=== PATIENT | female | born 2000 | race American Indian/Alaskan Native ===

== ENCOUNTER 2021-02-22 04:13 | Inpatient (IN) | payer MEDICAID, OTHER ==
[2021-02-22] MEDS ORDERED: MORPHINE 4 MG/1 ML INJ IV ONE ×3 (04:49→22:00)
[2021-02-22] MEDS ORDERED: SODIUM CHLORIDE 0.9% 1000 ML 1,000 ML IV ONE ×2 (04:49→07:31)
[2021-02-22] MEDS ORDERED: METOCLOPRAMIDE 10 MG/2 ML INJ IV ONE (04:50)
--- NOTE | 2021-02-22 04:54 | Event Note ---
Date: 02/22/21 Medical screening examination note: 20-year-old female, who reports that she is a type II diabetic, resenting to the ER today with complaints of abdominal cramping, hyperglycemia, nausea. Patient appears uncomfortable. Place patient on resident doctor. obtain appropriate laboratory studies. Fluids, pain medication, nausea medication, detailed history and physical to be performed by oncoming provider. Vital Signs 02/22/21 04:16 Temperature 98.9 F Pulse Rate 148 H Respiratory 19 Rate Blood Pressure 140/98 [Left] O2 Sat by Pulse 100 Oximetry
[2021-02-22 06:05] LABS: Alanine Aminotransferase 16 units/L (7-56); Albumin 5.1 g/dL (3.9-5); BUN/Creatinine Ratio 23; Blood Urea Nitrogen 28 mg/dL (7-17); Calcium 11.3 mg/dL (8.4-10.2); Hemolysis Index 24
[2021-02-22 06:33] LABS: Basophils % (Auto) 0.1 % (0.0-1.8); Hematocrit 51.7 % (30.3-42.9); Hemoglobin 15.6 gm/dl (10.1-14.3); Lymphocytes # (Auto) 0.7 K/mm3 (1.2-5.4); Lymphocytes % (Auto) 7.4 % (13.4-35.0); Mean Corpuscular HGB Conc 30 % (30-34); Mean Corpuscular Volume 86 fl (79-97); Monocytes # (Auto) 0.6 K/mm3 (0.0-0.8); Monocytes % (Auto) 6.3 % (0.0-7.3); Platelet Count 295 K/mm3 (140-440); Red Cell Distribution Width 17.8 % (13.2-15.2)
--- NOTE | 2021-02-22 06:34 | Emergency Department Report ---
ED General Adult HPI - General Chief complaint: Hyperglycemia Stated complaint: HIGH BLOOD SUGAR Time Seen by Provider: 02/22/21 05:57 Source: EMS Mode of arrival: Stretcher Limitations: No Limitations - History of Present Illness Initial comments: Patient presented secondary to elevated blood sugar. Patient states that she is having abdominal pain associate with her hyperglycemia. She has type 2 diabetes by her history. She also reports a history of gastroparesis and states that is what is bothering her. She reports having cramping upper abdominal pain. It is aching in nature. It is cramping in nature. It does not radiate or migrate. Patient has no history of travel or trauma. She has had nausea with vomiting but no hematemesis or coffee-ground emesis. She denies bilious vomitus. Patient reports urinary frequency but no dysuria or urgency. She states that this is consistent with her diabetes and elevated blood sugar. Patient states she has not had any sick contacts. She has not eaten anything that tasted bad or unusual. - Related Data Allergies Allergy/AdvReac Type Severity Reaction Status Date / Time No Known Allergies Allergy Verified 02/22/21 04:16 ED Review of Systems ROS: Stated complaint: HIGH BLOOD SUGAR Other details as noted in HPI Comment: All other systems reviewed and negative Constitutional: denies: fever Eyes: denies: vision change ENT: denies: throat pain Respiratory: denies: cough Cardiovascular: denies: chest pain Endocrine: denies: unexplained weight loss Gastrointestinal: as per HPI Genitourinary: as per HPI Musculoskeletal: denies: back pain Skin: denies: rash Neurological: denies: headache Hematological/Lymphatic: denies: easy bruising ED Past Medical Hx - Past Medical History Hx Diabetes: Yes Additional medical history: Gastroparesis - Family History Family history: diabetes ED Physical Exam - General Limitations: No Limitations, Other (Pulse ox noted and normal) General appearance: in distress (Mild), other (Somnolent) - Head Head exam: Present: atraumatic, normocephalic - Eye Eye exam: Present: normal appearance, EOMI - ENT ENT exam: Present: mucous membranes dry, normal external ear exam - Neck Neck exam: Present: normal inspection. Absent: meningismus - Respiratory Respiratory exam: Present: normal lung sounds bilaterally. Absent: respiratory distress - Cardiovascular Cardiovascular Exam: Present: normal rhythm, tachycardia - GI/Abdominal GI/Abdominal exam: Present: soft, tenderness (Epigastric). Absent: distended, guarding, rebound - Extremities Exam Extremities exam: Present: other (Delayed capillary refill of 4 seconds). Absent: calf tenderness - Back Exam Back exam: Absent: CVA tenderness (R), CVA tenderness (L) - Neurological Exam Neurological exam: Present: oriented X3, CN II-XII intact. Absent: motor sensory deficit - Psychiatric Psychiatric exam: Present: normal affect, normal mood - Skin Skin exam: Present: warm, dry ED Course Vital Signs 02/22/21 04:16 Temperature 98.9 F Pulse Rate 148 H Respiratory 19 Rate Blood Pressure 140/98 [Left] O2 Sat by Pulse 100 Oximetry - Reevaluation(s) Reevaluation #1: 02/22/21 06:33 IV and labs were ordered. Old records reviewed. Reevaluation #2: 02/22/21 07:12 Labs have been noted. DKA protocol was started. Hospitalist was notified who agrees to admit. ED Medical Decision Making - Lab Data Result diagrams: 02/22/21 05:15 02/22/21 05:15 Rhythm strip: Sinus tachycardia without ectopy. Monitor observe 10 seconds. - Medical Decision Making Patient presents with abdominal pain. She was found to be tachycardic and dehydrated. She has evidence of DKA based on her presentation. DKA protocol was instituted. Patient was admitted to the intensive care unit on an insulin drip. She does have hyperkalemia which will correct with treatment. She has hyper per Tony C. Phyllis which will also correct with hydration. She has been hydrated here. She does not appear to have any obvious infectious source. She is not . Critical Care Time: Yes (40 minutes exclusive of all procedures) Critical care attestation.: If time is entered above; I have spent that time in minutes in the direct care of this critically ill patient, excluding procedure time. ED Disposition Clinical Impression: Dehydration DKA (diabetic ketoacidosis) Qualifiers: Diabetes mellitus type: type 2 Diabetes mellitus complication detail: without coma Qualified Code(s): E11.10 - Type 2 diabetes mellitus with ketoacidosis without coma Disposition: 09 ADMITTED INPATIENT Is pt being admited?: Yes Condition: Stable Instructions: Diabetic Ketoacidosis (ED) Referrals: PRIMARY CARE, [Primary Care Provider] - 3-5 Days
[2021-02-22] MEDS ORDERED: DEXTROSE 50% IN WATER (25GM) 50 ML SYRINGE IV PRN (07:09)
[2021-02-22 08:06] LABS: BUN/Creatinine Ratio 25; Blood Urea Nitrogen 25 mg/dL (7-17); Calcium 8.7 mg/dL (8.4-10.2); Hemolysis Index 39
[2021-02-22] MEDS: INSULIN REGULAR, HUMAN 100 UNITS in SODIUM CHLORIDE 0.9% 99 ML IV SCH (08:18)
--- NOTE | 2021-02-22 09:21 | History and Physical Report ---
History of Present Illness Date of examination: 02/22/21 History of present illness: HPI: 20-year-old female with self-reported history of type 2 diabetes and gastroparesis presenting to our facility with abdominal pain, hyperglycemia, nausea. She describes the abdominal pain as generalized and "achy" in nature patient states that onset of symptoms was 1 to 2 days ago. Nausea is associated with bilious vomiting but patient denies hematemesis. Symptoms associated with increased polyuria. She denies any recent upper respiratory infections, urinary tract infection, exposure to any sick contacts. Remainder of ROS negative except for stated above When questioned about her diabetic regimen, patient unable to provide specific details. She states that she does not follow-up with a physician as an outpatient for her medication regimen. She states that if she primarily gets her insulin from hospital admissions. ED Course: PMHx: Type 2 diabetes, gastroparesis, medication noncompliance PSHx: Denies FHx: Reviewed noncontributory SHx: Tobacco use-denies ETOH Use-denies Recreational Drug Use-denies Lives with her mother and sister. Medications and Allergies Allergies Allergy/AdvReac Type Severity Reaction Status Date / Time No Known Allergies Allergy Verified 02/22/21 04:16 Active Meds: Active Medications Acetaminophen (Acetaminophen 325 Mg Tab) 650 mg PO Q4H PRN PRN Reason: Pain MILD(1-3)/Fever >100.5/HATCH Dextrose (Dextrose 50% In Water (25gm) 50 Ml Syringe) 0 ml IV Q30MIN PRN; Protocol PRN Reason: Hypoglycemia Insulin Human Regular 100 (units/ Sodium Chloride) 100 mls @ 1 mls/hr IV TITR DAVID; Protocol Last Admin: 02/22/21 08:18 Dose: 7 units/hr, 7 mls/hr Documented by: Ondansetron HCl (Ondansetron 4 Mg/2 Ml Inj) 4 mg IV Q8H PRN PRN Reason: Nausea And Vomiting Oxycodone/Acetaminophen (Oxycodone /Acetaminophen 5-325mg Tab) 1 tab PO Q6H PRN PRN Reason: Pain, Moderate (4-6) Sodium Chloride (Sodium Chloride 0.9% 10 Ml Flush Syringe) 10 ml IV BID DAVID Sodium Chloride (Sodium Chloride 0.9% 10 Ml Flush Syringe) 10 ml IV PRN PRN PRN Reason: LINE FLUSH Review of Systems All systems: negative Gastrointestinal: abdominal pain, nausea, vomiting Genitourinary Female: urinary frequency Exam - Physical Exam Narrative exam: Physical Exam: VITAL SIGNS: Reviewed. GENERAL: The patient appears normally developed, Vital signs as documented. M ild distress HEAD: No signs of head trauma. EYES: Pupils are equal. Extraocular motions intact. EARS: Hearing grossly intact. MOUTH: Oropharynx is normal. NECK: No adenopathy, no JVD. CHEST: Chest with clear breath sounds bilaterally. No wheezes, rales, or rhonchi. CARDIAC: Regular rate and rhythm. S1 and S2, without murmurs, gallops, or rubs. VASCULAR: No Edema. Peripheral pulses normal and equal in all extremities. ABDOMEN: Tender to palpation. Bowel Sounds normal. MUSCULOSKELETAL: Good range of motion of all major joints. Extremities without clubbing, cyanosis or edema. NEUROLOGIC EXAM: Alert and oriented x 4. no focal sensory or strength deficits. PSYCHIATRIC: Mood normal. SKIN: detail exam as documented in skin assessment - Constitutional Vitals: Temp Pulse Resp BP Pulse Ox 98.9 F 140 H 18 132/76 100 02/22/21 04:16 02/22/21 06:16 02/22/21 06:16 02/22/21 06:16 02/22/21 06:16 Results - Labs CBC & Chem 7: 02/22/21 05:15 02/22/21 11:10 Labs: Laboratory Last Values WBC 9.7 K/mm3 (4.5-11.0) 02/22/21 05:15 RBC 6.00 M/mm3 (3.65-5.03) H 02/22/21 05:15 Hgb 15.6 gm/dl (10.1-14.3) H 02/22/21 05:15 Hct 51.7 % (30.3-42.9) H 02/22/21 05:15 MCV 86 fl (79-97) 02/22/21 05:15 MCH 26 pg (28-32) L 02/22/21 05:15 MCHC 30 % (30-34) 02/22/21 05:15 RDW 17.8 % (13.2-15.2) H 02/22/21 05:15 Plt Count 295 K/mm3 (140-440) 02/22/21 05:15 Lymph % (Auto) 7.4 % (13.4-35.0) L 02/22/21 05:15 [place] % (Auto) 6.3 % (0.0-7.3) 02/22/21 05:15 Eos % (Auto) 0.0 % (0.0-4.3) 02/22/21 05:15 Baso % (Auto) 0.1 % (0.0-1.8) 02/22/21 05:15 Lymph # (Auto) 0.7 K/mm3 (1.2-5.4) L 02/22/21 05:15 [place] # (Auto) 0.6 K/mm3 (0.0-0.8) 02/22/21 05:15 Eos # (Auto) 0.0 K/mm3 (0.0-0.4) 02/22/21 05:15 Baso # (Auto) 0.0 K/mm3 (0.0-0.1) 02/22/21 05:15 Seg Neutrophils % 86.2 % (40.0-70.0) H 02/22/21 05:15 Seg Neutrophils # 8.4 K/mm3 (1.8-7.7) H 02/22/21 05:15 VBG pH 7.176 (7.320-7.420) L* 02/22/21 05:15 Sodium 143 mmol/L (137-145) 02/22/21 07:37 Potassium 5.3 mmol/L (3.6-5.0) H 02/22/21 07:37 Chloride 109.8 mmol/L (98-107) H 02/22/21 07:37 Carbon Dioxide 5 mmol/L (22-30) L* 02/22/21 07:37 Anion Gap 34 mmol/L 02/22/21 07:37 BUN 25 mg/dL (7-17) H 02/22/21 07:37 Creatinine 1.0 mg/dL (0.6-1.2) 02/22/21 07:37 Estimated GFR > 60 ml/min 02/22/21 07:37 BUN/Creatinine Ratio 25 % 02/22/21 07:37 Glucose 458 mg/dL (65-100) H 02/22/21 07:37 POC Glucose 399 mg/dL (70-105) H 02/22/21 08:04 Calcium 8.7 mg/dL (8.4-10.2) D 02/22/21 07:37 Phosphorus 3.20 mg/dL (2.5-4.5) 02/22/21 07:37 Magnesium 1.90 mg/dL (1.7-2.3) 02/22/21 07:37 Total Bilirubin 0.20 mg/dL (0.1-1.2) 02/22/21 05:15 AST 14 units/L (5-40) 02/22/21 05:15 ALT 16 units/L (7-56) 02/22/21 05:15 Alkaline Phosphatase 80 units/L (35-129) 02/22/21 05:15 Total Protein 9.5 g/dL (6.3-8.2) H 02/22/21 05:15 Albumin 5.1 g/dL (3.9-5) H 02/22/21 05:15 Albumin/Globulin Ratio 1.2 % 02/22/21 05:15 HCG, Quant < 2 mIU/mL (0-4) 02/22/21 05:15 Assessment and Plan Assessment and plan: #Diabetic ketoacidosis - abd pain, N/V, GAP: 37.5 on admission, ph 7.2, bicarb: 5. - likely precipitated by noncompliance with insulin regimen - insulin gtt - Currently on D5/1/2 NS on my encounter - dka protocol, BMP q4hr, monitor for gap closure - NPO while GAP remains open - CCM consultation, discussed case with Dr. Claudio #Metabolic acidosis - VBG ph: 7.2, low bicarb : 5 - correction of DKA as above #Hypercalcemia - 11.3, now 8.3 - aggressive fluid rehydration #Hyperkalemia - management as per dka protocol - last BMP, K 4.3 #Type II diabetes with hyperglycemia - type 2 per history - A1c: 14.2, poor control of diabetes - lacks outpatient follow up. #History of gastroparesis N.p.o. for now May benefit from sucralfate/Reglan/erythromycin p.o. once patient able to tolerate p.o. IV Zofran as needed #Advance care planning Code Status: Full Code. Diet: NPO VTE PPx: not indicated GI PPx: not indicated Dispo: ICU, monitor for gap closure Disease education conducted, care plan discussed, diagnoses discussed, prognosis discussed, patient is full code, patient acknowledges understanding and agree with care plan, +30 minutes. The high probability of a clinically significant, sudden or life threatening deterioration of the [endo, renal] system(s) required my full and direct attention, intervention and personal management. The aggregate critical care time was [60] minutes. This time is in addition to time spent performing reporte d procedures but includes the following: [x] Data Review and interpretation [x] Patient assessment and monitoring of vital signs [x] Documentation [x] Medication orders and management
[2021-02-22 09:56] LABS: BUN/Creatinine Ratio 25; Blood Urea Nitrogen 25 mg/dL (7-17); Hemolysis Index 49
[2021-02-22] MEDS ORDERED: oxyCODONE /ACETAMINOPHEN 5-325MG TAB PO PRN (10:00)
[2021-02-22] MEDS ORDERED: ACETAMINOPHEN 325 MG TAB PO PRN (10:00)
[2021-02-22 12:03] LABS: BUN/Creatinine Ratio 24; Blood Urea Nitrogen 22 mg/dL (7-17); Calcium 9.1 mg/dL (8.4-10.2); Hemolysis Index 11
[2021-02-22] MEDS ORDERED: D5W/0.45% NACL 1,000 ML IV SCH (13:00)
[2021-02-22] MEDS: D5W/0.45% NACL/KCL 20 MEQ 20 MEQ/1,000 ML BAG IV SCH (14:49)
--- NOTE | 2021-02-22 16:09 | Consultation ---
History of Present Illness Consult date: 02/22/21 Requesting physician: VENKATESH HELTON Reason for consult: other (DKA) History of present illness: Patient presented secondary to elevated blood sugar. Patient states that she is having abdominal pain associate with her hyperglycemia. She has type 2 diabetes by her history. She also reports a history of gastroparesis and states that is what is bothering her. She reports having cramping upper abdominal pain. It is aching in nature. It is cramping in nature. It does not radiate or migrate. Patient has no history of travel or trauma. She has had nausea with vomiting but no hematemesis or coffee-ground emesis. She denies bilious vomitus. Patient reports urinary frequency but no dysuria or urgency. She states that this is consistent with her diabetes and elevated blood sugar. Patient states she has not had any sick contacts. She has not eaten anything that tasted bad or unusual. She has been a diabetic and on insulin since 8th grade. Patient seen and examined. Vitals, labs, medications, chart reviewed. She is lying in position on insulin at 6 units/hour Past History Past Medical History: diabetes Past Surgical History: No surgical history Social history: lives with family, full code. denies: smoking, alcohol abuse, IV drug use Family history: no significant family history Medications and Allergies Allergies Allergy/AdvReac Type Severity Reaction Status Date / Time No Known Allergies Allergy Verified 02/22/21 04:16 Active Meds: Active Medications Acetaminophen (Acetaminophen 325 Mg Tab) 650 mg PO Q4H PRN PRN Reason: Pain MILD(1-3)/Fever >100.5/HATCH Dextrose (Dextrose 50% In Water (25gm) 50 Ml Syringe) 0 ml IV Q30MIN PRN; Protocol PRN Reason: Hypoglycemia Insulin Human Regular 100 (units/ Sodium Chloride) 100 mls @ 1 mls/hr IV TITR DAVID; Protocol Last Titration: 02/22/21 15:36 Dose: 5 units/hr, 5 mls/hr Documented by: Potassium Chloride/Dextrose/Sod Cl (D5w/0.45% Nacl/Kcl 20 Meq) 20 meq in 1,000 mls @ 150 mls/hr IV DIRECT DAVID Last Admin: 02/22/21 14:49 Dose: 150 mls/hr Documented by: Ondansetron HCl (Ondansetron 4 Mg/2 Ml Inj) 4 mg IV Q8H PRN PRN Reason: Nausea And Vomiting Oxycodone/Acetaminophen (Oxycodone /Acetaminophen 5-325mg Tab) 1 tab PO Q6H PRN PRN Reason: Pain, Moderate (4-6) Sodium Chloride (Sodium Chloride 0.9% 10 Ml Flush Syringe) 10 ml IV BID DAVID Last Admin: 02/22/21 09:45 Dose: Not Given Documented by: Sodium Chloride (Sodium Chloride 0.9% 10 Ml Flush Syringe) 10 ml IV PRN PRN PRN Reason: LINE FLUSH Review of Systems Constitutional: chills, no weight loss, no weight gain, no fever, no sweats, no night sweats Cardiovascular: lightheadedness, no chest pain, no orthopnea, no palpitations, no edema, no syncope Respiratory: no cough, no cough with sputum, no excessive sputum, no hemoptysis, no shortness of breath Gastrointestinal: abdominal pain, nausea, vomiting, no diarrhea, no constipation Musculoskeletal: no neck stiffness, no neck pain, no low back pain, no leg numbness/tingling, no redness of joints Neurological: weakness, no head injury, no transient paralysis, no paralysis, no parathesias, no seizures, no syncope Physical Examination Vital signs: Vital Signs Temp Pulse Resp BP Pulse Ox 98.9 F 148 H 19 140/98 100 02/22/21 04:16 02/22/21 04:16 02/22/21 04:16 02/22/21 04:16 02/22/21 04:16 General appearance: appears uncomfortable, other (lying quietly in bed) Eyes: non-icteric ENT: oropharynx dry Neck: supple, no lymphadenopathy, no JVD Effort: mildly labored Ascultation: Bilateral: clear, diminished breath sounds Cardiovascular: other (Tachycardia, S1,S2, no murmurs) Integumentary: normal Extremities: no cyanosis, no edema, pulses normal Musculoskeletal: no deformities normal mental status, non-focal exam, pupils equal and round, motor strength normal and anxious Results - Laboratory Findings CBC and BMP: 02/22/21 05:15 02/22/21 11:10 Abnormal lab findings: Abnormal Labs 02/22/21 02/22/21 02/22/21 05:15 05:15 05:15 RBC 6.00 H Hgb 15.6 H Hct 51.7 H MCH 26 L RDW 17.8 H Lymph % (Auto) 7.4 L Lymph # (Auto) 0.7 L Seg Neutrophils % 86.2 H Seg Neutrophils # 8.4 H VBG pH 7.176 L* Sodium Potassium 5.5 H Chloride 96.5 L Carbon Dioxide 5 L* BUN 28 H Glucose 566 H* POC Glucose Hemoglobin A1c Calcium 11.3 H Total Protein 9.5 H Albumin 5.1 H 02/22/21 02/22/21 02/22/21 07:37 08:04 09:03 RBC Hgb Hct MCH RDW Lymph % (Auto) Lymph # (Auto) Seg Neutrophils % Seg Neutrophils # VBG pH Sodium Potassium 5.3 H 5.3 H Chloride 109.8 H 111.5 H Carbon Dioxide 5 L* 5 L* BUN 25 H 25 H Glucose 458 H 403 H POC Glucose 399 H Hemoglobin A1c Calcium Total Protein Albumin 02/22/21 02/22/21 02/22/21 09:23 10:16 11:09 RBC Hgb Hct MCH RDW Lymph % (Auto) Lymph # (Auto) Seg Neutrophils % Seg Neutrophils # VBG pH Sodium Potassium Chloride Carbon Dioxide BUN Glucose POC Glucose 328 H 251 H 224 H Hemoglobin A1c Calcium Total Protein Albumin 02/22/21 02/22/21 02/22/21 11:10 11:59 13:37 RBC Hgb Hct MCH RDW Lymph % (Auto) Lymph # (Auto) Seg Neutrophils % Seg Neutrophils # VBG pH Sodium 147 H Potassium Chloride 114.6 H Carbon Dioxide 7 L* BUN 22 H Glucose 248 H POC Glucose 188 H 188 H Hemoglobin A1c Calcium Total Protein Albumin 02/22/21 02/22/21 02/22/21 14:41 15:36 Unknown RBC Hgb Hct MCH RDW Lymph % (Auto) Lymph # (Auto) Seg Neutrophils % Seg Neutrophils # VBG pH Sodium Potassium Chloride Carbon Dioxide BUN Glucose POC Glucose 195 H 178 H Hemoglobin A1c 14.2 H Calcium Total Protein Albumin Assessment and Plan Diabetic ketoacidosis -High anion gap metabolic acidosis - VBG ph: 7.2, low bicarb : 5 History of gastroparesis Erythrocytosis -Admit ICU -Serial BMPs, insulin infusion, Replete electrolytes as indicated and per protocol -IV fluids per protcol -Continue with DKA protocol -VTE prophylaxis with Heparin -Diabetic educations and lifestyle modifications -Discussed need for medical compliance -Promotility agents for gastroparesis, may benefit from evaluation for gastric pacemaker as outpatient -Get fasting lipid panel, HbA1C, thyroid function panel Discussed care plan with the patient, nursing staff Discussed with primary service, Dr. Helton CODE STATUS: FULL CODE CONDITION:CRITICAL PROGNOSIS: FAIR The high probability of a clinically significant, sudden or life threatening deterioration of the [endocrine ] system(s) required my full and direct attention, intervention and personal management. The aggregate critical care time was [35] minutes. This time is in addition to time spent performing reported procedures but includes the following: [x] Data Review and interpretation [x] Patient assessment and monitoring of vital signs [x] Documentation [x] Medication orders and management
[2021-02-22 22:19] LABS: BUN/Creatinine Ratio 18; Blood Urea Nitrogen 14 mg/dL (7-17); Calcium 9.7 mg/dL (8.4-10.2); Hemolysis Index 0
[2021-02-23] MEDS ORDERED: MORPHINE 4 MG/1 ML INJ IV ONE (02:21)
[2021-02-23] MEDS: INSULIN REGULAR, HUMAN 100 UNITS in SODIUM CHLORIDE 0.9% 99 ML IV SCH (04:07)
[2021-02-23 05:24] LABS: Basophils % (Auto) 0.1 % (0.0-1.8); Lymphocytes # (Auto) 1.1 K/mm3 (1.2-5.4); Lymphocytes % (Auto) 18.9 % (13.4-35.0); Mean Corpuscular HGB Conc 31 % (30-34); Mean Corpuscular Volume 83 fl (79-97); Monocytes # (Auto) 0.7 K/mm3 (0.0-0.8); Platelet Count 213 K/mm3 (140-440); Red Blood Count 5.28 M/mm3 (3.65-5.03); Red Cell Distribution Width 17.7 % (13.2-15.2)
[2021-02-23 05:32] LABS: Blood Urea Nitrogen 12 mg/dL (7-17); Calcium 9.4 mg/dL (8.4-10.2); Hemolysis Index 7
[2021-02-23 05:34] LABS: BUN/Creatinine Ratio 17
[2021-02-23 05:43] LABS: Hematocrit 43.5 % (30.3-42.9); Hemoglobin 13.5 gm/dl (10.1-14.3)
[2021-02-23] MEDS: HEPARIN 5,000 UNIT/1 ML VIAL SUB-Q SCH ×3 (09:25→22:54)
[2021-02-23 10:19] LABS: Blood Urea Nitrogen 9 mg/dL (7-17); Calcium 9.3 mg/dL (8.4-10.2); Hemolysis Index 7
[2021-02-23 10:38] LABS: BUN/Creatinine Ratio 13
--- NOTE | 2021-02-23 12:13 | Progress Note ---
Assessment and Plan Diabetic ketoacidosis HAGMA Gastroparesis Erythrocytosis - continue IV insulin via DKA protocol - prn supplemental oxygen for target O2 sat's > 90% acutely - aspiration precautions (NPO status for now) - prn bronchodilators with pulmonary hygiene per RT - avoid nephrotoxins, renally dose all medications - AB's per ID rec's - prn analgesia per pain score - G.I. & VTE prophylaxis - PT/OT/ROM exercises - continue mobility protocols for pressure ulcer prophylaxis - Monitor hemodynamics closely - continue other care per attending / other consultants - discharge planning ongoing concurrently .... Re-evaluate in am & prn CONDITION: CRITICAL PROGNOSIS: GUARDED CODE STATUS: FULL CODE The high probability of a clinically significant, sudden or life-threatening deterioration of the [endocrine, GI & neurologic] system(s) required my full and direct attention, intervention and personal management. The aggregate critical care time was [32] minutes without overlap. Time includes spent on; [x] Data Review and interpretation [x] Patient assessment and monitoring of vital signs [x] Documentation [x] Medication orders and management Subjective Date of service: 02/23/21 Principal diagnosis: Diabetic ketoacidosis; HAGMA; Gastroparesis; Erythrocytosis Interval history: Patient is seen today for: Diabetic ketoacidosis; HAGMA; Gastroparesis; Erythrocytosis Seen and examined at bedside; 24hour events reviewed; nursing and respiratory care staff consulted; no adverse overnight events reported to me; resting peacefully in bed; remains of IV insulin therapy and DKA protocol; Objective Vital Signs - 12hr 02/23/21 02/23/21 02/23/21 06:38 07:28 07:30 Pulse Rate 110 H 97 H 100 H Respiratory 11 L 18 16 Rate Blood Pressure 146/102 146/102 Blood Pressure 138/101 [Left] O2 Sat by Pulse 99 98 97 Oximetry 02/23/21 02/23/21 02/23/21 08:00 08:31 09:01 Pulse Rate 81 95 H 98 H Respiratory 16 17 16 Rate Blood Pressure 145/103 144/106 141/102 Blood Pressure [Left] O2 Sat by Pulse 100 99 100 Oximetry 02/23/21 09:31 Pulse Rate 87 Respiratory 14 Rate Blood Pressure 134/99 Blood Pressure [Left] O2 Sat by Pulse 100 Oximetry Constitutional: appears uncomfortable, other (lying quietly in bed) Eyes: non-icteric ENT: oropharynx dry Neck: supple, no lymphadenopathy, no JVD Effort: mildly labored Ascultation: Bilateral: clear, diminished breath sounds Cardiovascular: other (Tachycardia, S1,S2, no murmurs) Integumentary: normal Extremities: no cyanosis, no edema, pulses normal Neurologic: normal mental status, non-focal exam, pupils equal and round, motor strength normal and Psychiatric: anxious CBC and BMP: 02/23/21 04:15 02/23/21 09:45 Abnormal lab findings: Abnormal Labs 02/22/21 02/22/21 02/22/21 05:15 05:15 05:15 RBC 6.00 H Hgb 15.6 H Hct 51.7 H MCH 26 L RDW 17.8 H Lymph % (Auto) 7.4 L [place] % (Auto) Lymph # (Auto) 0.7 L Seg Neutrophils % 86.2 H Seg Neutrophils # 8.4 H VBG pH 7.176 L* Sodium Potassium 5.5 H Chloride 96.5 L Carbon Dioxide 5 L* BUN 28 H Glucose 566 H* POC Glucose Hemoglobin A1c Calcium 11.3 H Total Protein 9.5 H Albumin 5.1 H 02/22/21 02/22/21 02/22/21 07:37 08:04 09:03 RBC Hgb Hct MCH RDW Lymph % (Auto) [place] % (Auto) Lymph # (Auto) Seg Neutrophils % Seg Neutrophils # VBG pH Sodium Potassium 5.3 H 5.3 H Chloride 109.8 H 111.5 H Carbon Dioxide 5 L* 5 L* BUN 25 H 25 H Glucose 458 H 403 H POC Glucose 399 H Hemoglobin A1c Calcium Total Protein Albumin 02/22/21 02/22/21 02/22/21 09:23 10:16 11:09 RBC Hgb Hct MCH RDW Lymph % (Auto) [place] % (Auto) Lymph # (Auto) Seg Neutrophils % Seg Neutrophils # VBG pH Sodium Potassium Chloride Carbon Dioxide BUN Glucose POC Glucose 328 H 251 H 224 H Hemoglobin A1c Calcium Total Protein Albumin 02/22/21 02/22/21 02/22/21 11:10 11:59 13:37 RBC Hgb Hct MCH RDW Lymph % (Auto) [place] % (Auto) Lymph # (Auto) Seg Neutrophils % Seg Neutrophils # VBG pH Sodium 147 H Potassium Chloride 114.6 H Carbon Dioxide 7 L* BUN 22 H Glucose 248 H POC Glucose 188 H 188 H Hemoglobin A1c Calcium Total Protein Albumin 02/22/21 02/22/21 02/22/21 14:41 15:36 16:46 RBC Hgb Hct MCH RDW Lymph % (Auto) [place] % (Auto) Lymph # (Auto) Seg Neutrophils % Seg Neutrophils # VBG pH Sodium Potassium Chloride Carbon Dioxide BUN Glucose POC Glucose 195 H 178 H 159 H Hemoglobin A1c Calcium Total Protein Albumin 02/22/21 02/22/21 02/22/21 18:22 20:04 21:00 RBC Hgb Hct MCH RDW Lymph % (Auto) [place] % (Auto) Lymph # (Auto) Seg Neutrophils % Seg Neutrophils # VBG pH Sodium Potassium Chloride Carbon Dioxide BUN Glucose POC Glucose 163 H 123 H 128 H Hemoglobin A1c Calcium Total Protein Albumin 02/22/21 02/22/21 02/22/21 21:50 22:04 23:13 RBC Hgb Hct MCH RDW Lymph % (Auto) [place] % (Auto) Lymph # (Auto) Seg Neutrophils % Seg Neutrophils # VBG pH Sodium 147 H Potassium Chloride 115.7 H Carbon Dioxide 16 L D BUN Glucose 172 H POC Glucose 154 H 157 H Hemoglobin A1c Calcium Total Protein Albumin 02/22/21 02/23/21 02/23/21 Unknown 00:17 01:31 RBC Hgb Hct MCH RDW Lymph % (Auto) [place] % (Auto) Lymph # (Auto) Seg Neutrophils % Seg Neutrophils # VBG pH Sodium Potassium Chloride Carbon Dioxide BUN Glucose POC Glucose 154 H 118 H Hemoglobin A1c 14.2 H Calcium Total Protein Albumin 02/23/21 02/23/21 02/23/21 02:58 04:05 04:15 RBC 5.28 H Hgb Hct 43.5 H D MCH 26 L RDW 17.7 H Lymph % (Auto) [place] % (Auto) 12.0 H Lymph # (Auto) 1.1 L Seg Neutrophils % Seg Neutrophils # VBG pH Sodium Potassium Chloride Carbon Dioxide BUN Glucose POC Glucose 143 H 179 H Hemoglobin A1c Calcium Total Protein Albumin 02/23/21 02/23/21 02/23/21 04:15 05:24 06:44 RBC Hgb Hct MCH RDW Lymph % (Auto) [place] % (Auto) Lymph # (Auto) Seg Neutrophils % Seg Neutrophils # VBG pH Sodium Potassium Chloride 112.8 H Carbon Dioxide 18 L BUN Glucose 180 H POC Glucose 155 H 135 H Hemoglobin A1c Calcium Total Protein Albumin 02/23/21 02/23/21 02/23/21 08:15 09:45 10:05 RBC Hgb Hct MCH RDW Lymph % (Auto) [place] % (Auto) Lymph # (Auto) Seg Neutrophils % Seg Neutrophils # VBG pH Sodium Potassium Chloride 109.9 H Carbon Dioxide 19 L BUN Glucose 164 H POC Glucose 177 H 153 H Hemoglobin A1c Calcium Total Protein Albumin
[2021-02-23] MEDS: D5W/0.45% NACL/KCL 20 MEQ 20 MEQ/1,000 ML BAG IV SCH (14:58)
[2021-02-23 15:34] LABS: BUN/Creatinine Ratio 12; Blood Urea Nitrogen 7 mg/dL (7-17); Calcium 9.1 mg/dL (8.4-10.2); Hemolysis Index 12
--- NOTE | 2021-02-23 16:19 | Progress Note ---
Assessment and Plan Assessment and plan: #Diabetic ketoacidosis #Type 2 diabetes poorly controlled -A1c 14.2% -Reports taking 35 units of Lantus in the morning and 30 at night -Insulin GTT for now, will cover with 30 units of Lantus once AG close -Last anion gap 15, will stop insulin drip once AG less than 13 -D5 1/2 NS -will need outpatient follow up with PCP #Metabolic acidosis -improving, likely 22 to DKA -if continues to have low bicarb will consider one dose of sodium bicarbonate #History of gastroparesis -no longer having abd/nausea/vomiting -will need further evaluation outpatient #Hypercalcemia -resolved #Hyperkalemia -resolved, last K 3.8 Disposition Plan: continue medical management History Interval history: No acute events overnight. Patient reports no longer have abdominal pain, nausea or vomiting. Feels fatigued and thirsty. No other complaints. Hospitalist Physical - Physical exam Narrative exam: GENERAL: Well-developed well-nourished. Lying in bed, no acute distress. CHEST/LUNGS: CTAB on room air HEART/CARDIOVASCULAR: RRR. No murmur, rubs or gallops appreciated. ABDOMEN: +BS. NT/ND. NEURO: No focal motor deficit. Follows all commands. MUSCULOSKELETAL: No joint effusion EXTREMITIES: No cyanosis, clubbing or edema. PSYCH: Cooperative. - Constitutional Vitals: Temp Pulse Resp BP Pulse Ox 98.9 F 105 H 23 134/85 100 02/22/21 14:36 02/23/21 14:30 02/23/21 14:30 02/23/21 14:30 02/23/21 14:30 Results - Labs CBC & Chem 7: 02/23/21 04:15 02/23/21 14:30 Labs: Laboratory Last Values WBC 6.1 K/mm3 (4.5-11.0) 02/23/21 04:15 RBC 5.28 M/mm3 (3.65-5.03) H 02/23/21 04:15 Hgb 13.5 gm/dl (10.1-14.3) 02/23/21 04:15 Hct 43.5 % (30.3-42.9) H D 02/23/21 04:15 MCV 83 fl (79-97) 02/23/21 04:15 MCH 26 pg (28-32) L 02/23/21 04:15 MCHC 31 % (30-34) 02/23/21 04:15 RDW 17.7 % (13.2-15.2) H 02/23/21 04:15 Plt Count 213 K/mm3 (140-440) 02/23/21 04:15 Lymph % (Auto) 18.9 % (13.4-35.0) 02/23/21 04:15 [place] % (Auto) 12.0 % (0.0-7.3) H 02/23/21 04:15 Eos % (Auto) 0.0 % (0.0-4.3) 02/23/21 04:15 Baso % (Auto) 0.1 % (0.0-1.8) 02/23/21 04:15 Lymph # (Auto) 1.1 K/mm3 (1.2-5.4) L 02/23/21 04:15 [place] # (Auto) 0.7 K/mm3 (0.0-0.8) 02/23/21 04:15 Eos # (Auto) 0.0 K/mm3 (0.0-0.4) 02/23/21 04:15 Baso # (Auto) 0.0 K/mm3 (0.0-0.1) 02/23/21 04:15 Seg Neutrophils % 69.0 % (40.0-70.0) 02/23/21 04:15 Seg Neutrophils # 4.2 K/mm3 (1.8-7.7) 02/23/21 04:15 VBG pH 7.176 (7.320-7.420) L* 02/22/21 05:15 Sodium 138 mmol/L (137-145) 02/23/21 14:30 Potassium 3.6 mmol/L (3.6-5.0) 02/23/21 14:30 Chloride 107.7 mmol/L (98-107) H 02/23/21 14:30 Carbon Dioxide 19 mmol/L (22-30) L 02/23/21 14:30 Anion Gap 15 mmol/L 02/23/21 14:30 BUN 7 mg/dL (7-17) 02/23/21 14:30 Creatinine 0.6 mg/dL (0.6-1.2) 02/23/21 14:30 Estimated GFR > 60 ml/min 02/23/21 14:30 BUN/Creatinine Ratio 12 % 02/23/21 14:30 Glucose 167 mg/dL (65-100) H 02/23/21 14:30 POC Glucose 145 mg/dL (70-105) H 02/23/21 14:25 Hemoglobin A1c 14.2 % (4-6) H 02/22/21 Unknown Calcium 9.1 mg/dL (8.4-10.2) 02/23/21 14:30 Phosphorus 3.20 mg/dL (2.5-4.5) 02/22/21 07:37 Magnesium 1.90 mg/dL (1.7-2.3) 02/22/21 07:37 Total Bilirubin 0.20 mg/dL (0.1-1.2) 02/22/21 05:15 AST 14 units/L (5-40) 02/22/21 05:15 ALT 16 units/L (7-56) 02/22/21 05:15 Alkaline Phosphatase 80 units/L (35-129) 02/22/21 05:15 Total Protein 9.5 g/dL (6.3-8.2) H 02/22/21 05:15 Albumin 5.1 g/dL (3.9-5) H 02/22/21 05:15 Albumin/Globulin Ratio 1.2 % 02/22/21 05:15 HCG, Quant < 2 mIU/mL (0-4) 02/22/21 05:15 Active Medications - Current Medications Current Medications: Generic Name Dose Route Start Last Admin Trade Name Luciana PRN Reason Stop Dose Admin Acetaminophen 650 mg 02/22/21 10:00 Acetaminophen 325 Mg Tab PO Q4H PRN Pain MILD(1-3)/Fever >100.5/HATCH Dextrose 0 ml 02/22/21 07:09 Dextrose 50% In Water (25gm) 50 Ml Syringe IV Q30MIN PRN Hypoglycemia Protocol Heparin Sodium (Porcine) 5,000 unit 02/22/21 17:00 02/23/21 14:57 Heparin 5,000 Unit/1 Ml Vial SUB-Q Not Given Q8HR DAVID Insulin Human Regular 100 100 mls @ 1 mls/hr 02/22/21 08:00 02/23/21 10:41 units/ Sodium Chloride IV 4 units/hr TITR DAVID 4 mls/hr Titration Protocol 1 UNITS/HR Potassium Chloride/Dextrose/Sod Cl 20 meq in 1,000 mls @ 150 mls/hr 02/22/21 14:00 02/23/21 14:58 D5w/0.45% Nacl/Kcl 20 Meq IV 150 mls/hr DIRECT DAVID Administration Insulin Glargine 30 units 02/23/21 16:13 Insulin Glargine 100 Units/Ml SUB-Q 02/23/21 16:14 ONCE ONE Ondansetron HCl 4 mg 02/22/21 10:00 Ondansetron 4 Mg/2 Ml Inj IV Q8H PRN Nausea And Vomiting Oxycodone/Acetaminophen 1 tab 02/22/21 10:00 Oxycodone /Acetaminophen 5-325mg Tab PO Q6H PRN Pain, Moderate (4-6) Sodium Chloride 10 ml 02/22/21 10:00 02/23/21 10:16 Sodium Chloride 0.9% 10 Ml Flush Syringe IV 10 ml BID DAVID Administration Sodium Chloride 10 ml 02/22/21 09:16 Sodium Chloride 0.9% 10 Ml Flush Syringe IV PRN PRN LINE FLUSH Nutrition/Malnutrition Assess - Dietary Evaluation Nutrition/Malnutrition Findings: Nutrition Notes Start: 02/22/21 12:00 Freq: Status: Active Protocol: Document 02/22/21 12:00 VIKTOR (Rec: 02/22/21 12:03 [email or web address] [id number]) Nutrition Notes Need for Assessment generated from: MD Order,Education Initial or Follow up Brief Note Current Diagnosis Diabetes Other Pertinent Diagnosis DKA, Gastroparesis Current Diet No diet ordered Labs/Tests A1C 14.2 Pertinent Medications Insulin gtt Weight Status Overweight Subjective/Other Information RD consulted for diet education and NTR recommendations. Pt in ED at this time. She was admitted with c/o abdominal pain, N/V. She is aware of S/S of hyperglycemia. Burn Absent Trauma Absent Minimum of two criteria No Nutrition Intervention Follow-Up By: 02/25/21 Additional Comments F/U: diet advancement, diet education needs, transfer to medical floor
[2021-02-23] MEDS ORDERED: INSULIN GLARGINE 100 UNITS/ML SUB-Q ONE (17:30)
[2021-02-23] MEDS ORDERED: DEXTROSE 50% IN WATER (25GM) 50 ML SYRINGE IV PRN (17:43)
[2021-02-23] MEDS: ONDANSETRON 4 MG/2 ML INJ IV PRN (20:21)
[2021-02-23] MEDS: INSULIN LISPRO 100 UNIT/ML SUB-Q SCH (22:56)
[2021-02-24] MEDS ORDERED: MORPHINE 2 MG/1 ML INJ IV ONE (00:07)
[2021-02-24] MEDS: D5W/0.45% NACL/KCL 20 MEQ 20 MEQ/1,000 ML BAG IV SCH ×2 (00:23→07:04)
[2021-02-24] MEDS: ONDANSETRON 4 MG/2 ML INJ IV PRN ×2 (03:18→13:52)
[2021-02-24] MEDS: HEPARIN 5,000 UNIT/1 ML VIAL SUB-Q SCH ×2 (07:04→13:48)
[2021-02-24 08:41] LABS: Bilirubin,Urine NEG (Negative); Blood,Urine LG (Negative); Color,Urine Red (Yellow); Urobilinogen,Urine < 2.0 mg/dL (<2.0)
[2021-02-24 08:43] LABS: RBC,Urine > 182.0 /HPF (0.0-6.0)
[2021-02-24 08:58] VITALS: BP 142/96
[2021-02-24] MEDS ORDERED: INSULIN GLARGINE 100 UNITS/ML SUB-Q SCH (09:00)
[2021-02-24] MEDS: INSULIN LISPRO 100 UNIT/ML SUB-Q SCH ×2 (09:49→13:44)
--- NOTE | 2021-02-24 12:40 | Discharge Summary ---
Providers - Providers Date of Admission: 02/22/21 09:16 Attending physician: BRITTNI TOURE MD 02/22/21 07:09 Consult to Dietitian/Nutrition [CONS] Routine Physician Instructions: Reason For Exam: DKA Reason for Consult: Nutrition Recommendations Reason for Consult: Diet education 02/22/21 13:59 Consult to Physician [CONS] Routine Comment: Consulting Provider: DANIEL DUCKWORTH Physician Instructions: Reason For Exam: dka Primary care physician: YARD HOSTLER Hospitalization Condition: Stable Disposition: 30 STILL A PATIENT Core Measure Documentation - Palliative Care Palliative Care/ Comfort Measures: Not Applicable Exam - Constitutional Vitals: Temp Pulse Resp BP Pulse Ox 97.9 F 89 16 142/96 98 02/24/21 07:44 02/24/21 07:44 02/24/21 07:44 02/24/21 07:44 02/24/21 08:34 Plan Care Plan Goals: Establish care with a primary care doctor within the next month to better care for her diabetes. You will start taking 30 units of Lantus at night. Please start a blood sugar diary. Try to measure and record fasting (upon waking), before and after meals blood sugars. Keep this log and take it to your first primary care visit. It is important that you take your insulin every day as needed. Uncontrolled blood sugars over time can lead to blindness, amputations of the limbs/digits and kidney failure etc. Assessment: 20-year-old female with history of uncontrolled diabetes, who presented in diabetic ketoacidosis. Insulin drip was started and eventually her anion gap closed. She was started on 30 units of Lantus and transferred out of ICU. Her blood sugars remained in the 150s to 200 range on basal insulin with sliding scale. Discussed with patient importance of establishing primary care. Will discharge with a 30-day prescription for Lantus as well as glucose supplies. Follow up with: PRIMARY CARE, [Primary Care Provider] - 3-5 Days Prescriptions: Lancets/Blood Glucose Strips [Fora [id number] [facility]-Lnva] 1 each MC DAILY 30 Days #2 combo..pkg Insulin Lispro [Humalog 100 UNITS/ML Kwikpen] 5 units SQ TIDWM #5 ml Insulin Glargine,Hum.rec.anlog [Lantus Solostar] 20 unit SQ BID 30 Days #14 ml Metoclopramide [Reglan] 10 mg PO TID PRN 14 Days #42 tab PRN Reason: Nausea Other Discharge Orders: Glucometer (Amb) Location: None Selected Glucometer supplies[Amb] Location: None Selected
[2021-02-24 15:05] LABS: Blood Urea Nitrogen 4 mg/dL (7-17); Calcium 8.5 mg/dL (8.4-10.2); Hemolysis Index 18
[2021-02-24 15:08] LABS: BUN/Creatinine Ratio 10
--- NOTE | 2021-02-24 16:34 | Ultrasound Report ---
US extremity nonvascular RT INDICATION / CLINICAL INFORMATION: R hand swelling. COMPARISON: None available. FINDINGS: Limited grayscale and color Doppler imaging within the right hand areas of concern. There is no evidence of mass or fluid collection. Mild soft tissue edema is noted. IMPRESSION: 1. Mild soft tissue edema within the right hand areas of concern. Otherwise, no significant abnormali ty. Scribed by: Sophia Kim RDMS, RVT Scribed: 02/24/2021 1:49 PM I have reviewed the images, agree with this report, and edited this report as needed. Signer Name: Demetrius Abraham MD Signed: 02/24/2021 4:30 PM Workstation Name: [id number]
--- NOTE | 2021-02-24 17:37 | Electrocardiograph Report ---
[facility] Test Date: 2021-02-24 Test Time: 07:38:50 Pat Name: KIMBERLI BURKS Department: Room: A476 1 Gender: F Pot Reliner: PARTH : 2000 Requested By: SARAH PURCELL Order Number: [id number] Reading MD: aMddy Smith Measurements Intervals [place] Rate: 80 P: 21 OR: 121 QRS: 79 QRSD: 77 T: 61 QT: 393 QTc: 452 Interpretive Statements Sinus rhythm No previous ECG available for comparison Electronically Signed On 02-24-2021 17:36:47 EST by Maddy Smith
== END 2021-02-24 16:15 | disposition home or self-care (01) | DRG 639 ==
LOC: ED 04:13 → CC1 09:16 → 4A 02-23 20:15
PROVIDERS: ADMIT Internal Medicine; ATTEND Student in an Organized Health Care Education/Training Program
DX: E11.10 Type 2 diabetes mellitus with ketoacidosis without coma (principal); E87.5 Hyperkalemia; E83.52 Hypercalcemia; E11.65 Type 2 diabetes mellitus with hyperglycemia
CPT/HCPCS: 36415; 80048; 80053; 81001; 82805; 82962; 83036; 83735; 84100; 84702; 85025; 87086; 93005; 99291; G0378; J3480; Q0162; Q9967; J1644; J1815; J2270; J2405; J2765; J7030

== ENCOUNTER 2021-06-05 06:57 | Inpatient (IN) | payer SELFPAY ==
[2021-06-05] MEDS ORDERED: INSULIN REGULAR, HUMAN 100 UNITS/1 ML IV ONE (08:33)
[2021-06-05] MEDS ORDERED: SODIUM CHLORIDE 0.9% 1000 ML 1,000 ML IV ONE ×5 (08:33→12:48)
[2021-06-05] MEDS ORDERED: ONDANSETRON 4 MG/2 ML INJ IV ONE (08:33)
[2021-06-05] MEDS ORDERED: FAMOTIDINE 20 MG/2 ML INJ IV ONE (08:33)
[2021-06-05] MEDS ORDERED: diphenhydrAMINE 50 MG/ML VIAL IV ONE (08:52)
[2021-06-05] MEDS ORDERED: METOCLOPRAMIDE 10 MG/2 ML INJ IV ONE (08:52)
[2021-06-05] MEDS ORDERED: MORPHINE 4 MG/1 ML INJ IV ONE (08:52)
--- NOTE | 2021-06-05 08:58 | Emergency Department Report ---
ED Abdominal Pain HPI - General Chief Complaint: Abdominal Pain Stated Complaint: ABD PAIN Time Seen by Provider: 06/05/21 08:27 Source: patient, EMS Mode of arrival: Stretcher Limitations: No Limitations - History of Present Illness Initial Comments: 20-year-old female with a past medical history of insulin-dependent diabetes, previous DKA, and gastroparesis presents to the hospital complaining about nausea, vomiting, p.o. intolerance and dry mouth. Patient went to [facility] yesterday with a similar symptoms. She was seen in the ER and after evaluation was told that she did not have DKA and was discharged home with antiemetics. Patient taken Reglan without improvement in symptoms. She now presents with dry mouth, tachycardia, and generalized abdominal pain, and generalized weakness. Glucose 388 upon ED arrival. Last dose of insulin was this morning. She denies previous abdominal surgeries. She is not currently taking a PPI. Severity scale (0 -10): 10 - Related Data Home Medications Medication Instructions Recorded Confirmed Last Taken Insulin NPH Hum/Reg Insulin Hm 35 unit SQ QDAY 06/05/21 06/05/21 Unknown [HumuLIN 70/30 Kwikpen] Previous Rx's Medication Instructions Recorded Last Taken Type Insulin Lispro [Humalog 100 5 units SQ TIDWM #5 ml 02/24/21 06/04/21 06:30 Rx UNITS/ML Kwikpen] Lancets/Blood Glucose Strips [Fora 1 each MC DAILY 30 Days #2 02/24/21 06/05/21 06:30 Rx [id number] Strp-Lnct] combo..pkg Metoclopramide [Reglan] 10 mg PO TID PRN 14 Days #42 tab 02/24/21 Unknown Rx Allergies Allergy/AdvReac Type Severity Reaction Status Date / Time No Known Allergies Allergy Verified 06/05/21 09:00 ED Review of Systems ROS: Stated complaint: ABD PAIN Other details as noted in HPI Comment: All other systems reviewed and negative ED Past Medical Hx - Past Medical History Hx Diabetes: Yes Hx Dementia: Yes Additional medical history: Gastroparesis - Social History Smoking Status: Unknown if ever smoked - Medications Home Medications: Home Medications Medication Instructions Recorded Confirmed Last Taken Type Insulin Lispro [Humalog 100 5 units SQ TIDWM #5 ml 02/24/21 06/04/21 06:30 Rx UNITS/ML Kwikpen] Lancets/Blood Glucose Strips [Fora 1 each MC DAILY 30 Days #2 02/24/21 06/05/21 06:30 Rx [id number] Strp-Lnct] combo..pkg Metoclopramide [Reglan] 10 mg PO TID PRN 14 Days #42 tab 02/24/21 Unknown Rx Insulin NPH Hum/Reg Insulin Hm 35 unit SQ QDAY 06/05/21 06/05/21 Unknown History [HumuLIN 70/30 Kwikpen] ED Physical Exam - General Limitations: No Limitations - Other Other exam information: General: No acute distress Head: Atraumatic Eyes: normal appearance ENT: Dry mucous membranes Neck: Normal appearance, no midline tenderness, no thyromegaly Chest: Clear to auscultation bilaterally CV: Tachycardic regular Abdomen: Soft, normal bowel sounds, generalized, nondistended, no rebound or guarding Back: Normal inspection Extremity: Normal inspection, full range of motion Neuro: Alert O x 3, no facial asymmetry, speech clear, no gross motor sensory deficit Psych: Appropriate behavior Skin: No rash ED Course Vital Signs 06/05/21 06/05/21 06/05/21 07:05 07:08 08:12 Temperature 97.9 F 98.3 F Pulse Rate 120 H 144 H Respiratory 16 28 H Rate Blood Pressure Blood Pressure 160/82 149/92 [Left] O2 Sat by Pulse 99 98 Oximetry 06/05/21 06/05/21 06/05/21 08:41 08:46 09:00 Temperature Pulse Rate 130 H Respiratory 23 Rate Blood Pressure 156/102 156/102 164/106 Blood Pressure [Left] O2 Sat by Pulse 99 100 99 Oximetry 06/05/21 06/05/21 06/05/21 09:02 09:16 09:30 Temperature Pulse Rate 137 H 137 H Respiratory 27 H 21 Rate Blood Pressure 164/106 159/93 Blood Pressure [Left] O2 Sat by Pulse 100 100 100 Oximetry 06/05/21 06/05/21 06/05/21 09:46 10:00 10:16 Temperature Pulse Rate 131 H 124 H 129 H Respiratory 26 H 25 H 25 H Rate Blood Pressure 159/93 169/98 169/98 Blood Pressure [Left] O2 Sat by Pulse 100 100 100 Oximetry 06/05/21 06/05/21 10:30 10:56 Temperature Pulse Rate 142 H 134 H Respiratory 25 H Rate Blood Pressure 168/98 168/98 Blood Pressure [Left] O2 Sat by Pulse 100 Oximetry - Reevaluation(s) Reevaluation #1: 06/05/21 12:16 Delay in initiating insulin drip due to pending potassium level acquired withdrawal. Once potassium was received insulin drip without bolus initiated. Patient received IV hydration while awaiting results ED Medical Decision Making - Lab Data Result diagrams: 06/05/21 09:33 06/05/21 11:09 Lab Results 06/05/21 06/05/21 06/05/21 Range/Units 09:33 09:33 09:33 WBC 13.7 H (4.5-11.0) K/mm3 RBC 5.46 H (3.65-5.03) M/mm3 Hgb 14.4 H (10.1-14.3) gm/dl Hct 48.7 H (30.3-42.9) % MCV 89 (79-97) fl MCH 26 L (28-32) pg MCHC 30 (30-34) % RDW 17.3 H (13.2-15.2) % Plt Count 292 (140-440) K/mm3 Lymph % (Auto) Triage Nurse Overton % (Auto) Triage Nurse Eos % (Auto) Triage Nurse Baso % (Auto) Triage Nurse Lymph # (Auto) Triage Nurse Overton # (Auto) Triage Nurse Eos # (Auto) Triage Nurse Baso # (Auto) Triage Nurse Seg Neutrophils % Triage Nurse Seg Neutrophils # Triage Nurse VBG pH (7.320-7.420) Sodium 134 L (137-145) mmol/L Potassium TNR Chloride 100.3 (98-107) mmol/L Carbon Dioxide TNR Anion Gap TNR BUN 13 (7-17) mg/dL Creatinine 1.0 (0.6-1.2) mg/dL Estimated GFR > 60 ml/min BUN/Creatinine Ratio 13 % Glucose 433 H (65-100) mg/dL Calcium 10.9 H (8.4-10.2) mg/dL Phosphorus (2.5-4.5) mg/dL Magnesium (1.7-2.3) mg/dL Total Bilirubin 0.20 (0.1-1.2) mg/dL AST TNR ALT TNR Alkaline Phosphatase TNR Total Protein 8.5 H (6.3-8.2) g/dL Albumin 5.2 H (3.9-5) g/dL Albumin/Globulin Ratio 1.6 % Lipase 22 (13-60) units/L HCG, Qual Negative (Negative) Urine Color (Yellow) Urine Turbidity (Clear) Urine pH (5.0-7.0) Ur Specific [place] (1.003-1.030) Urine Protein (Negative) mg/dL Urine Glucose (UA) (Negative) mg/dL Urine Ketones (Negative) mg/dL Urine Blood (Negative) Urine Nitrite (Negative) Urine Bilirubin (Negative) Urine Urobilinogen (<2.0) mg/dL Ur Leukocyte Esterase (Negative) Urine WBC (Auto) (0.0-6.0) /HPF Urine RBC (Auto) (0.0-6.0) /HPF U Epithel Cells (Auto) (0-13.0) /HPF Urine Mucus /HPF Urine Yeast (Budding) /HPF Urine Opiates Screen Urine Methadone Screen Ur Barbiturates Screen Ur Phencyclidine Scrn Ur Amphetamines Screen U Benzodiazepines Scrn Urine Cocaine Screen U Marijuana (THC) Screen Drugs of Abuse Note 06/05/21 06/05/21 06/05/21 Range/Units 09:33 09:33 11:09 WBC (4.5-11.0) K/mm3 RBC (3.65-5.03) M/mm3 Hgb (10.1-14.3) gm/dl Hct (30.3-42.9) % MCV (79-97) fl MCH (28-32) pg MCHC (30-34) % RDW (13.2-15.2) % Plt Count (140-440) K/mm3 Lymph % (Auto) Overton % (Auto) Eos % (Auto) Baso % (Auto) Lymph # (Auto) Overton # (Auto) Eos # (Auto) Baso # (Auto) Seg Neutrophils % Seg Neutrophils # VBG pH 7.096 L* (7.320-7.420) Sodium 139 (137-145) mmol/L Potassium 5.3 H Chloride 107.9 H (98-107) mmol/L Carbon Dioxide 4 L* Anion Gap 32 BUN 11 (7-17) mg/dL Creatinine 0.8 (0.6-1.2) mg/dL Estimated GFR > 60 ml/min BUN/Creatinine Ratio 14 % Glucose 409 H (65-100) mg/dL Calcium 9.2 D (8.4-10.2) mg/dL Phosphorus 4.60 H (2.5-4.5) mg/dL Magnesium 2.50 H (1.7-2.3) mg/dL Total Bilirubin < 0.20 (0.1-1.2) mg/dL AST 17 ALT 14 Alkaline Phosphatase 78 Total Protein 7.4 (6.3-8.2) g/dL Albumin 4.4 (3.9-5) g/dL Albumin/Globulin Ratio 1.5 % Lipase (13-60) units/L HCG, Qual (Negative) Urine Color (Yellow) Urine Turbidity (Clear) Urine pH (5.0-7.0) Ur Specific [place] (1.003-1.030) Urine Protein (Negative) mg/dL Urine Glucose (UA) (Negative) mg/dL Urine Ketones (Negative) mg/dL Urine Blood (Negative) Urine Nitrite (Negative) Urine Bilirubin (Negative) Urine Urobilinogen (<2.0) mg/dL Ur Leukocyte Esterase (Negative) Urine WBC (Auto) (0.0-6.0) /HPF Urine RBC (Auto) (0.0-6.0) /HPF U Epithel Cells (Auto) (0-13.0) /HPF Urine Mucus /HPF Urine Yeast (Budding) /HPF Urine Opiates Screen Urine Methadone Screen Ur Barbiturates Screen Ur Phencyclidine Scrn Ur Amphetamines Screen U Benzodiazepines Scrn Urine Cocaine Screen U Marijuana (THC) Screen Drugs of Abuse Note 06/05/21 06/05/21 Range/Units 11:10 11:10 WBC (4.5-11.0) K/mm3 RBC (3.65-5.03) M/mm3 Hgb (10.1-14.3) gm/dl Hct (30.3-42.9) % MCV (79-97) fl MCH (28-32) pg MCHC (30-34) % RDW (13.2-15.2) % Plt Count (140-440) K/mm3 Lymph % (Auto) Overton % (Auto) Eos % (Auto) Baso % (Auto) Lymph # (Auto) Overton # (Auto) Eos # (Auto) Baso # (Auto) Seg Neutrophils % Seg Neutrophils # VBG pH (7.320-7.420) Sodium (137-145) mmol/L Potassium Chloride (98-107) mmol/L Carbon Dioxide Anion Gap BUN (7-17) mg/dL Creatinine (0.6-1.2) mg/dL Estimated GFR ml/min BUN/Creatinine Ratio % Glucose (65-100) mg/dL Calcium (8.4-10.2) mg/dL Phosphorus (2.5-4.5) mg/dL Magnesium (1.7-2.3) mg/dL Total Bilirubin (0.1-1.2) mg/dL AST ALT Alkaline Phosphatase Total Protein (6.3-8.2) g/dL Albumin (3.9-5) g/dL Albumin/Globulin Ratio % Lipase (13-60) units/L HCG, Qual (Negative) Urine Color Colorless (Yellow) Urine Turbidity Clear (Clear) Urine pH 5.0 (5.0-7.0) Ur Specific [place] 1.028 (1.003-1.030) Urine Protein 30 mg/dl (Negative) mg/dL Urine Glucose (UA) >=500 (Negative) mg/dL Urine Ketones 80 (Negative) mg/dL Urine Blood Sm (Negative) Urine Nitrite Neg (Negative) Urine Bilirubin Neg (Negative) Urine Urobilinogen < 2.0 (<2.0) mg/dL Ur Leukocyte Esterase Mod (Negative) Urine WBC (Auto) 11.0 H (0.0-6.0) /HPF Urine RBC (Auto) 8.0 (0.0-6.0) /HPF U Epithel Cells (Auto) 2.0 (0-13.0) /HPF Urine Mucus Few /HPF Urine Yeast (Budding) 1+ /HPF Urine Opiates Screen Negative Urine Methadone Screen Negative Ur Barbiturates Screen Negative Ur Phencyclidine Scrn Negative Ur Amphetamines Screen Negative U Benzodiazepines Scrn Negative Urine Cocaine Screen Negative U Marijuana (THC) Screen Positive Drugs of Abuse Note Disclamer - EKG Data -: EKG Interpreted by Vt EKG shows normal: sinus rhythm, ST-T waves (NO STEMI) Rate: tachycardia (138) - Radiology Data Radiology results: report reviewed CT ABDOMEN AND PELVIS WITH IV CONTRAST, 06/05/2021 INDICATION: Abdominal pain, nausea and vomiting TECHNIQUE: Following the administration of intravenous contrast, multiple axial CT images of the abdomen and pelvis were acquired. Sagittal and coronal reformats were obtained. All CT performed at this facility utilize dose reduction techniques including automated exposure control, iterative reconstruction and weight based dosing when appropriate to reduce patient radiation dose to as low as reasonably achievable. COMPARISON: None FINDINGS: Lung bases: Limited imaging of the bilateral lung bases demonstrates no focal abnormality. ABDOMEN: LIVER/BILE DUCTS: No significant abnormality. GALL BLADDER: No significant abnormality. STOMACH: No significant abnormality. PANCREAS: No significant abnormality. SPLEEN: No significant abnormality. ADRENALS: No significant abnormality. RIGHT KIDNEY / URETER: No significant abnormality. LEFT KIDNEY / URETER: No significant abnormality. AORTA: The abdominal aorta is normal in caliber. SMALL AND LARGE BOWEL: Evaluation is somewhat limited due to the lack of intra- abdominal fat. Small and large bowel appear normal in caliber. There is no evidence of bowel obstruction. APPENDIX: The appendix is not definitively identified but no pericecal inflammatory changes are noted. PELVIS: There is marked distention of the urinary bladder. The uterus appears normal. No large amount of free pelvic fluid is identified. BONES AND SOFT TISSUES: No significant abnormality. IMPRESSION: 1. No evidence of acute inflammatory process within the abdomen or pelvis. 2. Marked distention of the urinary bladder. - Medical Decision Making 20YO FEMALE SX OF DKA + UTI CT ABD/PELVIS WITH DISTENDED BLADDER ONLY TX PER DKA PROTOCOL AND FOR N/V/PAIN NO SIGNS OF SEPSIS HOSPITALIST TO ADMIT CRITICAL CARE DOC CONSULT ORDERED - Differential Diagnosis DKA, gastroparesis, sepsis, intra-abdominal infection, pancreatitis, thyroi Critical Care Time: Yes Critical care time in (mins) excluding proc time.: 35 Critical care attestation.: If time is entered above; I have spent that time in minutes in the direct care of this critically ill patient, excluding procedure time. Critical Care Time: 35 Minutes of critical care time excluding procedures were used in the care of the patient. I came immediately to the bedside upon patient's arrival. \. I discussed treatment plan with the nursing team members. I reviewed electronic record. Patient required multiple interventions and reassessments. Spoke with hospitalist and consultants in order to expedite care. ED Disposition Clinical Impression: DKA (diabetic ketoacidosis), UTI (urinary tract infection), Gastroparesis Disposition: 09 ADMITTED INPATIENT Is pt being admited?: Yes Does the pt Need Aspirin: No Condition: Stable Instructions: Abdominal Pain (ED), Diabetic Ketoacidosis (ED) Time of Disposition: 12:11 (dR Daniels)
[2021-06-05 10:02] LABS: Hematocrit 48.7 % (30.3-42.9); Hemoglobin 14.4 gm/dl (10.1-14.3); Mean Corpuscular HGB Conc 30 % (30-34); Mean Corpuscular Volume 89 fl (79-97); Platelet Count 292 K/mm3 (140-440); Red Blood Count 5.46 M/mm3 (3.65-5.03); Red Cell Distribution Width 17.3 % (13.2-15.2)
[2021-06-05] MEDS ORDERED: DEXTROSE 50% IN WATER (25GM) 50 ML SYRINGE IV PRN (10:03)
[2021-06-05 10:23] LABS: Albumin 5.2 g/dL (3.9-5); BUN/Creatinine Ratio 13; Blood Urea Nitrogen 13 mg/dL (7-17); Calcium 10.9 mg/dL (8.4-10.2); Hemolysis Index 252
[2021-06-05] MEDS ORDERED: fentaNYL 100 MCG/2 ML INJ IV ONE (10:37)
[2021-06-05 10:38] LABS: Alanine Aminotransferase TNR units/L (7-56)
[2021-06-05] MEDS ORDERED: INSULIN REGULAR, HUMAN 100 UNITS in SODIUM CHLORIDE 0.9% 99 ML IV SCH (11:00)
[2021-06-05] MEDS ORDERED: D5W/0.45% NACL/KCL 20 MEQ 20 MEQ/1,000 ML BAG IV SCH ×2 (11:00→23:45)
[2021-06-05 11:23] LABS: Bilirubin,Urine NEG (Negative); Blood,Urine SM (Negative); Color,Urine Colorless (Yellow); Mucus,Urine FEW /HPF; Urobilinogen,Urine < 2.0 mg/dL (<2.0)
--- NOTE | 2021-06-05 11:29 | Cat Scan Report ---
CT ABDOMEN AND PELVIS WITH IV CONTRAST, 06/05/2021 INDICATION: Abdominal pain, nausea and vomiting TECHNIQUE: Following the administration of intravenous contrast, multiple axial CT images of the abdo men and pelvis were acquired. Sagittal and coronal reformats were obtained. All CT performed at this facility utilize dose reduction techniques including automated exposure control, iterative reconstru ction and weight based dosing when appropriate to reduce patient radiation dose to as low as reasonab ly achievable. COMPARISON: None FINDINGS: Lung bases: Limited imaging of the bilateral lung bases demonstrates no focal abnormality. ABDOMEN: LIVER/BILE DUCTS: No significant abnormality. GALL BLADDER: No significant abnormality. STOMACH: No significant abnormality. PANCREAS: No significant abnormality. SPLEEN: No significant abnormality. ADRENALS: No significant abnormality. RIGHT KIDNEY / URETER: No significant abnormality. LEFT KIDNEY / URETER: No significant abnormality. AORTA: The abdominal aorta is normal in caliber. SMALL AND LARGE BOWEL: Evaluation is somewhat limited due to the lack of intra-abdominal fat. Small a nd large bowel appear normal in caliber. There is no evidence of bowel obstruction. APPENDIX: The appendix is not definitively identified but no pericecal inflammatory changes are noted . PELVIS: There is marked distention of the urinary bladder. The uterus appears normal. No large amount of free pelvic fluid is identified. BONES AND SOFT TISSUES: No significant abnormality. IMPRESSION: 1. No evidence of acute inflammatory process within the abdomen or pelvis. 2. Marked distention of the urinary bladder. Signer Name: Valeria Castro MD Signed: 06/05/2021 11:24 AM Workstation Name: [id number]
[2021-06-05 11:30] LABS: Amphetamine Screen,Urine Negative; Benzodiazepines Screen,Urine Negative; Cocaine Screen,Urine Negative; Methadone Screen,Urine Negative; Opiate Screen,Urine Negative
[2021-06-05 11:56] LABS: Alanine Aminotransferase 14 units/L (7-56); Albumin 4.4 g/dL (3.9-5); BUN/Creatinine Ratio 14; Blood Urea Nitrogen 11 mg/dL (7-17); Calcium 9.2 mg/dL (8.4-10.2); Hemolysis Index 42
[2021-06-05 11:58] LABS: Cannabinoid Screen,Urine Positive
[2021-06-05] MEDS ORDERED: cefTRIAXone/NS 1 GM/50 ML 1 GM/50 ML BAG IV ONE (11:59)
[2021-06-05] MEDS: POTASSIUM CHLORIDE 10 MEQ 10 MEQ/100 ML BAG IV SCH ×8 (12:01→16:49)
--- NOTE | 2021-06-05 12:43 | History and Physical Report ---
History of Present Illness Chief complaint: I have been sick the past few days History of present illness: 20 YO Female with DM complicated by Gastroparesis, Medication Noncompliance presents to ED for evaluation. Patient reports "I have been sick the past 2 days". Patient states that she has experienced nausea, multiple episodes of vomiting, inability to tolerate oral intake, generalized weakness over the past 3 days with persistent and worsening symptoms over the same timeframe. Patient also reports abdominal cramping after multiple episodes of vomiting. EMS was notified and upon arrival the patient was found to be in distress and subsequently transported to [facility] for further care and evaluation of the afo rementioned symptoms. The patient was seen and evaluated in the emergency department. All lab and imaging studies reviewed. Patient found to have Kussmaul breathing secondary to diabetic ketoacidosis, volume depletion. Patient also found to have urinary tract infection complicated by sepsis. Brett torres admitted to ICU and initiated on DKA and sepsis protocols respectively. Patient denies fever, chills, chest pain, palpitation productive cough, skin rash, recent contact, known exposure to COVID-19. Prior admission on 02/22/2021 reviewed. All medication listed at time of admission has been reconciled. Advanced care planning conducted in ED. Past History Past Medical History: diabetes, other (See HPI) Past Surgical History: No surgical history, Other (Reviewed) Social history: single. denies: smoking, alcohol abuse, prescription drug abuse Family history: diabetes, hypertension Medications and Allergies Allergies Allergy/AdvReac Type Severity Reaction Status Date / Time No Known Allergies Allergy Verified 06/05/21 09:00 Home Medications Medication Instructions Recorded Confirmed Last Taken Type Insulin Lispro [Humalog 100 5 units SQ TIDWM #5 ml 02/24/21 06/04/21 06:30 Rx UNITS/ML Kwikpen] Lancets/Blood Glucose Strips [Fora 1 each MC DAILY 30 Days #2 02/24/21 06/05/21 06:30 Rx [id number] Strp-Lnct] combo..pkg Metoclopramide [Reglan] 10 mg PO TID PRN 14 Days #42 tab 02/24/21 Unknown Rx Insulin NPH Hum/Reg Insulin Hm 35 unit SQ QDAY 06/05/21 06/05/21 Unknown History [HumuLIN 70/30 Kwikpen] Active Meds: Active Medications Dextrose (Dextrose 50% In Water (25gm) 50 Ml Syringe) 0 ml IV Q30MIN PRN; Protocol PRN Reason: Hypoglycemia Insulin Human Regular 100 (units/ Sodium Chloride) 100 mls @ 1 mls/hr IV TITR DAVID; Protocol Last Admin: 06/05/21 12:14 Dose: 7 units/hr, 7 mls/hr Potassium Chloride/Dextrose/Sod Cl (D5w/0.45% Nacl/Kcl 20 Meq) 20 meq in 1,000 mls @ 125 mls/hr IV DIRECT DAVID Potassium Chloride (Kcl 10meq/100ml) 10 meq in 100 mls @ 100 mls/hr IV Q1H DAVID Stop: 06/05/21 14:59 Last Admin: 06/05/21 12:01 Dose: Not Given Potassium Chloride (Kcl 10meq/100ml) 10 meq in 100 mls @ 100 mls/hr IV Q1H DAVID Stop: 06/05/21 16:59 Last Admin: 06/05/21 12:01 Dose: Not Given Sodium Chloride (Nacl 0.9% 1000 Ml) 1,000 mls @ 999 mls/hr IV BOLUS ONE Stop: 06/05/21 13:01 Review of Systems Constitutional: no weight loss, no weight gain, no fever, no chills Ears, nose, mouth and throat: no ear pain, no nasal discharge Breasts: no change in shape, no swelling Cardiovascular: no chest pain, no orthopnea, no palpitations, no rapid/irregular heart beat, no edema Respiratory: no cough, no excessive sputum, no shortness of breath Gastrointestinal: abdominal pain, nausea, vomiting, no constipation, no change in bowel habits, no hematemesis, no coffee ground emesis, no BRBPR, no melena, no hematochezia, no loss of appetite, no early satiety Genitourinary Female: no pelvic pain, no flank pain, no dysuria, no urinary frequency, no urgency, no stress incontinence Rectal: no pain, no incontinence, no bleeding Musculoskeletal: no neck stiffness, no low back pain, no shooting leg pain, no leg numbness/tingling Integumentary: no rash, no pruritis, no redness, no sores, no wounds Neurological: no head injury, no transient paralysis, no weakness, no parathesias, no numbness, no seizures, no tremors Psychiatric: no anxiety, no memory loss, no sleep disturbances, no hypersomnia, no change in appetite, no suicidal ideation Endocrine: polyphagia, excessive thirst, polydipsia, polyuria, nocturia, high blood sugars Hematologic/Lymphatic: no easy bruising, no easy bleeding Allergic/Immunologic: no urticaria, no allergic rhinitis, no wheezing Exam - Constitutional Vitals: Temp Pulse Resp BP Pulse Ox 98.3 F 135 H 23 131/71 98 06/05/21 08:12 06/05/21 12:30 06/05/21 12:30 06/05/21 12:30 06/05/21 12:30 General appearance: Present: severe distress - EENT Eyes: Present: PERRL ENT: hearing intact, clear oral mucosa, other (Oral mucosa dry) - Neck Neck: Present: supple, normal ROM - Respiratory Respiratory effort: labored Respiratory: bilateral: CTA - Cardiovascular Rhythm: other (Tachycardia) Heart Sounds: Present: S1 & S2. Absent: rub, click - Extremities Extremities: pulses symmetrical, No edema Peripheral Pulses: abnormal (Capillary refill greater than 3.5 seconds) - Abdominal General gastrointestinal: Present: soft, non-tender, non-distended, normal bowel sounds Female genitourinary: Present: normal - Integumentary Integumentary: Present: warm, dry, clammy, decreased turgor - Musculoskeletal Musculoskeletal: generalized weakness - Psychiatric Psychiatric: appropriate mood/affect, intact judgment & insight - Neurologic Neurologic: CNII-XII intact, moves all extremities Results - Labs CBC & Chem 7: 06/05/21 09:33 06/05/21 11:09 Labs: Abnormal lab results 06/05/21 06/05/21 06/05/21 Range/Units 09:33 09:33 09:33 WBC 13.7 H (4.5-11.0) K/mm3 RBC 5.46 H (3.65-5.03) M/mm3 Hgb 14.4 H (10.1-14.3) gm/dl Hct 48.7 H (30.3-42.9) % MCH 26 L (28-32) pg RDW 17.3 H (13.2-15.2) % VBG pH 7.096 L* (7.320-7.420) Sodium 134 L (137-145) mmol/L Potassium (3.6-5.0) mmol/L Chloride (98-107) mmol/L Carbon Dioxide (22-30) mmol/L Glucose 433 H (65-100) mg/dL Calcium 10.9 H (8.4-10.2) mg/dL Phosphorus (2.5-4.5) mg/dL Magnesium (1.7-2.3) mg/dL Total Protein 8.5 H (6.3-8.2) g/dL Albumin 5.2 H (3.9-5) g/dL Urine WBC (Auto) (0.0-6.0) /HPF 06/05/21 06/05/21 06/05/21 Range/Units 09:33 11:09 11:10 WBC (4.5-11.0) K/mm3 RBC (3.65-5.03) M/mm3 Hgb (10.1-14.3) gm/dl Hct (30.3-42.9) % MCH (28-32) pg RDW (13.2-15.2) % VBG pH (7.320-7.420) Sodium (137-145) mmol/L Potassium 5.3 H (3.6-5.0) mmol/L Chloride 107.9 H (98-107) mmol/L Carbon Dioxide 4 L* (22-30) mmol/L Glucose 409 H (65-100) mg/dL Calcium (8.4-10.2) mg/dL Phosphorus 4.60 H (2.5-4.5) mg/dL Magnesium 2.50 H (1.7-2.3) mg/dL Total Protein (6.3-8.2) g/dL Albumin (3.9-5) g/dL Urine WBC (Auto) 11.0 H (0.0-6.0) /HPF Assessment and Plan - Patient Problems (1) Sepsis Current Visit: Yes Status: Acute Plan to address problem: Sepsis protocol: IV fluid resuscitation therapy, IV antibiotic therapy, serial lactic acid level, maintain mean arterial pressure greater than or equal to 65, chest x-ray, urinalysis, serial lactic acid level The high probability of a clinically significant, sudden or life threatening deterioration of the [neuro, renal, endocrine] system(s) required my full and direct attention, intervention and personal management. The aggregate critical care time was [95] minutes. This time is in addition to time spent performing reported procedures but includes the following: [x] Data Review and interpretation [x] Patient assessment and monitoring of vital signs [x] Documentation [x] Medication orders and management (2) DKA (diabetic ketoacidosis) Current Visit: Yes Status: Acute Plan to address problem: DKA protocol: IV fluid resuscitation therapy, insulin drip, serial BMP, monitor anion gap, IV bicarbonate therapy, monitor serum potassium, potassium repletion as per protocol (3) Noncompliance Current Visit: Yes Status: Acute Plan to address problem: Patient counseled. Patient acknowledges understanding instructions. (4) Gastroparesis Current Visit: Yes Status: Acute Plan to address problem: IV fluid resuscitation therapy, frequent small meals, antiemetic therapy. (5) UTI (urinary tract infection) Current Visit: Yes Status: Acute Qualifiers: Encounter type: initial encounter Plan to address problem: CBC, IV antibiotic therapy, supportive care, urinalysis (6) Volume depletion Current Visit: Yes Status: Acute Plan to address problem: IV fluid resuscitation therapy, monitor fluid balance, monitor urine output every shift. (7) DVT prophylaxis Current Visit: Yes Status: Acute Plan to address problem: SCD to bilateral lower extremities while in bed (8) Advance care planning Current Visit: Yes Status: Acute Plan to address problem: Disease education conducted, care plan discussed, diagnoses discussed, prognosis discussed, patient is full code. Patient acknowledges understanding and agreement with care plan. Patient informed of the seriousness of her diagnoses. Patient declined central line placement. Patient reports "this aint my first rodeo". Patient has poor peripheral access and requires large-volume fluid and medication administration. Patient informed of risk of worsening symptoms. Patient acknowledges noncompliance with medication and carbohydrate counting. +30 minutes.
[2021-06-05] MEDS ORDERED: SODIUM CHLORIDE 0.9% 1000 ML IV SOLN IV ONE (12:44)
[2021-06-05] MEDS ORDERED: ACETAMINOPHEN 325 MG TAB PO PRN (12:44)
[2021-06-05] MEDS ORDERED: ALBUTEROL 2.5 MG/3 ML NEBU IH PRN (12:44)
[2021-06-05] MEDS ORDERED: HYDROmorphone 1 MG/1 ML INJ IV PRN (12:44)
[2021-06-05] MEDS ORDERED: oxyCODONE /ACETAMINOPHEN 5-325MG TAB PO PRN (12:44)
[2021-06-05] MEDS ORDERED: SODIUM CHLORIDE 0.9% 1000 ML 2,000 ML IV ONE (12:48)
[2021-06-05] MEDS ORDERED: SODIUM BICARB 8.4% 50 MEQ/50 ML SYRINGE IV ONE ×2 (12:48→17:00)
[2021-06-05] MEDS: cefTRIAXone/NS 1 GM/50 ML 1 GM/50 ML BAG IV SCH (13:06)
[2021-06-05] MEDS: INSULIN REGULAR, HUMAN 100 UNITS in SODIUM CHLORIDE 0.9% 99 ML IV SCH (13:15)
[2021-06-05 14:34] LABS: BUN/Creatinine Ratio 13; Blood Urea Nitrogen 10 mg/dL (7-17); Calcium 8.7 mg/dL (8.4-10.2); Hemolysis Index 36
[2021-06-05] MEDS: D5W/0.45% NACL 1,000 ML IV SCH ×2 (15:59→23:10)
[2021-06-05] MEDS ORDERED: LACTATED RINGERS 1,000 ML IV ONE ×2 (16:30→18:00)
[2021-06-05] MEDS: ONDANSETRON 4 MG/2 ML INJ IV PRN (19:18)
[2021-06-05 23:14] LABS: Blood Urea Nitrogen 5 mg/dL (7-17); Calcium 8.6 mg/dL (8.4-10.2); Hemolysis Index 11
[2021-06-05 23:15] LABS: BUN/Creatinine Ratio 10
[2021-06-06] MEDS: ONDANSETRON 4 MG/2 ML INJ IV PRN ×2 (00:36→20:15)
[2021-06-06] MEDS: HYDROmorphone 1 MG/1 ML INJ IV PRN ×5 (00:36→20:11)
[2021-06-06 05:35] LABS: Blood Urea Nitrogen 4 mg/dL (7-17); Calcium 8.5 mg/dL (8.4-10.2); Hemolysis Index 334
[2021-06-06 05:38] LABS: BUN/Creatinine Ratio 8
[2021-06-06] MEDS: D5W/0.45% NACL 1,000 ML IV SCH ×3 (06:09→22:37)
[2021-06-06 08:06] LABS: Basophils % (Auto) 0.1 % (0.0-1.8); Hematocrit 39.3 % (30.3-42.9); Hemoglobin 12.4 gm/dl (10.1-14.3); Lymphocytes # (Auto) 1.1 K/mm3 (1.2-5.4); Lymphocytes % (Auto) 13.4 % (13.4-35.0); Mean Corpuscular HGB Conc 32 % (30-34); Mean Corpuscular Volume 84 fl (79-97); Monocytes # (Auto) 0.6 K/mm3 (0.0-0.8); Monocytes % (Auto) 7.7 % (0.0-7.3); Platelet Count 246 K/mm3 (140-440); Red Blood Count 4.67 M/mm3 (3.65-5.03); Red Cell Distribution Width 16.9 % (13.2-15.2)
[2021-06-06] MEDS ORDERED: SODIUM CHLORIDE 0.9% 1000 ML 1,000 ML IV ONE ×3 (08:14→15:57)
[2021-06-06] MEDS: FAMOTIDINE 20 MG/2 ML INJ IV SCH (09:35)
--- NOTE | 2021-06-06 10:18 | Progress Note ---
<KEYLA ORO - Last Filed: 06/06/21 16:01> Assessment and Plan Assessment and plan: This is a 20-year-old female with known past medical history of type 1 DM, gastroparesis, and medication noncompliance admitted for DKA Hospital Course to Date: 06/06: Remains on DKA protoccol. Anion gap is still 20 this am. Aditional IVF boluses administered. Patient still unable to tolerate PO intake due to nausea, PRN reglan added for N/V. Patient also is also complaining of abdominal pain, CT ABD/Pelvis is unremarkable, PRN analgesia for pain management. Continue insulin gtt and IVF hydration until gap is closed. Monitor and replace electrolytes as needed, serial labs ordered. Thorough discussion with patient at the bedside. Plan of care was discussed and the importance of medications compliance and associated risks of uncontrolled diabetes was also emphasized. Patient acknowledges understanding and agreement with care plan. Assessment and Plan #DKA (Diabetic Ketoacidosis) #Uncontrolled Type 1 DM #Medication Noncompliance - Presented with high BG, Kussmaul breathing, UA + ketones, and metabolic acidosis - HgbA1c is 16 - DKA protocol was initiated - Patient anion gap is still 20 this am - Additonal IVF boluses administered - Continue insulin gtt and IVF hydration per DKA protocol - Monitor and replace electrolytes as needed - Monitor anion gap - Serial labs ordered #Abdominal Pain #Nausea and Vomiting #H/o Gastroparesis - Most likely due to DKA - 06/05 CT Abd/Pelvis with no evidence of acute inflammatory process within the abdomen or pelvis. - Patient stil nauseous this am, unable to tolerate PO intake - Keep patient NPO for now - Continue IV fluid resuscitation therapy - Continue PRN antiemetic, Reglan added - Continue PRN analgesia for pain management #UTI (Urinary Tract Infection) #Leukocytosis - UA with elevated WBCs - Patient remains afebrile, WBCs wnr - Blood cultures and urine culture in process - Patient on IV Abx- [id number] - continue to F/U on cultures data #Hyponatremia #Hypokalemia #Volume Depletion - Due to hypovolemia/Dehydration - Additional IVF boluses administered - Continue IV fluid resuscitation therapy - Strict intake and output - Monitor and replace electrolytes as needed - Serial BMP ordered #GI/DVT Prophylaxis - PPI- Pepcid - SCD to bilateral lower extremities while in bed #Advance Care Planning - Patient acknowledges noncompliance with medication and carbohydrate counting. - Disease education conducted, care plan discussed, diagnoses discussed, and importance of medications compliance was also discussed. Patient acknowledges understanding and agreement with care plan. Patient informed of the seriousness of her diagnoses. The high probability of a clinically significant, sudden or life threatening deterioration of the [multiple] system(s) required my full and direct attention, intervention and personal management. The aggregate critical care time was [60] minutes. This time is in addition to time spent performing reported procedures but includes the following: [x] Data Review and interpretation [x] Patient assessment and monitoring of vital signs [x] Documentation [x] Medication orders and management Disposition Plan: ICU Total Time Spent with Patient (Minutes): 60 History Interval history: Patient seen and examined at the bedside. Fully AAO, on RA, still c/o of nausea no vomiting anf badominal pain which control with current PRN analgesia. On insulin gtt and IVF hydration per DKA protocol Hospitalist Physical - Constitutional Vitals: Temp Pulse Resp BP Pulse Ox 97.8 F 84 21 142/88 99 06/06/21 08:00 06/06/21 09:01 06/06/21 09:01 06/06/21 09:01 06/06/21 09:01 General appearance: Present: no acute distress, cachectic - EENT Eyes: Present: PERRL, EOM intact ENT: hearing intact - Neck Neck: Present: normal ROM - Respiratory Respiratory effort: normal Respiratory: bilateral: CTA - Cardiovascular Rhythm: regular Heart Sounds: Present: S1 & S2 - Extremities Extremities: no ischemia, pulses intact, pulses symmetrical Peripheral Pulses: within normal limits - Abdominal General gastrointestinal: soft, non-distended, normal bowel sounds - Integumentary Integumentary: Present: clear, warm, dry - Psychiatric Psychiatric: appropriate mood/affect, cooperative - Neurologic Neurologic: CNII-XII intact, moves all extremities - Allied Health Allied health notes reviewed: nursing Results - Labs CBC & Chem 7: 06/06/21 07:40 06/06/21 04:55 Labs: Laboratory Last Values WBC 8.3 K/mm3 (4.5-11.0) 06/06/21 07:40 RBC 4.67 M/mm3 (3.65-5.03) 06/06/21 07:40 Hgb 12.4 gm/dl (10.1-14.3) 06/06/21 07:40 Hct 39.3 % (30.3-42.9) D 06/06/21 07:40 MCV 84 fl (79-97) 06/06/21 07:40 MCH 27 pg (28-32) L 06/06/21 07:40 MCHC 32 % (30-34) 06/06/21 07:40 RDW 16.9 % (13.2-15.2) H 06/06/21 07:40 Plt Count 246 K/mm3 (140-440) 06/06/21 07:40 Lymph % (Auto) 13.4 % (13.4-35.0) 06/06/21 07:40 Woodson % (Auto) 7.7 % (0.0-7.3) H 06/06/21 07:40 Eos % (Auto) 0.0 % (0.0-4.3) 06/06/21 07:40 Baso % (Auto) 0.1 % (0.0-1.8) 06/06/21 07:40 Lymph # (Auto) 1.1 K/mm3 (1.2-5.4) L 06/06/21 07:40 Woodson # (Auto) 0.6 K/mm3 (0.0-0.8) 06/06/21 07:40 Eos # (Auto) 0.0 K/mm3 (0.0-0.4) 06/06/21 07:40 Baso # (Auto) 0.0 K/mm3 (0.0-0.1) 06/06/21 07:40 Seg Neutrophils % 78.8 % (40.0-70.0) H 06/06/21 07:40 Seg Neutrophils # 6.6 K/mm3 (1.8-7.7) 06/06/21 07:40 VBG pH 7.096 (7.320-7.420) L* 06/05/21 09:33 Sodium 136 mmol/L (137-145) L 06/06/21 04:55 Potassium 5.1 mmol/L (3.6-5.0) H D 06/06/21 04:55 Chloride 106.0 mmol/L (98-107) 06/06/21 04:55 Carbon Dioxide 15 mmol/L (22-30) L 06/06/21 04:55 Anion Gap 20 mmol/L 06/06/21 04:55 BUN 4 mg/dL (7-17) L 06/06/21 04:55 Creatinine 0.5 mg/dL (0.6-1.2) L 06/06/21 04:55 Estimated GFR > 60 ml/min 06/06/21 04:55 BUN/Creatinine Ratio 8 % 06/06/21 04:55 Glucose 162 mg/dL (65-100) H 06/06/21 04:55 POC Glucose 160 mg/dL (70-105) H 06/06/21 06:54 Hemoglobin A1c 16.0 % (4-6) H 06/06/21 07:40 Lactic Acid 0.70 mmol/L (0.7-2.0) 06/05/21 22:21 Calcium 8.5 mg/dL (8.4-10.2) 06/06/21 04:55 Phosphorus 4.60 mg/dL (2.5-4.5) H 06/05/21 11:09 Magnesium 2.50 mg/dL (1.7-2.3) H 06/05/21 09:33 Total Bilirubin < 0.20 mg/dL (0.1-1.2) 06/05/21 11:09 AST 17 units/L (5-40) 06/05/21 11:09 ALT 14 units/L (7-56) 06/05/21 11:09 Alkaline Phosphatase 78 units/L (35-129) 06/05/21 11:09 Total Protein 7.4 g/dL (6.3-8.2) 06/05/21 11:09 Albumin 4.4 g/dL (3.9-5) 06/05/21 11:09 Albumin/Globulin Ratio 1.5 % 06/05/21 11:09 Lipase 22 units/L (13-60) 06/05/21 09:33 HCG, Qual Negative (Negative) 06/05/21 09:33 Urine Color Colorless (Yellow) 06/05/21 11:10 Urine Turbidity Clear (Clear) 06/05/21 11:10 Urine pH 5.0 (5.0-7.0) 06/05/21 11:10 Ur Specific Sultan 1.028 (1.003-1.030) 06/05/21 11:10 Urine Protein 30 mg/dl mg/dL (Negative) 06/05/21 11:10 Urine Glucose (UA) >=500 mg/dL (Negative) 06/05/21 11:10 Urine Ketones 80 mg/dL (Negative) 06/05/21 11:10 Urine Blood Sm (Negative) 06/05/21 11:10 Urine Nitrite Neg (Negative) 06/05/21 11:10 Urine Bilirubin Neg (Negative) 06/05/21 11:10 Urine Urobilinogen < 2.0 mg/dL (<2.0) 06/05/21 11:10 Ur Leukocyte Esterase Mod (Negative) 06/05/21 11:10 Urine WBC (Auto) 11.0 /HPF (0.0-6.0) H 06/05/21 11:10 Urine RBC (Auto) 8.0 /HPF (0.0-6.0) 06/05/21 11:10 U Epithel Cells (Auto) 2.0 /HPF (0-13.0) 06/05/21 11:10 Urine Mucus Few /HPF 06/05/21 11:10 Urine Yeast (Budding) 1+ /HPF 06/05/21 11:10 Urine Opiates Screen Negative 06/05/21 11:10 Urine Methadone Screen Negative 06/05/21 11:10 Ur Barbiturates Screen Negative 06/05/21 11:10 Ur Phencyclidine Scrn Negative 06/05/21 11:10 Ur Amphetamines Screen Negative 06/05/21 11:10 U Benzodiazepines Scrn Negative 06/05/21 11:10 Urine Cocaine Screen Negative 06/05/21 11:10 U Marijuana (THC) Screen Positive 06/05/21 11:10 Drugs of Abuse Note Disclamer 06/05/21 11:10 Blood Type O POSITIVE 06/05/21 14:08 Antibody Screen Negative 06/05/21 14:08 Microbiology: Microbiology 06/05/21 10:03 Peripheral/Venous Blood Culture - Preliminary Culture in Progress 06/05/21 10:03 Peripheral/Venous Blood Culture - Preliminary Culture in Progress Brice/IV: Voiding Method Bedside Commode Active Medications - Current Medications Current Medications: Generic Name Dose Route Start Last Admin Trade Name Freq PRN Reason Stop Dose Admin Acetaminophen 650 mg 06/05/21 12:44 Acetaminophen 325 Mg Tab PO Q6H PRN Pain MILD(1-3)/Fever >100.5/HATCH Albuterol 2.5 mg 06/05/21 12:44 Albuterol 2.5 Mg/3 Ml Nebu IH Q3HRT PRN Shortness Of Breath Dextrose 0 ml 06/05/21 10:03 Dextrose 50% In Water (25gm) 50 Ml Syringe IV Q30MIN PRN Hypoglycemia Protocol Famotidine 20 mg 06/06/21 10:00 06/06/21 09:35 Famotidine 20 Mg/2 Ml Inj IV 20 mg QDAY DAVID Administration Hydromorphone HCl 0.5 mg 06/06/21 00:27 06/06/21 07:04 Hydromorphone 1 Mg/1 Ml Inj IV 0.5 mg Q4H PRN Administration Pain , Severe (7-10) Insulin Human Regular 100 100 mls @ 1 mls/hr 06/05/21 13:00 06/06/21 10:13 units/ Sodium Chloride IV 3 units/hr TITR DAVID 3 mls/hr Titration Protocol 1 UNITS/HR Ceftriaxone Sodium 1 gm in 50 mls @ 100 mls/hr 06/05/21 13:00 06/05/21 13:06 Rocephin/Ns 1 Gm/50 Ml IV 06/07/21 13:29 Not Given Q24H DAVID Protocol Dextrose/Sodium Chloride 1,000 mls @ 125 mls/hr 06/06/21 06:00 06/06/21 06:09 D5/0.45ns IV 125 mls/hr DIRECT DAVID Administration Sodium Chloride 1,000 mls @ 999 mls/hr 06/06/21 10:30 06/06/21 10:18 Nacl 0.9% 1000 Ml IV 06/06/21 11:30 999 mls/hr BOLUS ONE Administration Ondansetron HCl 4 mg 06/05/21 19:11 06/06/21 00:36 Ondansetron 4 Mg/2 Ml Inj IV 4 mg Q8H PRN Administration Nausea And Vomiting Oxycodone/Acetaminophen 1 tab 06/05/21 12:44 Oxycodone /Acetaminophen 5-325mg Tab PO Q16H PRN Pain, Moderate (4-6) Sodium Chloride 10 ml 06/05/21 22:00 06/06/21 09:35 Sodium Chloride 0.9% 10 Ml Flush Syringe IV Not Given BID DAVID Sodium Chloride 10 ml 06/05/21 12:44 Sodium Chloride 0.9% 10 Ml Flush Syringe IV PRN PRN LINE FLUSH <[id number] HELTON - Last Filed: 06/07/21 13:28> Assessment and Plan Assessment and plan: I saw and evaluated the patient. Discussed with the nurse practitioner and agree with their findings and plan as documented in this note. Hospitalist Physical - Constitutional Vitals: Temp Pulse Resp BP Pulse Ox 98.7 F 106 H 17 139/99 77 L 06/07/21 12:00 06/07/21 12:01 06/07/21 12:01 06/07/21 12:01 06/07/21 12:01 Results - Labs CBC & Chem 7: 06/07/21 04:27 06/07/21 04:27 Labs: Laboratory Last Values WBC 6.7 K/mm3 (4.5-11.0) 06/07/21 04:27 RBC 4.59 M/mm3 (3.65-5.03) 06/07/21 04:27 Hgb 12.1 gm/dl (10.1-14.3) 06/07/21 04:27 Hct 37.6 % (30.3-42.9) 06/07/21 04:27 MCV 82 fl (79-97) 06/07/21 04:27 MCH 26 pg (28-32) L 06/07/21 04:27 MCHC 32 % (30-34) 06/07/21 04:27 RDW 17.3 % (13.2-15.2) H 06/07/21 04:27 Plt Count 238 K/mm3 (140-440) 06/07/21 04:27 Lymph % (Auto) 13.4 % (13.4-35.0) 06/06/21 07:40 Woodson % (Auto) 7.7 % (0.0-7.3) H 06/06/21 07:40 Eos % (Auto) 0.0 % (0.0-4.3) 06/06/21 07:40 Baso % (Auto) 0.1 % (0.0-1.8) 06/06/21 07:40 Lymph # (Auto) 1.1 K/mm3 (1.2-5.4) L 06/06/21 07:40 Woodson # (Auto) 0.6 K/mm3 (0.0-0.8) 06/06/21 07:40 Eos # (Auto) 0.0 K/mm3 (0.0-0.4) 06/06/21 07:40 Baso # (Auto) 0.0 K/mm3 (0.0-0.1) 06/06/21 07:40 Seg Neutrophils % 78.8 % (40.0-70.0) H 06/06/21 07:40 Seg Neutrophils # 6.6 K/mm3 (1.8-7.7) 06/06/21 07:40 VBG pH 7.096 (7.320-7.420) L* 06/05/21 09:33 Sodium 135 mmol/L (137-145) L 06/07/21 04:27 Potassium 2.8 mmol/L (3.6-5.0) L* 06/07/21 04:27 Chloride 101.6 mmol/L (98-107) 06/07/21 04:27 Carbon Dioxide 22 mmol/L (22-30) 06/07/21 04:27 Anion Gap 14 mmol/L 06/07/21 04:27 BUN 2 mg/dL (7-17) L 06/07/21 04:27 Creatinine 0.4 mg/dL (0.6-1.2) L 06/07/21 04:27 Estimated GFR > 60 ml/min 06/07/21 04:27 BUN/Creatinine Ratio 5 % 06/07/21 04:27 Glucose 144 mg/dL (65-100) H 06/07/21 04:27 POC Glucose 144 mg/dL (70-105) H 06/07/21 08:56 Hemoglobin A1c 16.0 % (4-6) H 06/06/21 07:40 Lactic Acid 0.70 mmol/L (0.7-2.0) 06/05/21 22:21 Calcium 7.9 mg/dL (8.4-10.2) L 06/07/21 04:27 Phosphorus 1.90 mg/dL (2.5-4.5) L D 06/07/21 04:27 Magnesium 1.90 mg/dL (1.7-2.3) 06/07/21 04:27 Total Bilirubin < 0.20 mg/dL (0.1-1.2) 06/05/21 11:09 AST 17 units/L (5-40) 06/05/21 11:09 ALT 14 units/L (7-56) 06/05/21 11:09 Alkaline Phosphatase 78 units/L (35-129) 06/05/21 11:09 Total Protein 7.4 g/dL (6.3-8.2) 06/05/21 11:09 Albumin 4.4 g/dL (3.9-5) 06/05/21 11:09 Albumin/Globulin Ratio 1.5 % 06/05/21 11:09 Lipase 22 units/L (13-60) 06/05/21 09:33 TSH 0.622 mlU/mL (0.270-4.200) 06/06/21 Unknown Free T4 1.19 ng/dL (0.76-1.46) 06/06/21 Unknown HCG, Qual Negative (Negative) 06/05/21 09:33 Urine Color Colorless (Yellow) 06/05/21 11:10 Urine Turbidity Clear (Clear) 06/05/21 11:10 Urine pH 5.0 (5.0-7.0) 06/05/21 11:10 Ur Specific Sultan 1.028 (1.003-1.030) 06/05/21 11:10 Urine Protein 30 mg/dl mg/dL (Negative) 06/05/21 11:10 Urine Glucose (UA) >=500 mg/dL (Negative) 06/05/21 11:10 Urine Ketones 80 mg/dL (Negative) 06/05/21 11:10 Urine Blood Sm (Negative) 06/05/21 11:10 Urine Nitrite Neg (Negative) 06/05/21 11:10 Urine Bilirubin Neg (Negative) 06/05/21 11:10 Urine Urobilinogen < 2.0 mg/dL (<2.0) 06/05/21 11:10 Ur Leukocyte Esterase Mod (Negative) 06/05/21 11:10 Urine WBC (Auto) 11.0 /HPF (0.0-6.0) H 06/05/21 11:10 Urine RBC (Auto) 8.0 /HPF (0.0-6.0) 06/05/21 11:10 U Epithel Cells (Auto) 2.0 /HPF (0-13.0) 06/05/21 11:10 Urine Mucus Few /HPF 06/05/21 11:10 Urine Yeast (Budding) 1+ /HPF 06/05/21 11:10 Urine Opiates Screen Negative 06/05/21 11:10 Urine Methadone Screen Negative 06/05/21 11:10 Ur Barbiturates Screen Negative 06/05/21 11:10 Ur Phencyclidine Scrn Negative 06/05/21 11:10 Ur Amphetamines Screen Negative 06/05/21 11:10 U Benzodiazepines Scrn Negative 06/05/21 11:10 Urine Cocaine Screen Negative 06/05/21 11:10 U Marijuana (THC) Screen Positive 06/05/21 11:10 Drugs of Abuse Note Disclamer 06/05/21 11:10 Blood Type O POSITIVE 06/05/21 14:08 Antibody Screen Negative 06/05/21 14:08 Microbiology: Microbiology 06/05/21 10:03 Peripheral/Venous Blood Culture - Preliminary NO GROWTH AFTER 24 HOURS 06/05/21 10:03 Peripheral/Venous Blood Culture - Preliminary NO GROWTH AFTER 24 HOURS 06/05/21 11:10 Urine,Clean Catch Urine Culture - Preliminary Brice/IV: Voiding Method Bedside Commode Active Medications - Current Medications Current Medications: Generic Name Dose Route Start Last Admin Trade Name Freq PRN Reason Stop Dose Admin Acetaminophen 650 mg 06/05/21 12:44 Acetaminophen 325 Mg Tab PO Q6H PRN Pain MILD(1-3)/Fever >100.5/HATCH Albuterol 2.5 mg 06/05/21 12:44 Albuterol 2.5 Mg/3 Ml Nebu IH Q3HRT PRN Shortness Of Breath Dextrose 50 ml 06/07/21 09:00 Dextrose 50% In Water (25gm) 50 Ml Syringe IV Q30MIN PRN Hypoglycemia Protocol Hydromorphone HCl 0.5 mg 06/06/21 00:27 06/07/21 08:14 Hydromorphone 1 Mg/1 Ml Inj IV 0.5 mg Q4H PRN Administration Pain , Severe (7-10) Ceftriaxone Sodium 1 gm in 50 mls @ 100 mls/hr 06/05/21 13:00 06/06/21 12:34 Rocephin/Ns 1 Gm/50 Ml IV 06/07/21 13:29 100 mls/hr Q24H DAVID Administration Protocol Potassium Phosphate 45 mmol/ 515 mls @ 85 mls/hr 06/07/21 09:00 06/07/21 08:1 9 Sodium Chloride IV 06/07/21 15:03 85 mls/hr ONCE ONE Administration Insulin Human Isoph/Insulin Regular 25 unit 06/07/21 09:30 06/07/21 09:12 Insulin Nph/Regular 70/30 Inj SUB-Q 25 unit BIDDIAB DAVID Administration Insulin Human Lispro 0 unit 06/07/21 09:00 06/07/21 12:27 Insulin Lispro 100 Unit/Ml SUB-Q Not Given ACHS [facility] Protocol Metoclopramide HCl 5 mg 06/06/21 10:18 06/07/21 03:04 Metoclopramide 10 Mg/2 Ml Inj IV 5 mg Q6H PRN Administration Nausea And Vomiting Ondansetron HCl 4 mg 06/05/21 19:11 06/06/21 20:15 Ondansetron 4 Mg/2 Ml Inj IV 4 mg Q8H PRN Administration Nausea And Vomiting Oxycodone/Acetaminophen 1 tab 06/05/21 12:44 Oxycodone /Acetaminophen 5-325mg Tab PO Q16H PRN Pain, Moderate (4-6) Sodium Chloride 10 ml 06/05/21 22:00 06/07/21 10:33 Sodium Chloride 0.9% 10 Ml Flush Syringe IV 10 ml BID DAVID Administration Sodium Chloride 10 ml 06/05/21 12:44 Sodium Chloride 0.9% 10 Ml Flush Syringe IV PRN PRN LINE FLUSH Nutrition/Malnutrition Assess - Dietary Evaluation Nutrition/Malnutrition Findings: Nutrition Notes Start: 06/06/21 11:56 Freq: Status: Active Protocol: Document 06/07/21 13:09 VIKTOR (Rec: 06/07/21 13:13 [email or web address] [id number]) Nutrition Notes Initial or Follow up Brief Note Current Diet Consistent CHO Subjective/Other Information Pt reports that she's hungry at time of visit this am. She denies need for diet education; dx with DM at age of 12. Pt familiar with food sources of CHO and recommended A1C. She says she has not been taking insulin as prescribed. She says she has been busy with work and forgets to take medication. She reports family hx of DM; her mother had a kidney transplant sec to renal failure. Pt encouraged to take better care of herself and start taking insulin regularly and adhere to CHO- controlled diet in order to better control BS. #1 Nutrition Diagnosis Inadequate oral intake As Evidenced by Signs and Symptoms pt tolerating PO intake Diagnosis Progress(for reassessment Resolved documentation) Nutrition Intervention Revisit per MD consult or patient Sign Off request:
[2021-06-06] MEDS: METOCLOPRAMIDE 10 MG/2 ML INJ IV PRN ×2 (10:26→15:56)
[2021-06-06] MEDS: cefTRIAXone/NS 1 GM/50 ML 1 GM/50 ML BAG IV SCH (12:34)
[2021-06-06] MEDS: INSULIN REGULAR, HUMAN 100 UNITS in SODIUM CHLORIDE 0.9% 99 ML IV SCH (12:39)
--- NOTE | 2021-06-06 14:59 | Consultation ---
History of Present Illness Consult date: 06/06/21 Requesting physician: CHRISTOPH BALL Reason for consult: other (DKA) History of present illness: PULMONARY/CCM CONSULT NOTE (Full dictation # [id number]) Please see dictated notes for full details Past History Past Medical History: diabetes, other (See HPI) Past Surgical History: No surgical history, Other (Reviewed) Social history: single. denies: smoking, alcohol abuse, prescription drug abuse Family history: diabetes, hypertension Medications and Allergies Allergies Allergy/AdvReac Type Severity Reaction Status Date / Time No Known Allergies Allergy Verified 06/05/21 09:00 Home Medications Medication Instructions Recorded Confirmed Last Taken Type RX: Insulin Lispro [Humalog 100 5 units SQ TIDWM #5 ml 02/24/21 06/06/21 06/04/21 06:30 Rx UNITS/ML Kwikpen] Insulin NPH Hum/Reg Insulin Hm 35 unit SQ QDAY 06/05/21 06/05/21 Unknown History [HumuLIN 70/30 Kwikpen] Insulin Detemir [Levemir Flextouch] 35 unit SQ BID 06/06/21 06/06/21 Unknown History Active Meds: Active Medications Acetaminophen (Acetaminophen 325 Mg Tab) 650 mg PO Q6H PRN PRN Reason: Pain MILD(1-3)/Fever >100.5/HATCH Albuterol (Albuterol 2.5 Mg/3 Ml Nebu) 2.5 mg IH Q3HRT PRN PRN Reason: Shortness Of Breath Dextrose (Dextrose 50% In Water (25gm) 50 Ml Syringe) 0 ml IV Q30MIN PRN; Protocol PRN Reason: Hypoglycemia Famotidine (Famotidine 20 Mg/2 Ml Inj) 20 mg IV QDAY DAVID Last Admin: 06/06/21 09:35 Dose: 20 mg Hydromorphone HCl (Hydromorphone 1 Mg/1 Ml Inj) 0.5 mg IV Q4H PRN PRN Reason: Pain , Severe (7-10) Last Admin: 06/06/21 10:35 Dose: 0.5 mg Insulin Human Regular 100 (units/ Sodium Chloride) 100 mls @ 1 mls/hr IV TITR DAVID; Protocol Last Titration: 06/06/21 13:19 Dose: 3 units/hr, 3 mls/hr Ceftriaxone Sodium (Rocephin/Ns 1 Gm/50 Ml) 1 gm in 50 mls @ 100 mls/hr IV Q24H DAVID; Protocol Stop: 06/07/21 13:29 Last Admin: 06/06/21 12:34 Dose: 100 mls/hr Dextrose/Sodium Chloride (D5/0.45ns) 1,000 mls @ 125 mls/hr IV DIRECT DAVID Last Admin: 06/06/21 13:21 Dose: 125 mls/hr Metoclopramide HCl (Metoclopramide 10 Mg/2 Ml Inj) 5 mg IV Q6H PRN PRN Reason: Nausea And Vomiting Last Admin: 06/06/21 10:26 Dose: 5 mg Ondansetron HCl (Ondansetron 4 Mg/2 Ml Inj) 4 mg IV Q8H PRN PRN Reason: Nausea And Vomiting Last Admin: 06/06/21 00:36 Dose: 4 mg Oxycodone/Acetaminophen (Oxycodone /Acetaminophen 5-325mg Tab) 1 tab PO Q16H P RN PRN Reason: Pain, Moderate (4-6) Sodium Chloride (Sodium Chloride 0.9% 10 Ml Flush Syringe) 10 ml IV BID DAVID Last Admin: 06/06/21 09:35 Dose: Not Given Sodium Chloride (Sodium Chloride 0.9% 10 Ml Flush Syringe) 10 ml IV PRN PRN PRN Reason: LINE FLUSH Physical Examination Vital signs: Vital Signs Pulse Resp BP Pulse Ox 120 H 16 160/82 99 06/05/21 07:05 06/05/21 07:05 06/05/21 07:05 06/05/21 07:05 Results - Laboratory Findings CBC and BMP: 06/06/21 07:40 06/06/21 14:50 Abnormal lab findings: Abnormal Labs 06/05/21 06/05/21 06/05/21 09:33 09:33 09:33 WBC 13.7 H RBC 5.46 H Hgb 14.4 H Hct 48.7 H MCH 26 L RDW 17.3 H Humphreys % (Auto) Lymph # (Auto) Seg Neutrophils % VBG pH 7.096 L* Sodium 134 L Potassium Chloride Carbon Dioxide BUN Creatinine Glucose 433 H POC Glucose Hemoglobin A1c Calcium 10.9 H Phosphorus Magnesium Total Protein 8.5 H Albumin 5.2 H Urine WBC (Auto) 06/05/21 06/05/21 06/05/21 09:33 11:09 11:10 WBC RBC Hgb Hct MCH RDW Humphreys % (Auto) Lymph # (Auto) Seg Neutrophils % VBG pH Sodium Potassium 5.3 H Chloride 107.9 H Carbon Dioxide 4 L* BUN Creatinine Glucose 409 H POC Glucose Hemoglobin A1c Calcium Phosphorus 4.60 H Magnesium 2.50 H Total Protein Albumin Urine WBC (Auto) 11.0 H 06/05/21 06/05/21 06/05/21 13:11 14:08 14:16 WBC RBC Hgb Hct MCH RDW Humphreys % (Auto) Lymph # (Auto) Seg Neutrophils % VBG pH Sodium Potassium 5.7 H Chloride 113.7 H Carbon Dioxide 6 L* BUN Creatinine Glucose 234 H POC Glucose 305 H 209 H Hemoglobin A1c Calcium Phosphorus Magnesium Total Protein Albumin Urine WBC (Auto) 06/05/21 06/05/21 06/05/21 15:17 15:50 17:05 WBC RBC Hgb Hct MCH RDW Humphreys % (Auto) Lymph # (Auto) Seg Neutrophils % VBG pH Sodium Potassium Chloride Carbon Dioxide BUN Creatinine Glucose POC Glucose 181 H 164 H 198 H Hemoglobin A1c Calcium Phosphorus Magnesium Total Protein Albumin Urine WBC (Auto) 06/05/21 06/05/21 06/05/21 18:13 18:47 20:00 WBC RBC Hgb Hct MCH RDW Humphreys % (Auto) Lymph # (Auto) Seg Neutrophils % VBG pH Sodium Potassium Chloride Carbon Dioxide BUN Creatinine Glucose POC Glucose 183 H 191 H 159 H Hemoglobin A1c Calcium Phosphorus Magnesium Total Protein Albumin Urine WBC (Auto) 06/05/21 06/05/21 06/05/21 20:58 22:08 22:21 WBC RBC Hgb Hct MCH RDW Humphreys % (Auto) Lymph # (Auto) Seg Neutrophils % VBG pH Sodium Potassium 3.4 L D Chloride 111.8 H Carbon Dioxide 13 L D BUN 5 L Creatinine 0.5 L Glucose 178 H POC Glucose 149 H 167 H Hemoglobin A1c Calcium Phosphorus Magnesium Total Protein Albumin Urine WBC (Auto) 06/05/21 06/06/21 06/06/21 23:01 00:05 01:07 WBC RBC Hgb Hct MCH RDW Humphreys % (Auto) Lymph # (Auto) Seg Neutrophils % VBG pH Sodium Potassium Chloride Carbon Dioxide BUN Creatinine Glucose POC Glucose 143 H 166 H 177 H Hemoglobin A1c Calcium Phosphorus Magnesium Total Protein Albumin Urine WBC (Auto) 06/06/21 06/06/21 06/06/21 02:05 03:01 04:11 WBC RBC Hgb Hct MCH RDW Humphreys % (Auto) Lymph # (Auto) Seg Neutrophils % VBG pH Sodium Potassium Chloride Carbon Dioxide BUN Creatinine Glucose POC Glucose 162 H 143 H 155 H Hemoglobin A1c Calcium Phosphorus Magnesium Total Protein Albumin Urine WBC (Auto) 06/06/21 06/06/21 06/06/21 04:55 05:09 06:03 WBC RBC Hgb Hct MCH RDW Humph[place] % (Auto) Lymph # (Auto) Seg Neutrophils % VBG pH Sodium 136 L Potassium 5.1 H D Chloride Carbon Dioxide 15 L BUN 4 L Creatinine 0.5 L Glucose 162 H POC Glucose 149 H 163 H Hemoglobin A1c Calcium Phosphorus Magnesium Total Protein Albumin Urine WBC (Auto) 06/06/21 06/06/21 06/06/21 06:54 07:40 07:40 WBC RBC Hgb Hct MCH 27 L RDW 16.9 H Humphreys % (Auto) 7.7 H Lymph # (Auto) 1.1 L Seg Neutrophils % 78.8 H VBG pH Sodium Potassium Chloride Carbon Dioxide BUN Creatinine Glucose POC Glucose 160 H Hemoglobin A1c 16.0 H Calcium Phosphorus Magnesium Total Protein Albumin Urine WBC (Auto) 06/06/21 06/06/21 06/06/21 07:59 08:53 10:12 WBC RBC Hgb Hct MCH RDW Humph[place] % (Auto) Lymph # (Auto) Seg Neutrophils % VBG pH Sodium Potassium Chloride Carbon Dioxide BUN Creatinine Glucose POC Glucose 170 H 157 H 164 H Hemoglobin A1c Calcium Phosphorus Magnesium Total Protein Albumin Urine WBC (Auto) 06/06/21 06/06/21 11:05 12:31 WBC RBC Hgb Hct MCH RDW Humph[place] % (Auto) Lymph # (Auto) Seg Neutrophils % VBG pH Sodium Potassium Chloride Carbon Dioxide BUN Creatinine Glucose POC Glucose 154 H 144 H Hemoglobin A1c Calcium Phosphorus Magnesium Total Protein Albumin Urine WBC (Auto)
--- NOTE | 2021-06-06 15:05 | Electrocardiograph Report ---
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
[2021-06-06 15:44] LABS: Blood Urea Nitrogen 3 mg/dL (7-17); Calcium 8.3 mg/dL (8.4-10.2); Hemolysis Index 18
[2021-06-06 15:47] LABS: BUN/Creatinine Ratio 8
[2021-06-06] MEDS: POTASSIUM CHLORIDE 10 MEQ 10 MEQ/100 ML BAG IV SCH ×4 (16:06→19:32)
[2021-06-06 16:15] LABS: Free T4 (Free Thyroxine) 1.19 ng/dL (0.76-1.46)
[2021-06-06] MEDS ORDERED: POTASSIUM PHOSPHATE 30 MMOL in SODIUM CHLORIDE 0.9% 500 ML 500 ML IV ONE (18:00)
[2021-06-06] MEDS ORDERED: MAGNESIUM SULFATE 4 GM/100 ML BAG IV ONE (21:00)
--- NOTE | 2021-06-06 22:10 | Consultation ---
DATE OF CONSULTATION: 06/06/2021 PULMONARY CRITICAL CARE NOTE CONSULTING PHYSICIAN: Dr. Ng. REASON FOR CONSULTATION: Diabetic ketoacidosis. CHIEF COMPLAINT AND HISTORY OF PRESENT ILLNESS: The patient is a 20-year-old female with past medical history significant for diabetes, complicated by gastroparesis and medication noncompliance that presumably may be due to her inability to afford medications, came into the Emergency Room complaining of being sick for about a couple of days. She complained of multiple episodes of nausea and vomiting. She has been getting weaker. She had apparently been to another hospital in the area prior to coming to our facility where she was told that she was not in DKA and was discharged home. I think this was like a couple of days or so before presentation. In the Emergency Room, she was clinically with Kussmaul respirations. She was diagnosed with diabetic ketoacidosis. She was volume depleted. She was diagnosed with a urinary tract infection and was diagnosed also with sepsis. She was admitted to the ICU on the DKA and sepsis protocol. We are asked to assist with management. When I stopped by to see her, she remains on IV insulin at 3 units per hour. She is feeling better otherwise, not vomiting, but still feels nauseous intermittently. She denies any chest pain. She denies palpitations. She denies tobacco use or abuse whatsoever. This really is as much of the history of presentation as I have. I should mention she also denies any open wounds or sores on her body or boils. PAST MEDICAL HISTORY: Diabetes. PAST SURGICAL HISTORY: Denies. MEDICATIONS: She was on at the time I stopped by to see her according to the medication physician record included the following: Tylenol 650 mg p.o. q. 6 hours p.r.n. mild pain or fevers; Rocephin 1 g IV daily; Pepcid 20 mg IV daily; Dilaudid 0.5 mg IV q. 4 hours p.r.n. severe pain; magnesium sulfate, she is receiving 4 grams IV replacement; Reglan 5 mg IV q. 6 hours p.r.n. nausea and vomiting; Zofran 4 mg IV q. 8 hours p.r.n. nausea and vomiting; Percocet 5/325 one tablet p.o. q. 16 hours p.r.n. moderate pain and also received some potassium phosphate replacement 30 millimoles. ALLERGIES: No known drug allergies. DIET: Well-built lady, denies acute weight loss or gain in the preceding few weeks to months. SOCIAL HISTORY: Lives in the community. Denies alcohol, tobacco or illicit drug use or abuse. FAMILY HISTORY: Otherwise significant for diabetes and hypertension. REVIEW OF SYSTEMS: No loss of consciousness. No new onset seizures. No new onset focal weakness. Denies gross hematochezia or melena. Denies gross hematuria or dysuria. No hematemesis, no hemoptysis. She has had multiple bouts of emesis, though. Denies heat or cold intolerance. Complete 13-system review of system was obtained. Pertinent positives and/or negatives as in body of history above, otherwise they are noncontributory. PHYSICAL EXAMINATION: VITAL SIGNS: At presentation in the Emergency Room and since really she has been afebrile, temperature was 97.9 degrees Fahrenheit, pulse of 120, respiratory rate of 28, blood pressure 160/82. O2 sats were 99%, inspired oxygen concentration at that time was not recorded. When I stopped by to see her, she was on room air. GENERAL: She is a young female. Normocephalic, atraumatic, lying in bed with mildly increased respiratory effort at rest. HEAD, EYES, EARS, NOSE AND THROAT: Anicteric. No conjunctival erythema. Oropharynx was dry. NECK: No gross jugular venous distention, no thyromegaly. Grossly, there were no palpable lymph nodes in the supraclavicular or submandibular lymph node chains. LUNGS: Auscultation of both lung mcneal unremarkable. Good bilateral air movement. No wheezing. HEART: Sounds 1 and 2 are heard at the time of my evaluation. Regular rate and rhythm without overt rubs or murmurs. ABDOMEN: Soft, full, bowel sounds are positive, but hypoactive. Mildly tender diffusely. No palpable hepatosplenomegaly. EXTREMITIES: Without overt digital clubbing or cyanosis, no pedal edema. Pedal pulses are 2+ bilaterally. NEUROLOGIC: Pupils are equal, round, about 4 mm, reactive to light. Extraocular muscle movements are intact. She moves all 4 extremities spontaneously. SKIN: Normal turgor without overt cellulitis or rash in the areas that I examined. Please see the wound care nurses' notes for full description of her skin. PSYCHIATRIC: Mood was depressed. Affect was flat. She did have intact judgment and insight. LABORATORY DATA: From my review are as follows: Admission white cell count was 13,700, hemoglobin 14.4, hematocrit 48.7, platelet count is 292. Venous blood gas showed a pH of 7.10. Serum sodium was 139, potassium 5.3, chloride 108, bicarbonate 4, BUN 11, creatinine 0.8, glucose 409. Lactic acid level within normal limits. Liver function tests within normal limits. Lipase within normal limits. Urine test was negative. Urinalysis showed moderate leukocyte esterase with 11 white cells per high power field. Urine drug screen was presumptive positive for marijuana. Two sets of blood cultures, no growth to date. Urine culture preliminary report pending. CT of the abdomen and pelvis was done. I have reviewed the lung windows, they are clear and the full report is no evidence of acute inflammatory process within the abdomen. There was marked distention of the urinary bladder. ASSESSMENT: 1. Diabetic ketoacidosis. 2. Severe metabolic acidosis. 3. Gastroparesis. 4. Leukocytosis. 5. Hemoconcentration. PLAN: Continue volume resuscitation. Continue DKA protocol. Follow electrolytes, replace as necessary. We will stop the IV insulin once her gap has closed and keep her on a sliding scale with long-acting formulation. We will continue the antiemetics as tolerated. Continued tobacco abstinence has been counseled. She is appropriately on GI prophylaxis, DVT prophylaxis with SCDs. Flu and pneumonia vaccination will be addressed per protocol. Thank you very much for the consult. We will follow along with further recommendations as picture progresses/becomes clearer. TID: [id number] RECEIPT: [id number] AJM/EKT
[2021-06-07 00:39] LABS: Blood Urea Nitrogen 2 mg/dL (7-17); Calcium 7.8 mg/dL (8.4-10.2); Hemolysis Index 17
[2021-06-07 00:42] LABS: BUN/Creatinine Ratio 5
[2021-06-07] MEDS: D5W/0.45% NACL/KCL 20 MEQ 20 MEQ/1,000 ML BAG IV SCH ×2 (02:04→10:40)
[2021-06-07] MEDS: METOCLOPRAMIDE 10 MG/2 ML INJ IV PRN (03:04)
[2021-06-07] MEDS: HYDROmorphone 1 MG/1 ML INJ IV PRN ×2 (03:07→08:14)
[2021-06-07 05:06] LABS: Hematocrit 37.6 % (30.3-42.9); Hemoglobin 12.1 gm/dl (10.1-14.3); Mean Corpuscular HGB Conc 32 % (30-34); Mean Corpuscular Volume 82 fl (79-97); Platelet Count 238 K/mm3 (140-440); Red Blood Count 4.59 M/mm3 (3.65-5.03); Red Cell Distribution Width 17.3 % (13.2-15.2)
[2021-06-07 05:10] LABS: Blood Urea Nitrogen 2 mg/dL (7-17); Calcium 7.9 mg/dL (8.4-10.2); Hemolysis Index 2
[2021-06-07 05:17] LABS: BUN/Creatinine Ratio 5
[2021-06-07] MEDS: POTASSIUM CHLORIDE 10 MEQ 10 MEQ/100 ML BAG IV SCH ×4 (06:13→09:26)
[2021-06-07] MEDS ORDERED: POTASSIUM PHOSPHATE 45 MMOL in SODIUM CHLORIDE 0.9% 500 ML 500 ML IV ONE (09:00)
[2021-06-07] MEDS ORDERED: DEXTROSE 50% IN WATER (25GM) 50 ML SYRINGE IV PRN (09:00)
[2021-06-07] MEDS: INSULIN LISPRO 100 UNIT/ML SUB-Q SCH ×2 (09:26→12:27)
[2021-06-07] MEDS ORDERED: INSULIN NPH/REGULAR 70/30 INJ SUB-Q SCH (09:30)
[2021-06-07] MEDS: FAMOTIDINE 20 MG/2 ML INJ IV SCH (10:33)
[2021-06-07] MEDS ORDERED: POTASSIUM CHLORIDE ER 20 MEQ TAB PO ONE (12:00)
[2021-06-07 12:22] VITALS: BP 139/99
[2021-06-07] MEDS ORDERED: DOCUSATE SODIUM 100 MG CAP PO SCH (14:00)
--- NOTE | 2021-06-07 14:03 | Progress Note ---
Assessment and Plan Assessment and plan: This is a 20-year-old female with type I DM, gastroparesis and medical noncompliance admitted with DKA and UTI, sepsis Neuro: h/o medical noncompliance -Avoid delirium -Reorientation as needed -Maintain sleep-wake cycle -As needed analgesia -Stress medical complience Cardiac: NAD -Blood pressure monitoring per protocol Respiratory: NAD -Currently on room air -SPO2 monitor per protocol -Supplemental oxygen as needed -Pulmonary hygiene GI: Intractable abdominal pain (resolved) , h/o gastroparesis -24 hours -143 -PPI -CC diet -BR: colace : Hypokalemia, hyponatremia, hypophosphatemia -Replete potassium aggressively -KCl IV 40 mEq, p.o. 40 mEq -1400 potassium -Replete with K-Phos 45 mmol -P.m. BMP -Trend BMP, phos, mag ID: Sepsis (POA), UTI -Meets criteria with tachycardia, leukocytosis and urinary tract infection on UA -Infectious disease consulted, appreciate recommendation -Antibiotic therapy with Rocephin x 3 days -f/u blood culture -Monitor WBC and temperature curve Endo: s/p DKA, uncontrolled type 1 diabetes mellitus -Avoid hypoglycemia -SSI -Accu-Cheks ACHS -Long-acting insulin, titrate as needed -Hemoglobin A1c 16 Heme: Leukocytosis (resolved) -Trend CBC -Transfuse hemoglobin less than 7 -Monitor for signs of bleeding -SCDs to BLE while in bed -Lovenox subq The high probability of a clinically significant, sudden or life threatening deterioration of the [endo] system(s) required my full and direct attention, intervention and personal management. The aggregate critical care time was [60] minutes. This time is in addition to time spent performing reported procedures but includes the following: [x] Data Review and interpretation [x] Patient assessment and monitoring of vital signs [x] Documentation [x] Medication orders and management Disposition Plan: transfer to floor Total Time Spent with Patient (Minutes): 60 History Interval history: This is a 20-year-old female with type I DM, gastroparesis and noncompliance presents to the hospital on 06/05 with complaints of being sick over the past 2 days, nausea, multiple episodes of vomiting, inability to tolerate p.o. intake, generalized weakness for the past 3 days with abdominal cramps on 4/2 via EMS. In the emergency department patient was noted to have Kussmaul respirations and lab work was consistent with DKA, UTI and sepsis. Patient was admitted to the hospital service to the ICU with critical care consult DKA and UTI. Hospital Course to Date: 06/06: Remains on DKA protoccol. Anion gap is still 20 this am. Aditional IVF boluses administered. Patient still unable to tolerate PO intake due to nausea, PRN reglan added for N/V. Patient also is also complaining of abdominal pain, CT ABD/Pelvis is unremarkable, PRN analgesia for pain management. Continue insulin gtt and IVF hydration until gap is closed. Monitor and replace electrolytes as needed, serial labs ordered. Thorough discussion with patient at the bedside. Plan of care was discussed and the importance of medications compliance and associated risks of uncontrolled diabetes was also emphasized. Patient acknowledges understanding and agreement with care plan. 06/07: Anion gap closed, transition to SSI and long-acting insulin. Started on a p.o. diet and was able to tolerate. Transferred to the floor. Hospitalist Physical - Constitutional Vitals: Temp Pulse Resp BP Pulse Ox 98.7 F 106 H 17 139/99 77 L 06/07/21 12:00 06/07/21 12:01 06/07/21 12:01 06/07/21 12:01 06/07/21 12:01 General appearance: Present: no acute distress, cachectic - EENT Eyes: Present: PERRL, EOM intact ENT: hearing intact, clear oral mucosa, dentition normal - Neck Neck: Present: normal ROM - Respiratory Respiratory effort: normal Respiratory: bilateral: CTA - Cardiovascular Rhythm: regular Heart Sounds: Present: S1 & S2. Absent: systolic murmur, diastolic murmur - Extremities Extremities: no ischemia, pulses intact, pulses symmetrical, No edema, normal temperature, normal color, Full ROM Peripheral Pulses: within normal limits - Abdominal General gastrointestinal: soft, non-tender, non-distended, normal bowel sounds - Integumentary Integumentary: Present: warm, dry - Psychiatric Psychiatric: cooperative - Neurologic Neurologic: CNII-XII intact, no focal deficits, moves all extremities - Allied Health Allied health notes reviewed: nursing, RT, social work Results - Labs CBC & Chem 7: 06/07/21 04:27 06/07/21 04:27 Labs: Laboratory Last Values WBC 6.7 K/mm3 (4.5-11.0) 06/07/21 04:27 RBC 4.59 M/mm3 (3.65-5.03) 06/07/21 04:27 Hgb 12.1 gm/dl (10.1-14.3) 06/07/21 04:27 Hct 37.6 % (30.3-42.9) 06/07/21 04:27 MCV 82 fl (79-97) 06/07/21 04:27 MCH 26 pg (28-32) L 06/07/21 04:27 MCHC 32 % (30-34) 06/07/21 04:27 RDW 17.3 % (13.2-15.2) H 06/07/21 04:27 Plt Count 238 K/mm3 (140-440) 06/07/21 04:27 Lymph % (Auto) 13.4 % (13.4-35.0) 06/06/21 07:40 [place] % (Auto) 7.7 % (0.0-7.3) H 06/06/21 07:40 Eos % (Auto) 0.0 % (0.0-4.3) 06/06/21 07:40 Baso % (Auto) 0.1 % (0.0-1.8) 06/06/21 07:40 Lymph # (Auto) 1.1 K/mm3 (1.2-5.4) L 06/06/21 07:40 [place] # (Auto) 0.6 K/mm3 (0.0-0.8) 06/06/21 07:40 Eos # (Auto) 0.0 K/mm3 (0.0-0.4) 06/06/21 07:40 Baso # (Auto) 0.0 K/mm3 (0.0-0.1) 06/06/21 07:40 Seg Neutrophils % 78.8 % (40.0-70.0) H 06/06/21 07:40 Seg Neutrophils # 6.6 K/mm3 (1.8-7.7) 06/06/21 07:40 VBG pH 7.096 (7.320-7.420) L* 06/05/21 09:33 Sodium 135 mmol/L (137-145) L 06/07/21 04:27 Potassium 2.8 mmol/L (3.6-5.0) L* 06/07/21 04:27 Chloride 101.6 mmol/L (98-107) 06/07/21 04:27 Carbon Dioxide 22 mmol/L (22-30) 06/07/21 04:27 Anion Gap 14 mmol/L 06/07/21 04:27 BUN 2 mg/dL (7-17) L 06/07/21 04:27 Creatinine 0.4 mg/dL (0.6-1.2) L 06/07/21 04:27 Estimated GFR > 60 ml/min 06/07/21 04:27 BUN/Creatinine Ratio 5 % 06/07/21 04:27 Glucose 144 mg/dL (65-100) H 06/07/21 04:27 POC Glucose 144 mg/dL (70-105) H 06/07/21 08:56 Hemoglobin A1c 16.0 % (4-6) H 06/06/21 07:40 Lactic Acid 0.70 mmol/L (0.7-2.0) 06/05/21 22:21 Calcium 7.9 mg/dL (8.4-10.2) L 06/07/21 04:27 Phosphorus 1.90 mg/dL (2.5-4.5) L D 06/07/21 04:27 Magnesium 1.90 mg/dL (1.7-2.3) 06/07/21 04:27 Total Bilirubin < 0.20 mg/dL (0.1-1.2) 06/05/21 11:09 AST 17 units/L (5-40) 06/05/21 11:09 ALT 14 units/L (7-56) 06/05/21 11:09 Alkaline Phosphatase 78 units/L (35-129) 06/05/21 11:09 Total Protein 7.4 g/dL (6.3-8.2) 06/05/21 11:09 Albumin 4.4 g/dL (3.9-5) 06/05/21 11:09 Albumin/Globulin Ratio 1.5 % 06/05/21 11:09 Lipase 22 units/L (13-60) 06/05/21 09:33 TSH 0.622 mlU/mL (0.270-4.200) 06/06/21 Unknown Free T4 1.19 ng/dL (0.76-1.46) 06/06/21 Unknown HCG, Qual Negative (Negative) 06/05/21 09:33 Urine Color Colorless (Yellow) 06/05/21 11:10 Urine Turbidity Clear (Clear) 06/05/21 11:10 Urine pH 5.0 (5.0-7.0) 06/05/21 11:10 Ur Specific [place] 1.028 (1.003-1.030) 06/05/21 11:10 Urine Protein 30 mg/dl mg/dL (Negative) 06/05/21 11:10 Urine Glucose (UA) >=500 mg/dL (Negative) 06/05/21 11:10 Urine Ketones 80 mg/dL (Negative) 06/05/21 11:10 Urine Blood Sm (Negative) 06/05/21 11:10 Urine Nitrite Neg (Negative) 06/05/21 11:10 Urine Bilirubin Neg (Negative) 06/05/21 11:10 Urine Urobilinogen < 2.0 mg/dL (<2.0) 06/05/21 11:10 Ur Leukocyte Esterase Mod (Negative) 06/05/21 11:10 Urine WBC (Auto) 11.0 /HPF (0.0-6.0) H 06/05/21 11:10 Urine RBC (Auto) 8.0 /HPF (0.0-6.0) 06/05/21 11:10 U Epithel Cells (Auto) 2.0 /HPF (0-13.0) 06/05/21 11:10 Urine Mucus Few /HPF 06/05/21 11:10 Urine Yeast (Budding) 1+ /HPF 06/05/21 11:10 Urine Opiates Screen Negative 06/05/21 11:10 Urine Methadone Screen Negative 06/05/21 11:10 Ur Barbiturates Screen Negative 06/05/21 11:10 Ur Phencyclidine Scrn Negative 06/05/21 11:10 Ur Amphetamines Screen Negative 06/05/21 11:10 U Benzodiazepines Scrn Negative 06/05/21 11:10 Urine Cocaine Screen Negative 06/05/21 11:10 U Marijuana (THC) Screen Positive 06/05/21 11:10 Drugs of Abuse Note Disclamer 06/05/21 11:10 Blood Type O POSITIVE 06/05/21 14:08 Antibody Screen Negative 06/05/21 14:08 Microbiology: Microbiology 06/05/21 11:10 Urine,Clean Catch Urine Culture - Final 06/05/21 10:03 Peripheral/Venous Blood Culture - Preliminary NO GROWTH AFTER 24 HOURS 06/05/21 10:03 Peripheral/Venous Blood Culture - Preliminary NO GROWTH AFTER 24 HOURS Brice/IV: Voiding Method Bedside Commode Active Medications - Current Medications Current Medications: Generic Name Dose Route Start Last Admin Trade Name Freq PRN Reason Stop Dose Admin Acetaminophen 650 mg 06/05/21 12:44 Acetaminophen 325 Mg Tab PO Q6H PRN Pain MILD(1-3)/Fever >100.5/HATCH Albuterol 2.5 mg 06/05/21 12:44 Albuterol 2.5 Mg/3 Ml Nebu IH Q3HRT PRN Shortness Of Breath Dextrose 50 ml 06/07/21 09:00 Dextrose 50% In Water (25gm) 50 Ml Syringe IV Q30MIN PRN Hypoglycemia Protocol Docusate Sodium 100 mg 06/07/21 22:00 Docusate Sodium 100 Mg Cap PO BID [facility] Hydromorphone HCl 0.5 mg 06/06/21 00:27 06/07/21 08:14 Hydromorphone 1 Mg/1 Ml Inj IV 0.5 mg Q4H PRN Administration Pain , Severe (7-10) Potassium Phosphate 45 mmol/ 515 mls @ 85 mls/hr 06/07/21 09:00 06/07/21 08:19 Sodium Chloride IV 06/07/21 15:03 85 mls/hr ONCE ONE Administration Insulin Human Isoph/Insulin Regular 25 unit 06/07/21 09:30 06/07/21 09:12 Insulin Nph/Regular 70/30 Inj SUB-Q 25 unit BIDDIAB DAVID Administration Insulin Human Lispro 0 unit 06/07/21 09:00 06/07/21 12:27 Insulin Lispro 100 Unit/Ml SUB-Q Not Given ACHS [facility] Protocol Metoclopramide HCl 5 mg 06/06/21 10:18 06/07/21 03:04 Metoclopramide 10 Mg/2 Ml Inj IV 5 mg Q6H PRN Administration Nausea And Vomiting Ondansetron HCl 4 mg 06/05/21 19:11 06/06/21 20:15 Ondansetron 4 Mg/2 Ml Inj IV 4 mg Q8H PRN Administration Nausea And Vomiting Oxycodone/Acetaminophen 1 tab 06/05/21 12:44 Oxycodone /Acetaminophen 5-325mg Tab PO Q16H PRN Pain, Moderate (4-6) Sodium Chloride 10 ml 06/05/21 22:00 06/07/21 10:33 Sodium Chloride 0.9% 10 Ml Flush Syringe IV 10 ml BID DAVID Administration Sodium Chloride 10 ml 06/05/21 12:44 Sodium Chloride 0.9% 10 Ml Flush Syringe IV PRN PRN LINE FLUSH Nutrition/Malnutrition Assess - Dietary Evaluation Nutrition/Malnutrition Findings: Nutrition Notes Start: 06/06/21 11:56 Freq: Status: Active Protocol: Document 06/07/21 13:09 VIKTOR (Rec: 06/07/21 13:13 [email or web address] [id number]) Nutrition Notes Initial or Follow up Brief Note Current Diet Consistent CHO Subjective/Other Information Pt reports that she's hungry at time of visit this am. She denies need for diet education; dx with DM at age of 12. Pt familiar with food sources of CHO and recommended A1C. She says she has not been taking insulin as prescribed. She says she has been busy with work and forgets to take medication. She reports family hx of DM; her mother had a kidney transplant sec to renal failure. Pt encouraged to take better care of herself and start taking insulin regularly and adhere to CHO- controlled diet in order to better control BS. #1 Nutrition Diagnosis Inadequate oral intake As Evidenced by Signs and Symptoms pt tolerating PO intake Diagnosis Progress(for reassessment Resolved documentation) Nutrition Intervention Revisit per MD consult or patient Sign Off request:
--- NOTE | 2021-06-07 14:14 | Progress Note ---
Assessment and Plan - Patient Problems (1) DKA (diabetic ketoacidosis) Current Visit: Yes Status: Acute (2) Gastroparesis Current Visit: Yes Status: Acute (3) Sepsis Current Visit: Yes Status: Acute (4) UTI (urinary tract infection) Current Visit: Yes Status: Acute Qualifiers: Encounter type: initial encounter (5) Volume depletion Current Visit: Yes Status: Acute Subjective Date of service: 06/07/21 Interval history: 20 YO Female with DM complicated by Gastroparesis, Medication Noncompliance presents to ED for evaluation. Patient reports "I have been sick the past 2 days". Patient states that she has experienced nausea, multiple episodes of vomiting, inability to tolerate oral intake, generalized weakness over the past 3 days with persistent and worsening symptoms over the same timeframe. Patient also reports abdominal cramping after multiple episodes of vomiting. EMS was notified and upon arrival the patient was found to be in distress and subsequently transported to [facility] for further care and evaluation of the aforementioned symptoms. The patient was seen and evaluated in the emergency department. All lab and imaging studies reviewed. Patient found to have Kussmaul breathing secondary to diabetic ketoacidosis, volume depletion. Patient also found to have urinary tract infection complicated by sepsis. Patient admitted to ICU and initiated on DKA and sepsis protocols respectively. Patient denies fever, chills, chest pain, palpitation productive cough, skin rash, recent contact, known exposure to COVID-19. Prior admission on 02/22/2021 reviewed. All medication listed at time of admission has been reconciled. Advanced care planning conducted in ED. Past History Past Medical History: diabetes, other (See HPI) Past Surgical History: No surgical history, Other (Reviewed) Social history: single. denies: smoking, alcohol abuse, prescription drug abuse Family history: diabetes, hypertension Objective Vital Signs - 12hr 06/07/21 06/07/21 06/07/21 03:00 03:12 03:13 Temperature Pulse Rate 93 H 102 H Pulse Rate [ 102 H From Monitor] Respiratory 12 14 Rate Blood Pressure 133/94 O2 Sat by Pulse 100 98 Oximetry 06/07/21 06/07/21 06/07/21 04:00 05:00 06:00 Temperature 98.6 F Pulse Rate 94 H 97 H 102 H Pulse Rate [ From Monitor] Respiratory 14 14 19 Rate Blood Pressure 126/86 123/78 126/72 O2 Sat by Pulse 97 100 100 Oximetry 06/07/21 06/07/21 06/07/21 07:00 07:22 08:00 Temperature 99.0 F 99.0 F Pulse Rate 86 98 H Pulse Rate [ 85 From Monitor] Respiratory 12 13 Rate Blood Pressure 119/87 O2 Sat by Pulse 98 100 Oximetry 06/07/21 06/07/21 06/07/21 08:01 09:01 10:00 Temperature Pulse Rate 101 H 95 H 100 H Pulse Rate [ From Monitor] Respiratory 12 15 16 Rate Blood Pressure 118/86 126/81 119/82 O2 Sat by Pulse 98 99 100 Oximetry 06/07/21 06/07/21 06/07/21 11:00 12:00 12:01 Temperature 98.7 F Pulse Rate 95 H 101 H 106 H Pulse Rate [ 100 H From Monitor] Respiratory 15 19 17 Rate Blood Pressure 139/109 139/99 O2 Sat by Pulse 99 99 77 L Oximetry CBC and BMP: 06/07/21 04:27 06/07/21 04:27 Abnormal lab findings: Abnormal Labs 06/05/21 06/05/21 06/05/21 09:33 09:33 09:33 WBC 13.7 H RBC 5.46 H Hgb 14.4 H Hct 48.7 H MCH 26 L RDW 17.3 H [place] % (Auto) Lymph # (Auto) Seg Neutrophils % VBG pH 7.096 L* Sodium 134 L Potassium Chloride Carbon Dioxide BUN Creatinine Glucose 433 H POC Glucose Hemoglobin A1c Calcium 10.9 H Phosphorus Magnesium Total Protein 8.5 H Albumin 5.2 H Urine WBC (Auto) 06/05/21 06/05/21 06/05/21 09:33 11:09 11:10 WBC RBC Hgb Hct MCH RDW [place] % (Auto) Lymph # (Auto) Seg Neutrophils % VBG pH Sodium Potassium 5.3 H Chloride 107.9 H Carbon Dioxide 4 L* BUN Creatinine Glucose 409 H POC Glucose Hemoglobin A1c Calcium Phosphorus 4.60 H Magnesium 2.50 H Total Protein Albumin Urine WBC (Auto) 11.0 H 06/05/21 06/05/21 06/05/21 13:11 14:08 14:16 WBC RBC Hgb Hct MCH RDW [place] % (Auto) Lymph # (Auto) Seg Neutrophils % VBG pH Sodium Potassium 5.7 H Chloride 113.7 H Carbon Dioxide 6 L* BUN Creatinine Glucose 234 H POC Glucose 305 H 209 H Hemoglobin A1c Calcium Phosphorus Magnesium Total Protein Albumin Urine WBC (Auto) 06/05/21 06/05/21 06/05/21 15:17 15:50 17:05 WBC RBC Hgb Hct MCH RDW [place] % (Auto) Lymph # (Auto) Seg Neutrophils % VBG pH Sodium Potassium Chloride Carbon Dioxide BUN Creatinine Glucose POC Glucose 181 H 164 H 198 H Hemoglobin A1c Calcium Phosphorus Magnesium Total Protein Albumin Urine WBC (Auto) 06/05/21 06/05/21 06/05/21 18:13 18:47 20:00 WBC RBC Hgb Hct MCH RDW [place] % (Auto) Lymph # (Auto) Seg Neutrophils % VBG pH Sodium Potassium Chloride Carbon Dioxide BUN Creatinine Glucose POC Glucose 183 H 191 H 159 H Hemoglobin A1c Calcium Phosphorus Magnesium Total Protein Albumin Urine WBC (Auto) 06/05/21 06/05/21 06/05/21 20:58 22:08 22:21 WBC RBC Hgb Hct MCH RDW [place] % (Auto) Lymph # (Auto) Seg Neutrophils % VBG pH Sodium Potassium 3.4 L D Chloride 111.8 H Carbon Dioxide 13 L D BUN 5 L Creatinine 0.5 L Glucose 178 H POC Glucose 149 H 167 H Hemoglobin A1c Calcium Phosphorus Magnesium Total Protein Albumin Urine WBC (Auto) 06/05/21 06/06/21 06/06/21 23:01 00:05 01:07 WBC RBC Hgb Hct MCH RDW [place] % (Auto) Lymph # (Auto) Seg Neutrophils % VBG pH Sodium Potassium Chloride Carbon Dioxide BUN Creatinine Glucose POC Glucose 143 H 166 H 177 H Hemoglobin A1c Calcium Phosphorus Magnesium Total Protein Albumin Urine WBC (Auto) 06/06/21 06/06/21 06/06/21 02:05 03:01 04:11 WBC RBC Hgb Hct MCH RDW [place] % (Auto) Lymph # (Auto) Seg Neutrophils % VBG pH Sodium Potassium Chloride Carbon Dioxide BUN Creatinine Glucose POC Glucose 162 H 143 H 155 H Hemoglobin A1c Calcium Phosphorus Magnesium Total Protein Albumin Urine WBC (Auto) 06/06/21 06/06/21 06/06/21 04:55 05:09 06:03 WBC RBC Hgb Hct MCH RDW [place] % (Auto) Lymph # (Auto) Seg Neutrophils % VBG pH Sodium 136 L Potassium 5.1 H D Chloride Carbon Dioxide 15 L BUN 4 L Creatinine 0.5 L Glucose 162 H POC Glucose 149 H 163 H Hemoglobin A1c Calcium Phosphorus Magnesium Total Protein Albumin Urine WBC (Auto) 06/06/21 06/06/21 06/06/21 06:54 07:40 07:40 WBC RBC Hgb Hct MCH 27 L RDW 16.9 H [place] % (Auto) 7.7 H Lymph # (Auto) 1.1 L Seg Neutrophils % 78.8 H VBG pH Sodium Potassium Chloride Carbon Dioxide BUN Creatinine Glucose POC Glucose 160 H Hemoglobin A1c 16.0 H Calcium Phosphorus Magnesium Total Protein Albumin Urine WBC (Auto) 06/06/21 06/06/21 06/06/21 07:59 08:53 10:12 WBC RBC Hgb Hct MCH RDW [place] % (Auto) Lymph # (Auto) Seg Neutrophils % VBG pH Sodium Potassium Chloride Carbon Dioxide BUN Creatinine Glucose POC Glucose 170 H 157 H 164 H Hemoglobin A1c Calcium Phosphorus Magnesium Total Protein Albumin Urine WBC (Auto) 06/06/21 06/06/21 06/06/21 11:05 12:31 13:18 WBC RBC Hgb Hct MCH RDW [place] % (Auto) Lymph # (Auto) Seg Neutrophils % VBG pH Sodium Potassium Chloride Carbon Dioxide BUN Creatinine Glucose POC Glucose 154 H 144 H 167 H Hemoglobin A1c Calcium Phosphorus Magnesium Total Protein Albumin Urine WBC (Auto) 06/06/21 06/06/21 06/06/21 14:50 14:50 16:57 WBC RBC Hgb Hct MCH RDW [place] % (Auto) Lymph # (Auto) Seg Neutrophils % VBG pH Sodium 134 L Potassium 2.9 L* D Chloride Carbon Dioxide 15 L BUN 3 L Creatinine 0.4 L Glucose 159 H POC Glucose 157 H 165 H Hemoglobin A1c Calcium 8.3 L Phosphorus 1.20 L D Magnesium 1.50 L Total Protein Albumin Urine WBC (Auto) 06/06/21 06/06/21 06/06/21 18:39 21:03 23:04 WBC RBC Hgb Hct MCH RDW [place] % (Auto) Lymph # (Auto) Seg Neutrophils % VBG pH Sodium Potassium Chloride Carbon Dioxide BUN Creatinine Glucose POC Glucose 163 H 157 H 162 H Hemoglobin A1c Calcium Phosphorus Magnesium Total Protein Albumin Urine WBC (Auto) 06/06/21 06/07/21 06/07/21 23:57 01:05 02:02 WBC RBC Hgb Hct MCH RDW [place] % (Auto) Lymph # (Auto) Seg Neutrophils % VBG pH Sodium 134 L Potassium 3.2 L Chloride Carbon Dioxide 18 L BUN 2 L Creatinine 0.4 L Glucose 187 H POC Glucose 183 H 166 H Hemoglobin A1c Calcium 7.8 L Phosphorus Magnesium Total Protein Albumin Urine WBC (Auto) 06/07/21 06/07/21 06/07/21 03:00 03:58 04:27 WBC RBC Hgb Hct MCH 26 L RDW 17.3 H [place] % (Auto) Lymph # (Auto) Seg Neutrophils % VBG pH Sodium Potassium Chloride Carbon Dioxide BUN Creatinine Glucose POC Glucose 177 H 134 H Hemoglobin A1c Calcium Phosphorus Magnesium Total Protein Albumin Urine WBC (Auto) 06/07/21 06/07/21 06/07/21 04:27 05:07 06:58 WBC RBC Hgb Hct MCH RDW [place] % (Auto) Lymph # (Auto) Seg Neutrophils % VBG pH Sodium 135 L Potassium 2.8 L* Chloride Carbon Dioxide BUN 2 L Creatinine 0.4 L Glucose 144 H POC Glucose 141 H 150 H Hemoglobin A1c Calcium 7.9 L Phosphorus 1.90 L D Magnesium Total Protein Albumin Urine WBC (Auto) 06/07/21 08:56 WBC RBC Hgb Hct MCH RDW [place] % (Auto) Lymph # (Auto) Seg Neutrophils % VBG pH Sodium Potassium Chloride Carbon Dioxide BUN Creatinine Glucose POC Glucose 144 H Hemoglobin A1c Calcium Phosphorus Magnesium Total Protein Albumin Urine WBC (Auto)
[2021-06-07] MEDS: cefTRIAXone/NS 1 GM/50 ML 1 GM/50 ML BAG IV SCH (16:20)
--- NOTE | 2021-06-07 17:48 | Discharge Summary ---
Providers - Providers Date of Admission: 06/05/21 12:44 Attending physician: VENKATESH HELTON MD 06/05/21 12:11 Consult to Physician [CONS] Urgent Comment: Consulting Provider: SONIDO GOLD Physician Instructions: Reason For Exam: DKA Primary care physician: LABORATORY MILLER Hospitalization Reason for admission: nausea/vomiting Condition: Stable Hospital course: History Interval history: This is a 20-year-old female with type I DM, gastroparesis and noncompliance presents to the hospital on 06/05 with complaints of being sick over the past 2 days, nausea, multiple episodes of vomiting, inability to tolerate p.o. intake, generalized weakness for the past 3 days with abdominal cramps on 06/05 via EMS. In the emergency department patient was noted to have Kussmaul respirations and lab work was consistent with DKA, UTI and sepsis. Patient was admitted to the hospital service to the ICU with critical care consult DKA and UTI. Hospital Course to Date: 06/06: Remains on DKA protoccol. Anion gap is still 20 this am. Aditional IVF boluses administered. Patient still unable to tolerate PO intake due to nausea, PRN reglan added for N/V. Patient also is also complaining of abdominal pain, CT ABD/Pelvis is unremarkable, PRN analgesia for pain management. Continue insulin gtt and IVF hydration until gap is closed. Monitor and replace electrolytes as needed, serial labs ordered. Thorough discussion with patient at the bedside. Plan of care was discussed and the importance of medications compliance and associated risks of uncontrolled diabetes was also emphasized. Patient acknowledges understanding and agreement with care plan. 06/07: Anion gap closed, transition to SSI and long-acting insulin. Started on a p.o. diet and was able to tolerate. Transferred to the floor. Patient transferred to room 391 med/surg bed. Patient states she would like to leave. Notified of risks of doing so but insists on leaving. SHELLEY Colby provided paper work and patient signed out AMA. Neuro: h/o medical noncompliance -Avoid delirium -Reorientation as needed -Maintain sleep-wake cycle -As needed analgesia -Stress medical complience Cardiac: NAD -Blood pressure monitoring per protocol Respiratory: NAD -Currently on room air -SPO2 monitor per protocol -Supplemental oxygen as needed -Pulmonary hygiene GI: Intractable abdominal pain (resolved) , h/o gastroparesis -24 hours -143 -PPI -CC diet -BR: colace : Hypokalemia, hyponatremia, hypophosphatemia -Replete potassium aggressively -KCl IV 40 mEq, p.o. 40 mEq -1400 potassium -Replete with K-Phos 45 mmol -P.m. BMP -Trend BMP, phos, mag ID: Sepsis (POA), UTI -Meets criteria with tachycardia, leukocytosis and urinary tract infection on UA -Infectious disease consulted, appreciate recommendation -Antibiotic therapy with Rocephin x 3 days -f/u blood culture -Monitor WBC and temperature curve Endo: s/p DKA, uncontrolled type 1 diabetes mellitus -Avoid hypoglycemia -SSI -Accu-Cheks ACHS -Long-acting insulin, titrate as needed -Hemoglobin A1c 16 Heme: Leukocytosis (resolved) -Trend CBC -Transfuse hemoglobin less than 7 -Monitor for signs of bleeding -SCDs to BLE while in bed -Lovenox subq Disposition: 07 LEFT AGAINST MEDICAL ADVICE Final Discharge Diagnosis (Prints w/discharge instructions): diabetic ketoacidosis Core Measure Documentation - Palliative Care Palliative Care/ Comfort Measures: Not Applicable - Core Measures Any of the following diagnoses?: none Exam - Constitutional Vitals: Temp Pulse Resp BP Pulse Ox 98.7 F 106 H 17 139/99 77 L 06/07/21 12:00 06/07/21 12:01 06/07/21 12:01 06/07/21 12:01 06/07/21 12:01 General appearance: Present: no acute distress - EENT Eyes: Present: PERRL, EOM intact ENT: hearing intact, clear oral mucosa, dentition normal - Neck Neck: Present: supple, normal ROM - Cardiovascular Rhythm: regular Heart Sounds: Present: S1 & S2 - Extremities Extremities: no ischemia, No edema, Full ROM Peripheral Pulses: within normal limits - Abdominal General gastrointestinal: Present: soft, tender - Integumentary Integumentary: Present: clear, warm, dry - Musculoskeletal Musculoskeletal: strength equal bilaterally - Psychiatric Psychiatric: appropriate mood/affect - Neurologic Neurologic: CNII-XII intact Plan Follow up with: PRIMARY CARE, [Primary Care Provider] - 7 Days Forms: Work/School Release Form
[2021-06-08] MEDS ORDERED: ENOXAPARIN 30 MG/0.3 ML INJ SUB-Q SCH (10:00)
[2021-06-08] MEDS ORDERED: FAMOTIDINE 20 MG TAB PO SCH (10:00)
[2021-06-08] MEDS ORDERED: ENOXAPARIN 40 MG/0.4 ML INJ SUB-Q SCH (10:00)
== END 2021-06-07 16:30 | disposition left against medical advice (07) | DRG 871 ==
LOC: ED 06:57 → CC1 12:44 → 3A 06-07 12:55
PROVIDERS: ADMIT Internal Medicine; ATTEND Internal Medicine
DX: A41.9 Sepsis, unspecified organism (principal); E10.10 Type 1 diabetes mellitus with ketoacidosis without coma; N39.0 Urinary tract infection, site not specified; E87.1 Hypo-osmolality and hyponatremia; E86.9 Volume depletion, unspecified; F03.90 Unspecified dementia, unspecified severity, without behavioral disturbance, psychotic disturbance, mood disturbance, and anxiety; E10.43 Type 1 diabetes mellitus with diabetic autonomic (poly)neuropathy; K31.84 Gastroparesis; E87.6 Hypokalemia; E83.39 Other disorders of phosphorus metabolism; Z53.29 Procedure and treatment not carried out because of patient's decision for other reasons; Z82.49 Family history of ischemic heart disease and other diseases of the circulatory system; Z91.19 Patient's noncompliance with other medical treatment and regimen; Z83.3 Family history of diabetes mellitus; Z79.4 Long term (current) use of insulin
CPT/HCPCS: 36415; 74177; 80048; 80053; 80307; 81001; 82140; 82805; 82962; 83036; 83690; 83735; 84100; 84145; 84439; 84443; 84703; 85025; 85027; 86850; 86900; 86901; 87040; 87086; 93005; G0378; J3480; J3490; J7070; J7510; Q0162; Q0177; Q9967; J0696; J1170; J1200; J1815; J2270; J2405; J2765; J3010; J3475; J7030; J7040; J7120

== ENCOUNTER 2021-07-11 22:08 | Inpatient (IN) | payer SELFPAY ==
[2021-07-11] MEDS ORDERED: SODIUM CHLORIDE 0.9% 1000 ML 2,000 ML IV ONE (22:50)
--- NOTE | 2021-07-11 22:51 | Emergency Department Report ---
ED General Adult HPI - General Chief complaint: Hyperglycemia Stated complaint: HYPERGLYCEMIA Time Seen by Provider: 07/11/21 22:49 Source: patient, EMS ( EMS documentation not available at time of chart dictation ), RN notes reviewed, old records reviewed Mode of arrival: Stretcher Limitations: Physical Limitation - History of Present Illness Initial comments: The patient is a 20-year-old female. She has a history of type 1 diabetes, gastroparesis and noncompliance. Patient was admitted to this hospital June 2021, with DKA, UTI, and sepsis. She was also found to have hypokalemia, pseudohyponatremia, and hypophosphatemia. Patient presents to the ER today with complaints of shortness of breath, abdominal cramping, malaise, fatigue, increased thirst. This is similar to prior episodes of gastroparesis. This is similar to prior episodes of DKA. She reports compliance with her medications, and denies dietary indiscretions. She denies dysuria to myself -: Gradual Location: abdomen Severity scale (0 -10): 10 Quality: aching Consistency: constant Improves with: medication, rest Worsens with: movement - Related Data Home Medications Medication Instructions Recorded Confirmed Last Taken Insulin NPH Hum/Reg Insulin Hm 35 unit SQ QDAY 06/05/21 06/05/21 Unknown [HumuLIN 70/30 Kwikpen] Insulin Detemir [Levemir Flextouch] 35 unit SQ BID 06/06/21 06/06/21 Unknown Previous Rx's Medication Instructions Recorded Last Taken Type Insulin Lispro [Humalog 100 5 units SQ TIDWM #5 ml 02/24/21 06/04/21 06:30 Rx UNITS/ML Kwikpen] Allergies Allergy/AdvReac Type Severity Reaction Status Date / Time No Known Allergies Allergy Verified 06/05/21 09:00 ED Review of Systems ROS: Stated complaint: HYPERGLYCEMIA Other details as noted in HPI Constitutional: malaise, weakness. denies: fever Eyes: denies: eye discharge ENT: denies: epistaxis, congestion Respiratory: shortness of breath Cardiovascular: denies: chest pain Gastrointestinal: abdominal pain Genitourinary: frequency Musculoskeletal: arthralgia, myalgia Neurological: weakness Hematological/Lymphatic: denies: easy bleeding ED Past Medical Hx - Past Medical History Previous Medical History?: Yes Hx Diabetes: Yes Hx GERD: Yes Hx Dementia: Yes Additional medical history: Gastroparesis - Surgical History Past Surgical History?: No - Social History Smoking Status: Current Every Day Smoker Substance Use Type: None - Medications Home Medications: Home Medications Medication Instructions Recorded Confirmed Last Taken Type Insulin Lispro [Humalog 100 5 units SQ TIDWM #5 ml 02/24/21 06/06/21 06/04/21 06:30 Rx UNITS/ML Kwikpen] Insulin NPH Hum/Reg Insulin Hm 35 unit SQ QDAY 06/05/21 06/05/21 Unknown History [HumuLIN 70/30 Kwikpen] Insulin Detemir [Levemir Flextouch] 35 unit SQ BID 06/06/21 06/06/21 Unknown History ED Physical Exam - General Limitations: Physical Limitation General appearance: alert, anxious, in distress - Head Head exam: Present: atraumatic, normocephalic - Eye Eye exam: Present: normal appearance, EOMI. Absent: nystagmus - ENT ENT exam: Present: normal orophraynx, mucous membranes dry, normal external ear exam - Neck Neck exam: Present: normal inspection, full ROM. Absent: tenderness, meningismus - Respiratory Respiratory exam: Present: respiratory distress, accessory muscle use. Absent: wheezes, rales, rhonchi, stridor - Cardiovascular Cardiovascular Exam: Present: normal rhythm, tachycardia, normal heart sounds. Absent: bradycardia, irregular rhythm, systolic murmur, diastolic murmur, rubs, gallop - GI/Abdominal GI/Abdominal exam: Present: soft. Absent: distended, tenderness, guarding, rebound, rigid, pulsatile mass - Extremities Exam Extremities exam: Present: normal inspection, full ROM, other (2+ pulses noted in the bilateral upper and lower extremities. There is no palpable cord. negative Homans sign. Muscular compartments are soft. The pelvis is stable.). Absent: pedal edema, calf tenderness - Back Exam Back exam: Present: normal inspection. Absent: tenderness, CVA tenderness (R), CVA tenderness (L), paraspinal tenderness, vertebral tenderness - Neurological Exam Neurological exam: Present: alert, oriented X3, normal gait, other (No facial droop. Tongue midline. Extraocular movements intact bilaterally. Facial sensation intact to light touch in V1, V2, V3 distribution bilaterally. 5 and a 5 strength in 4 extremities. Sensation intact to light touch in 4 extremities.). Absent: motor sensory deficit - Psychiatric Psychiatric exam: Present: anxious - Skin Skin exam: Present: warm, dry, intact, normal color. Absent: rash ED Course Vital Signs 07/11/21 07/11/21 07/11/21 22:39 22:40 22:44 Temperature 98 F 97.6 F Pulse Rate 136 H 149 H 145 H Respiratory 22 21 31 H Rate Blood Pressure 124/88 Blood Pressure 126/82 [Left] O2 Sat by Pulse 100 100 100 Oximetry O2 Sat by Pulse Oximetry [ Digit-Finger] 07/11/21 07/11/21 07/11/21 22:46 23:00 23:16 Temperature Pulse Rate 141 H 139 H 147 H Respiratory 23 20 22 Rate Blood Pressure 126/82 126/82 154/98 Blood Pressure [Left] O2 Sat by Pulse 99 100 100 Oximetry O2 Sat by Pulse Oximetry [ Digit-Finger] 07/11/21 07/12/21 07/12/21 23:30 00:11 00:36 Temperature Pulse Rate 157 H Respiratory 30 H 30 H Rate Blood Pressure 154/98 Blood Pressure [Left] O2 Sat by Pulse 99 Oximetry O2 Sat by Pulse 99 Oximetry [ Digit-Finger] 07/12/21 00:41 Temperature Pulse Rate Respiratory 19 Rate Blood Pressure Blood Pressure [Left] O2 Sat by Pulse Oximetry O2 Sat by Pulse Oximetry [ Digit-Finger] - Reevaluation(s) Reevaluation #1: 07/11/21 23:44 Differential diagnosis, including but not limited to: Dehydration, pneumonia, UTI, diabetic ketoacidosis Assessment and plan: 20-year-old female with probable diabetic ketoacidosis, superimposed systemic inflammatory response syndrome. Abdomen is soft and lizzeth gn, without rebound, guarding or peritoneal signs, had negative CT scan of the abdomen pelvis last month with similar symptoms. Venous pH very suggestive of diabetic ketoacidosis. Fluids, pain medication ordered, will initiate insulin therapy once potassium level has resulted. Awaiting callback from critical care physician to arrange admission to the intensive care unit. This patient had pyuria during her recent admission, with a negative urine culture. No bacteriuria was noted. Suspect that tachycardia and tachypnea likely reactive to underlying diabetic ketoacidosis. Critical care physician has been paged, awaiting callback. Admit patient to the ICU under care of hospital physician once laboratory studies have resulted. 07/11/21 23:45 07/12/21 00:32 Laboratory studies confirm diabetic ketoacidosis. Lactic acid within normal limits. Suspect that abnormal vital signs, presentation and WBC count likely secondary to physiologic stress of diabetic ketoacidosis. Given normal lactic acid, I think infectious process is less likely. It is suspected at this point time that the patient may be deliberately not taking her medications to provoke DKA, given that she may have some narcotic seeking tendencies. However, she clearly merits admission for her metabolic derangements. Discussed the patient's history, physical, laboratory studies and clinical impression with critical care on-call, Dr Valdez, who will arrange for admission to the intensive care unit. Hospital physician, Dr. Ambrosio to admit to [facility] - Pulse Oximetry Interpretation Digit-Finger Initial Pulse Oximetry Readin O2 Sat by Pulse Oximetry: 99 Actions Taken: none ED Medical Decision Making - Lab Data Result diagrams: 07/11/21 23:06 07/11/21 23:06 Vital Signs 07/11/21 07/11/21 07/11/21 22:39 22:40 22:44 Temperature 98 F 97.6 F Pulse Rate 136 H 149 H 145 H Respiratory 22 21 31 H Rate Blood Pressure 124/88 Blood Pressure 126/82 [Left] O2 Sat by Pulse 100 100 100 Oximetry 07/11/21 22:46 Temperature Pulse Rate 141 H Respiratory 23 Rate Blood Pressure 126/82 Blood Pressure [Left] O2 Sat by Pulse 99 Oximetry Lab Results 07/11/21 Range/Units 23:06 VBG pH 7.121 L* (7.320-7.420) Lab Results 07/11/21 07/11/21 07/11/21 Range/Units 23:06 23:06 23:06 WBC 11.2 H (4.5-11.0) K/mm3 RBC 5.42 H (3.65-5.03) M/mm3 Hgb 14.3 (10.1-14.3) gm/dl Hct 48.6 H (30.3-42.9) % MCV 90 (79-97) fl MCH 26 L (28-32) pg MCHC 29 L (30-34) % RDW 18.3 H (13.2-15.2) % Plt Count 345 (140-440) K/mm3 Lymph % (Auto) 15.0 (13.4-35.0) % [place] % (Auto) 8.6 H (0.0-7.3) % Eos % (Auto) 0.0 (0.0-4.3) % Baso % (Auto) 0.2 (0.0-1.8) % Lymph # (Auto) 1.7 (1.2-5.4) K/mm3 [place] # (Auto) 1.0 H (0.0-0.8) K/mm3 Eos # (Auto) 0.0 (0.0-0.4) K/mm3 Baso # (Auto) 0.0 (0.0-0.1) K/mm3 Seg Neutrophils % 76.2 H (40.0-70.0) % Seg Neutrophils # 8.6 H (1.8-7.7) K/mm3 VBG pH (7.320-7.420) Sodium 144 (137-145) mmol/L Potassium 5.3 H (3.6-5.0) mmol/L Chloride 103.0 (98-107) mmol/L Carbon Dioxide 5 L* (22-30) mmol/L Anion Gap 41 mmol/L BUN 17 (7-17) mg/dL Creatinine 1.1 (0.6-1.2) mg/dL Estimated GFR > 60 ml/min BUN/Creatinine Ratio 15 % Glucose 451 H (65-100) mg/dL Lactic Acid 1.60 (0.7-2.0) mmol/L Calcium 10.0 (8.4-10.2) mg/dL Magnesium 2.30 (1.7-2.3) mg/dL Total Bilirubin 0.20 (0.1-1.2) mg/dL AST 11 (5-40) units/L ALT 13 (7-56) units/L Alkaline Phosphatase 87 (35-129) units/L Total Creatine Kinase 49 (30-135) units/L Total Protein 8.2 (6.3-8.2) g/dL Albumin 5.4 H (3.9-5) g/dL Albumin/Globulin Ratio 1.9 % HCG, Quant (0-4) mIU/mL 07/11/21 07/11/21 Range/Units 23:06 23:06 WBC (4.5-11.0) K/mm3 RBC (3.65-5.03) M/mm3 Hgb (10.1-14.3) gm/dl Hct (30.3-42.9) % MCV (79-97) fl MCH (28-32) pg MCHC (30-34) % RDW (13.2-15.2) % Plt Count (140-440) K/mm3 Lymph % (Auto) (13.4-35.0) % [place] % (Auto) (0.0-7.3) % Eos % (Auto) (0.0-4.3) % Baso % (Auto) (0.0-1.8) % Lymph # (Auto) (1.2-5.4) K/mm3 [place] # (Auto) (0.0-0.8) K/mm3 Eos # (Auto) (0.0-0.4) K/mm3 Baso # (Auto) (0.0-0.1) K/mm3 Seg Neutrophils % (40.0-70.0) % Seg Neutrophils # (1.8-7.7) K/mm3 VBG pH 7.121 L* (7.320-7.420) Sodium (137-145) mmol/L Potassium (3.6-5.0) mmol/L Chloride (98-107) mmol/L Carbon Dioxide (22-30) mmol/L Anion Gap mmol/L BUN (7-17) mg/dL Creatinine (0.6-1.2) mg/dL Estimated GFR ml/min BUN/Creatinine Ratio % Glucose (65-100) mg/dL Lactic Acid (0.7-2.0) mmol/L Calcium (8.4-10.2) mg/dL Magnesium (1.7-2.3) mg/dL Total Bilirubin (0.1-1.2) mg/dL AST (5-40) units/L ALT (7-56) units/L Alkaline Phosphatase (35-129) units/L Total Creatine Kinase (30-135) units/L Total Protein (6.3-8.2) g/dL Albumin (3.9-5) g/dL Albumin/Globulin Ratio % HCG, Quant < 2 (0-4) mIU/mL - Radiology Data Radiology results: pending, report reviewed, image reviewed CT ABDOMEN AND PELVIS WITH IV CONTRAST, 06/05/2021 INDICATION: Abdominal pain, nausea and vomiting TECHNIQUE: Following the administration of intravenous contrast, multiple axial CT images of the abdomen and pelvis were acquired. Sagittal and coronal reformats were obtained. All CT performed at this facility utilize dose reduction techniques including automated exposure control, iterative reconstruction and weight based dosing when appropriate to reduce patient radiation dose to as low as reasonably achievable. COMPARISON: None FINDINGS: Lung bases: Limited imaging of the bilateral lung bases demonstrates no focal abnormality. ABDOMEN: LIVER/BILE DUCTS: No significant abnormality. G ALL BLADDER: No significant abnormality. STOMACH: No significant abnormality. PANCREAS: No significant abnormality. SPLEEN: No significant abnormality. ADRENALS: No significant abnormality. RIGHT KIDNEY / URETER: No significant abnormality. LEFT KIDNEY / URETER: No significant abnormality. AORTA: The abdominal aorta is normal in caliber. SMALL AND LARGE BOWEL: Evaluation is somewhat limited due to the lack of intra-abdominal fat. Small and large bowel appear normal in caliber. There is no evidence of bowel obstruction. APPENDIX: The appendix is not definitively identified but no pericecal inflammatory changes are noted. PELVIS: There is marked distention of the urinary bladder. The uterus appears normal. No large amount of free pelvic fluid is identified. BONES AND SOFT TISSUES: No significant abnormality. IMPRESSION: 1. No evidence of acute inflammatory process within the abdomen or pelvis. 2. Marked distention of the urinary bladder. Signer Name: Valeria Castro MD Signed: 06/05/2021 10:24 AM Workstation Name: [id number] CHEST 1 VIEW 07/11/2021 12:17 AM INDICATION / CLINICAL INFORMATION: sepsis dka tachycardia. COMPARISON: None available. FINDINGS: SUPPORT DEVICES: None. H EART / MEDIASTINUM: No significant abnormality. LUNGS / PLEURA: No significant pulmonary or pleural abnormality. No pneumothorax. ADDITIONAL FINDINGS: No significant additional findings. IMPRESSION: 1. No acute findings. Signer Name: Peter Correa DO Signed: 07/11/2021 11:50 PM Workstation Name: [id number] Critical Care Time: Yes Critical care time in (mins) excluding proc time.: 35 Critical care attestation.: If time is entered above; I have spent that time in minutes in the direct care of this critically ill patient, excluding procedure time. ED Disposition Clinical Impression: DKA (diabetic ketoacidosis), Volume depletion, Noncompliance, Gastroparesis Disposition: 09 ADMITTED INPATIENT Is pt being admited?: Yes Does the pt Need Aspirin: No Condition: Critical Instructions: Diabetic Ketoacidosis (ED) Referrals: KEANU GALICIA MD [Primary Care Provider] - 3-5 Days
[2021-07-11] MEDS ORDERED: METOCLOPRAMIDE 10 MG/2 ML INJ IV ONE (23:39)
[2021-07-11] MEDS ORDERED: HYDROmorphone 1 MG/1 ML INJ IV ONE (23:39)
[2021-07-11 23:55] LABS: Alanine Aminotransferase 13 units/L (7-56); Albumin 5.4 g/dL (3.9-5); BUN/Creatinine Ratio 15; Blood Urea Nitrogen 17 mg/dL (7-17); Hemolysis Index 6
[2021-07-12 00:24] LABS: Basophils % (Auto) 0.2 % (0.0-1.8); Hematocrit 48.6 % (30.3-42.9); Hemoglobin 14.3 gm/dl (10.1-14.3); Lymphocytes # (Auto) 1.7 K/mm3 (1.2-5.4); Mean Corpuscular HGB Conc 29 % (30-34); Mean Corpuscular Volume 90 fl (79-97); Monocytes % (Auto) 8.6 % (0.0-7.3); Platelet Count 345 K/mm3 (140-440); Red Blood Count 5.42 M/mm3 (3.65-5.03); Red Cell Distribution Width 18.3 % (13.2-15.2)
[2021-07-12] MEDS ORDERED: DEXTROSE 50% IN WATER (25GM) 50 ML SYRINGE IV PRN ×3 (00:31→15:50)
[2021-07-12] MEDS ORDERED: INSULIN REGULAR, HUMAN 100 UNITS/1 ML IV ONE (00:31)
[2021-07-12 00:41] LABS: Bacteria,Urine 1+ /HPF (Negative); Bilirubin,Urine NEG (Negative); Blood,Urine MOD (Negative); Color,Urine Colorless (Yellow); Hyaline Casts,Urine 1 /LPF; Mucus,Urine FEW /HPF; Urobilinogen,Urine < 2.0 mg/dL (<2.0)
--- NOTE | 2021-07-12 00:54 | XRay Report ---
CHEST 1 VIEW 07/11/2021 12:17 AM INDICATION / CLINICAL INFORMATION: sepsis dka tachycardia. COMPARISON: None available. FINDINGS: SUPPORT DEVICES: None. HEART / MEDIASTINUM: No significant abnormality. LUNGS / PLEURA: No significant pulmonary or pleural abnormality. No pneumothorax. ADDITIONAL FINDINGS: No significant additional findings. IMPRESSION: 1. No acute findings. Signer Name: Peter Correa DO Signed: 07/12/2021 12:50 AM Workstation Name: [id number]
[2021-07-12] MEDS ORDERED: INSULIN REGULAR, HUMAN 100 UNITS in SODIUM CHLORIDE 0.9% 99 ML IV SCH ×2 (01:00→02:00)
[2021-07-12] MEDS ORDERED: ALBUTEROL 2.5 MG/3 ML NEBU IH PRN (01:09)
[2021-07-12] MEDS ORDERED: ONDANSETRON 4 MG/2 ML INJ IV PRN (01:09)
[2021-07-12] MEDS ORDERED: ACETAMINOPHEN 325 MG TAB PO PRN (01:09)
--- NOTE | 2021-07-12 01:17 | History and Physical Report ---
History of Present Illness Date of examination: 07/12/21 Date of admission: 07/12/21 Chief complaint: Hyperglycemia History of present illness: 20-year-old female with history of type 1 diabetes, gastroparesis and noncompliance. Patient was admitted to this hospital June 2021, with DKA, UTI, and sepsis.patient was brought to the emergency room because of shortness of breath, abdominal cramping, malaise, fatigue, increased thirst. In the emergency room patient is found to have DKA, patient blood glucose is 451, bicarb is 5, anion gap 41, potassium 5.3 and sodium 144. Chest x-ray shows no acute finding. We are going to admit the patient and put the patient on DKA pathway. Insulin drip, IV fluid and consult critical care evaluation Past History Past Medical History: diabetes, GERD, other (Gastroparesis and dementia) Social history: smoking Family history: diabetes, hypertension Medications and Allergies Allergies Allergy/AdvReac Type Severity Reaction Status Date / Time No Known Allergies Allergy Verified 06/05/21 09:00 Home Medications Medication Instructions Recorded Confirmed Last Taken Type Insulin Lispro [Humalog 100 5 units SQ TIDWM #5 ml 02/24/21 06/06/21 06/04/21 06:30 Rx UNITS/ML Kwikpen] Insulin NPH Hum/Reg Insulin Hm 35 unit SQ QDAY 06/05/21 06/05/21 Unknown History [HumuLIN 70/30 Kwikpen] Insulin Detemir [Levemir Flextouch] 35 unit SQ BID 06/06/21 06/06/21 Unknown History Active Meds: Active Medications Dextrose (Dextrose 50% In Water (25gm) 50 Ml Syringe) 0 ml IV Q30MIN PRN; Protocol PRN Reason: Hypoglycemia Insulin Human Regular 100 (units/ Sodium Chloride) 100 mls @ 1 mls/hr IV TITR DAVID; Protocol Last Admin: 07/12/21 01:06 Dose: 7 units/hr, 7 mls/hr Potassium Chloride/Dextrose/Sod Cl (D5w/0.45% Nacl/Kcl 20 Meq) 20 meq in 1,000 mls @ 125 mls/hr IV DIRECT DAVID Review of Systems Constitutional: weakness, malaise, lethargy Respiratory: shortness of breath Gastrointestinal: abdominal pain, nausea Exam - Constitutional Vitals: Temp Pulse Resp BP Pulse Ox 97.6 F 157 H 19 154/98 99 07/11/21 22:44 07/11/21 23:30 07/12/21 00:41 07/11/21 23:30 07/12/21 01:13 General appearance: Present: no acute distress, well-nourished - EENT Eyes: Present: PERRL ENT: hearing intact, clear oral mucosa - Neck Neck: Present: supple, normal ROM - Respiratory Respiratory effort: normal Respiratory: bilateral: diminished - Cardiovascular Heart Sounds: Present: S1 & S2. Absent: rub, click - Extremities Extremities: pulses symmetrical, No edema Peripheral Pulses: within normal limits - Abdominal General gastrointestinal: Present: soft, non-tender, non-distended, normal bowel sounds Female genitourinary: Present: normal - Integumentary Integumentary: Present: clear, warm, dry - Musculoskeletal Musculoskeletal: gait normal, strength equal bilaterally - Psychiatric Psychiatric: appropriate mood/affect, intact judgment & insight - Neurologic Neurologic: CNII-XII intact, moves all extremities Results - Labs CBC & Chem 7: 07/11/21 23:06 07/11/21 23:06 Labs: Laboratory Last Values WBC 11.2 K/mm3 (4.5-11.0) H 07/11/21 23:06 RBC 5.42 M/mm3 (3.65-5.03) H 07/11/21 23:06 Hgb 14.3 gm/dl (10.1-14.3) 07/11/21 23:06 Hct 48.6 % (30.3-42.9) H 07/11/21 23:06 MCV 90 fl (79-97) 07/11/21 23:06 MCH 26 pg (28-32) L 07/11/21 23:06 MCHC 29 % (30-34) L 07/11/21 23:06 RDW 18.3 % (13.2-15.2) H 07/11/21 23:06 Plt Count 345 K/mm3 (140-440) 07/11/21 23:06 Lymph % (Auto) 15.0 % (13.4-35.0) 07/11/21 23:06 [place] % (Auto) 8.6 % (0.0-7.3) H 07/11/21 23:06 Eos % (Auto) 0.0 % (0.0-4.3) 07/11/21 23:06 Baso % (Auto) 0.2 % (0.0-1.8) 07/11/21 23:06 Lymph # (Auto) 1.7 K/mm3 (1.2-5.4) 07/11/21 23:06 [place] # (Auto) 1.0 K/mm3 (0.0-0.8) H 07/11/21 23:06 Eos # (Auto) 0.0 K/mm3 (0.0-0.4) 07/11/21 23:06 Baso # (Auto) 0.0 K/mm3 (0.0-0.1) 07/11/21 23:06 Seg Neutrophils % 76.2 % (40.0-70.0) H 07/11/21 23:06 Seg Neutrophils # 8.6 K/mm3 (1.8-7.7) H 07/11/21 23:06 VBG pH 7.121 (7.320-7.420) L* 07/11/21 23:06 Sodium 144 mmol/L (137-145) 07/11/21 23:06 Potassium 5.3 mmol/L (3.6-5.0) H 07/11/21 23:06 Chloride 103.0 mmol/L (98-107) 07/11/21 23:06 Carbon Dioxide 5 mmol/L (22-30) L* 07/11/21 23:06 Anion Gap 41 mmol/L 07/11/21 23:06 BUN 17 mg/dL (7-17) 07/11/21 23:06 Creatinine 1.1 mg/dL (0.6-1.2) 07/11/21 23:06 Estimated GFR > 60 ml/min 07/11/21 23:06 BUN/Creatinine Ratio 15 % 07/11/21 23:06 Glucose 451 mg/dL (65-100) H 07/11/21 23:06 Lactic Acid 1.60 mmol/L (0.7-2.0) 07/11/21 23:06 Calcium 10.0 mg/dL (8.4-10.2) 07/11/21 23:06 Magnesium 2.30 mg/dL (1.7-2.3) 07/11/21 23:06 Total Bilirubin 0.20 mg/dL (0.1-1.2) 07/11/21 23:06 AST 11 units/L (5-40) 07/11/21 23:06 ALT 13 units/L (7-56) 07/11/21 23:06 Alkaline Phosphatase 87 units/L (35-129) 07/11/21 23:06 Total Creatine Kinase 49 units/L (30-135) 07/11/21 23:06 Total Protein 8.2 g/dL (6.3-8.2) 07/11/21 23:06 Albumin 5.4 g/dL (3.9-5) H 07/11/21 23:06 Albumin/Globulin Ratio 1.9 % 07/11/21 23:06 HCG, Quant < 2 mIU/mL (0-4) 07/11/21 23:06 Urine Color Colorless (Yellow) 07/11/21 00:07 Urine Turbidity Clear (Clear) 07/11/21 00:07 Urine pH 5.0 (5.0-7.0) 07/11/21 00:07 Ur Specific [place] 1.023 (1.003-1.030) 07/11/21 00:07 Urine Protein 30 mg/dl mg/dL (Negative) 07/11/21 00:07 Urine Glucose (UA) >=500 mg/dL (Negative) 07/11/21 00:07 Urine Ketones 80 mg/dL (Negative) 07/11/21 00:07 Urine Blood Mod (Negative) 07/11/21 00:07 Urine Nitrite Neg (Negative) 07/11/21 00:07 Urine Bilirubin Neg (Negative) 07/11/21 00:07 Urine Urobilinogen < 2.0 mg/dL (<2.0) 07/11/21 00:07 Ur Leukocyte Esterase Neg (Negative) 07/11/21 00:07 Urine WBC (Auto) 2.0 /HPF (0.0-6.0) 07/11/21 00:07 Urine RBC (Auto) 1.0 /HPF (0.0-6.0) 07/11/21 00:07 U Epithel Cells (Auto) < 1.0 /HPF (0-13.0) 07/11/21 00:07 Urine Bacteria (Auto) 1+ /HPF (Negative) 07/11/21 00:07 Hyaline Casts 1 /LPF 07/11/21 00:07 Urine Mucus Few /HPF 07/11/21 00:07 - Imaging and Cardiology Chest x-ray: report reviewed Assessment and Plan VTE prophylaxis?: Mechanical Plan of care discussed with patient/family: Yes - Patient Problems (1) DKA (diabetic ketoacidosis) Current Visit: Yes Status: Acute Plan to address problem: Admit the patient to the ICU. NPO. Half-normal saline at the rate of 150 cc/h. Insulin drip as per protocol. Serial BMP. Reconsult critical care evaluation and diabetic education (2) Gastroparesis Current Visit: Yes Status: Acute Plan to address problem: NPO. Half-normal saline at the rate of 150 cc/h. Pepcid 20 mg IV every 12 hours. Zofran 4 mg IV every 6 hours as needed (3) GERD (gastroesophageal reflux disease) Current Visit: Yes Status: Acute Plan to address problem: Pepcid 20 mg IV every 12 hours. Zofran 4 mg IV every 6 hours as needed (4) Volume depletion Current Visit: Yes Status: Acute Plan to address problem: NPO. Half-normal saline at the rate of 150 cc/h. Recheck BMP in the morning (5) Noncompliance Current Visit: Yes Status: Acute Plan to address problem: We counseled the patient regarding taking insulin regularly. Diabetic education (6) DVT prophylaxis Current Visit: No Status: Acute Plan to address problem: SCD for DVT prophylaxis. Pepcid 20 mg IV every 12 hours for GI prophylaxis. Patient is a full code
[2021-07-12] MEDS ORDERED: SODIUM CHLORIDE 0.45% 1000 ML 1,000 ML IV SCH (02:00)
[2021-07-12] MEDS: D5W/0.45% NACL/KCL 20 MEQ 20 MEQ/1,000 ML BAG IV SCH ×2 (02:30→10:11)
[2021-07-12 02:34] LABS: BUN/Creatinine Ratio 16; Blood Urea Nitrogen 16 mg/dL (7-17); Hemolysis Index 3
[2021-07-12] MEDS ORDERED: SODIUM BICARB 8.4% 50 MEQ/50 ML SYRINGE IV ONE (03:24)
[2021-07-12 05:59] LABS: BUN/Creatinine Ratio 16; Blood Urea Nitrogen 14 mg/dL (7-17); Calcium 8.9 mg/dL (8.4-10.2); Hemolysis Index 15
[2021-07-12] MEDS: MORPHINE 2 MG/1 ML INJ IV PRN ×2 (07:28→17:20)
[2021-07-12] MEDS: IPRATROPIUM/ALBUTEROL SULFATE 3 ML AMPUL.NEB IH SCH ×4 (08:26→20:18)
[2021-07-12] MEDS ORDERED: LACTATED RINGERS 2,000 ML IV ONE (08:45)
[2021-07-12] MEDS: FAMOTIDINE 20 MG/2 ML INJ IV SCH ×2 (10:05→21:14)
[2021-07-12] MEDS: HYDROmorphone 1 MG/1 ML INJ IV PRN ×2 (10:10→14:37)
--- NOTE | 2021-07-12 11:53 | Event Note ---
<KEYLA ORO - Last Filed: 07/12/21 18:45> Date: 07/12/21 This is a 20-year-old female with known past medical history of type 1 DM, gastroparesis, and medication noncompliance admitted for DKA Patient seen and examined at the bedside. Fully AAO, on RA, complaining of mild abdominal pain which is control with current pain management regimen. Patient remains on insulin gtt and IVF hydration per DKA protocol. Will transition to home regimen once anion gap is closed. Monitor and replace electrolytes as needed. PRN antiemetic for N/V and PRN analgesia for pain control. Thorough discussion with patient at the bedside. Plan of care was discussed and the importance of medications compliance and associated risks of uncontrolled diabetes was also emphasized. Patient acknowledges understanding and agreement with care plan. D/W CCM, patient is stable for transfer to the floor once off the insulin gtt. <BRAD GREENWOOD - Last Filed: 07/13/21 07:34> I saw and evaluated the patient. I agree with the findings and the plan of care as documented in the Nurse Practitioner's~note, with the following corrections and additions. 30 mins prolonged care time.
[2021-07-12 12:07] LABS: Blood Urea Nitrogen 9 mg/dL (7-17); Calcium 8.8 mg/dL (8.4-10.2); Hemolysis Index 54
[2021-07-12 12:23] LABS: BUN/Creatinine Ratio 15
--- NOTE | 2021-07-12 12:23 | Consultation ---
History of Present Illness Consult date: 07/12/21 Reason for consult: other (DKA) History of present illness: 20-year-old female with history of type 1 diabetes, gastroparesis and noncompliance. Patient was admitted to this hospital June 2021, with DKA, UTI, and sepsis.patient was brought to the emergency room because of shortness of breath, abdominal cramping, malaise, fatigue, increased thirst. In the emergency room patient is found to have DKA, patient blood glucose is 451, bicarb is 5, anion gap 41, potassium 5.3 and sodium 144. Chest x-ray shows no acute finding. We are going to admit the patient and put the patient on DKA pathway. Insulin drip, IV fluid and hence this consult critical care evaluation Patient is feeling better since admitted last night and wants to eat still somewhat sleepy no abdominal pain or nausea vomiting Past History Past Medical History: diabetes, GERD, other (Gastroparesis and dementia) Social history: smoking Family history: diabetes, hypertension Medications and Allergies Allergies Allergy/AdvReac Type Severity Reaction Status Date / Time No Known Allergies Allergy Verified 06/05/21 09:00 Home Medications Medication Instructions Recorded Confirmed Last Taken Type Insulin Lispro [Humalog 100 5 units SQ TIDWM #5 ml 02/24/21 06/06/21 06/04/21 06:30 Rx UNITS/ML Kwikpen] Insulin NPH Hum/Reg Insulin Hm 35 unit SQ QDAY 06/05/21 06/05/21 Unknown History [HumuLIN 70/30 Kwikpen] Insulin Detemir [Levemir Flextouch] 35 unit SQ BID 06/06/21 06/06/21 Unknown History Active Meds: Active Medications Acetaminophen (Acetaminophen 325 Mg Tab) 650 mg PO Q4H PRN PRN Reason: Pain MILD(1-3)/Fever >100.5/HATCH Albuterol (Albuterol 2.5 Mg/3 Ml Nebu) 2.5 mg IH Q3HRT PRN PRN Reason: Shortness Of Breath Albuterol/Ipratropium (Ipratropium/Albuterol Sulfate 3 Ml Ampul.Neb) 1 ampul IH Q6HRT DAVID Last Admin: 07/12/21 08:26 Dose: 1 ampul Dextrose (Dextrose 50% In Water (25gm) 50 Ml Syringe) 0 ml IV Q30MIN PRN; Protocol PRN Reason: Hypoglycemia Famotidine (Famotidine 20 Mg/2 Ml Inj) 20 mg IV BID [facility] Last Admin: 07/12/21 10:05 Dose: 20 mg Hydromorphone HCl (Hydromorphone 1 Mg/1 Ml Inj) 0.5 mg IV Q3H PRN PRN Reason: Pain , Severe (7-10) Last Admin: 07/12/21 10:10 Dose: 0.5 mg Insulin Human Regular 100 (units/ Sodium Chloride) 100 mls @ 1 mls/hr IV TITR [facility]; Protocol Last Titration: 07/12/21 11:35 Dose: 2 units/hr, 2 mls/hr Potassium Chloride/Dextrose/Sod Cl (D5w/0.45% Nacl/Kcl 20 Meq) 20 meq in 1,000 mls @ 125 mls/hr IV DIRECT DAVID Last Admin: 07/12/21 10:11 Dose: 125 mls/hr Sodium Chloride (Nacl 0.45% 1000 Ml) 1,000 mls @ 150 mls/hr IV DIRECT DAVID Morphine Sulfate (Morphine 2 Mg/1 Ml Inj) 2 mg IV Q4H PRN PRN Reason: Pain, Moderate (4-6) Last Admin: 07/12/21 07:28 Dose: 2 mg Ondansetron HCl (Ondansetron 4 Mg/2 Ml Inj) 4 mg IV Q8H PRN PRN Reason: Nausea And Vomiting Sodium Chloride (Sodium Chloride 0.9% 10 Ml Flush Syringe) 10 ml IV BID [facility] Last Admin: 07/12/21 10:05 Dose: 10 ml Sodium Chloride (Sodium Chloride 0.9% 10 Ml Flush Syringe) 10 ml IV PRN PRN PRN Reason: LINE FLUSH Review of Systems All systems: negative Constitutional: weight loss, anorexia Physical Examination Vital signs: Vital Signs Temp Pulse Resp BP Pulse Ox 98 F 136 H 22 124/88 100 07/11/21 22:39 07/11/21 22:39 07/11/21 22:39 07/11/21 22:39 07/11/21 22:39 General appearance: no acute distress, other (Somewhat groggy) Eyes: non-icteric ENT: other (Oropharynx dry) Neck: supple, no lymphadenopathy, no JVD Ascultation: Bilateral: clear Cardiovascular: regular rate and rhythm (Mild tachycardia noted) Gastrointestinal: normoactive bowel sounds, soft, non-tender Extremities: no cyanosis, no edema Musculoskeletal: no deformities Gait: other other (Groggy) Results - Laboratory Findings CBC and BMP: 07/11/21 23:06 07/12/21 11:20 Abnormal lab findings: Abnormal Labs 07/11/21 07/11/21 07/11/21 22:36 23:06 23:06 WBC 11.2 H RBC 5.42 H Hct 48.6 H MCH 26 L MCHC 29 L RDW 18.3 H Hyde % (Auto) 8.6 H Hyde # (Auto) 1.0 H Seg Neutrophils % 76.2 H Seg Neutrophils # 8.6 H VBG pH Sodium Potassium 5.3 H Chloride Carbon Dioxide 5 L* Glucose 451 H POC Glucose 424 H Albumin 5.4 H 07/11/21 07/12/21 07/12/21 23:06 00:54 02:01 WBC RBC Hct MCH MCHC RDW Hyde % (Auto) Hyde # (Auto) Seg Neutrophils % Seg Neutrophils # VBG pH 7.121 L* Sodium 146 H Potassium Chloride 112.2 H Carbon Dioxide 6 L* Glucose 266 H POC Glucose 367 H Albumin 07/12/21 07/12/21 07/12/21 02:09 03:18 04:23 WBC RBC Hct MCH MCHC RDW Hyde % (Auto) Hyde # (Auto) Seg Neutrophils % Seg Neutrophils # VBG pH Sodium Potassium Chloride Carbon Dioxide Glucose POC Glucose 223 H 210 H 205 H Albumin 07/12/21 07/12/21 07/12/21 05:08 05:25 06:29 WBC RBC Hct MCH MCHC RDW Hyde % (Auto) Hyde # (Auto) Seg Neutrophils % Seg Neutrophils # VBG pH Sodium 148 H Potassium Chloride 115.4 H Carbon Dioxide 10 L Glucose 212 H POC Glucose 187 H 197 H Albumin 07/12/21 07/12/21 07/12/21 07:09 08:02 08:57 WBC RBC Hct MCH MCHC RDW Hyde % (Auto) Hyde # (Auto) Seg Neutrophils % Seg Neutrophils # VBG pH Sodium Potassium Chloride Carbon Dioxide Glucose POC Glucose 163 H 156 H 153 H Albumin 07/12/21 07/12/21 09:55 11:20 WBC RBC Hct MCH MCHC RDW Hyde % (Auto) Hyde # (Auto) Seg Neutrophils % Seg Neutrophils # VBG pH Sodium Potassium Chloride 114.3 H Carbon Dioxide 13 L Glucose 149 H POC Glucose 146 H Albumin - Diagnostic Findings Chest x-ray: image reviewed (Clear) Assessment and Plan Impression: Diabetic ketoacidosis Type 1 diabetes mellitus Dehydration secondary to above Recommendation: Continue with the DKA protocol including IV fluids and insulin drip DVT and GI prophylaxis Will monitor closely. Total critical care time 31-minute
[2021-07-12] MEDS ORDERED: LACTATED RINGERS 1,000 ML IV ONE (13:45)
[2021-07-12] MEDS ORDERED: SODIUM PHOSPHATE 30 MMOL in SODIUM CHLORIDE 0.9% 500 ML 500 ML IV SCH (14:00)
[2021-07-12] MEDS ORDERED: INSULIN GLARGINE 100 UNITS/ML SUB-Q ONE (17:30)
[2021-07-12 20:12] LABS: Blood Urea Nitrogen 6 mg/dL (7-17); Calcium 8.5 mg/dL (8.4-10.2); Hemolysis Index 2
[2021-07-12 20:18] LABS: BUN/Creatinine Ratio 10
[2021-07-12] MEDS: INSULIN LISPRO 100 UNIT/ML SUB-Q SCH (21:14)
[2021-07-12] MEDS ORDERED: MAGNESIUM SULFATE 2 GM/50 ML BAG IV ONE (21:20)
[2021-07-12] MEDS ORDERED: POTASSIUM CHLORIDE ER 20 MEQ TAB PO ONE (21:22)
[2021-07-13] MEDS: IPRATROPIUM/ALBUTEROL SULFATE 3 ML AMPUL.NEB IH SCH ×2 (02:52→09:06)
[2021-07-13] MEDS: MORPHINE 2 MG/1 ML INJ IV PRN (03:43)
[2021-07-13] MEDS ORDERED: HYDROmorphone 1 MG/1 ML INJ IV ONE (05:01)
[2021-07-13] MEDS: METOCLOPRAMIDE 10 MG/2 ML INJ IV PRN ×2 (05:08→11:32)
[2021-07-13] MEDS: INSULIN LISPRO 100 UNIT/ML SUB-Q SCH ×2 (08:22→11:32)
--- NOTE | 2021-07-13 09:38 | Discharge Summary ---
Providers - Providers Date of Admission: 07/12/21 05:21 Date of discharge: 07/13/21 Attending physician: SABRINA PULIDO 07/11/21 23:39 Consult to Physician [CONS] Urgent Comment: Dr. Bonds spoke with Dr. Valdez @ 0033 Consulting Provider: MATTHIEU MARTINEZ Physician Instructions: Reason For Exam: dka 07/12/21 01:09 Consult to Dietitian/Nutrition [CONS] Routine Physician Instructions: Reason For Exam: DKA Reason for Consult: Nutrition Recommendations Reason for Consult: Diet education Primary care physician: KEANU GALICIA Hospitalization Reason for admission: DKA Condition: Critical Hospital course: This is a 20-year-old female with known past medical history of type 1 DM, gastroparesis, and medication noncompliance admitted for DKA. The pt initially initially complained of mild abdominal pain which was controlled with pain management regimen. Patient was placed on insulin gtt and IVF hydration per DKA protocol. The patient was then transitioned to home regimen once anion gap was closed. The patient received antiemetics for N/V and PRN analgesia for pain control. Thorough discussion with patient at the bedside regarding medical compliance. Plan of care was discussed and the importance of medications compliance and associated risks of uncontrolled diabetes was also emphasized. Patient acknowledged understanding and agreement with care plan. The patient was seen by CCM as well. The patient was later stabilized and transferred to the floor off the insulin gtt. the patient's home insulin regimen was resumed and BG remained stable. The patient is felt to have received maximal hospital benefit and will be discharged home. Dedicated discharge time 35 minutes Disposition: 01 HOME / SELF CARE / HOMELESS Final Discharge Diagnosis (Prints w/discharge instructions): DKA, gastroparesis, GERD, volume depletion, medical noncompliance Core Measure Documentation - Palliative Care Palliative Care/ Comfort Measures: Not Applicable - Core Measures Any of the following diagnoses?: none Exam - Constitutional Vitals: Temp Pulse Resp BP Pulse Ox 98.2 F 83 14 101/50 96 07/13/21 05:15 07/13/21 08:05 07/13/21 08:05 07/13/21 05:27 07/13/21 05:27 General appearance: Present: no acute distress, well-nourished - EENT Eyes: Present: PERRL ENT: hearing intact, clear oral mucosa - Neck Neck: Present: supple, normal ROM - Respiratory Respiratory effort: normal Respiratory: bilateral: CTA - Cardiovascular Heart Sounds: Present: S1 & S2. Absent: rub, click - Extremities Extremities: pulses symmetrical, No edema Peripheral Pulses: within normal limits - Abdominal General gastrointestinal: Present: soft, non-tender, non-distended, normal bowel sounds Female genitourinary: Present: normal - Integumentary Integumentary: Present: clear, warm, dry - Musculoskeletal Musculoskeletal: gait normal, strength equal bilaterally - Psychiatric Psychiatric: appropriate mood/affect, intact judgment & insight - Neurologic Neurologic: CNII-XII intact, moves all extremities Plan Activity: advance as tolerated Weight Bearing Status: Weight Bear as Tolerated Diet: diabetic Follow up with: KEANU GALICIA MD [Primary Care Provider] - 3-5 Days Prescriptions: Insulin Lispro [Humalog 100 UNITS/ML Kwikpen] 5 units SQ TIDWM #5 ml Insulin NPH Hum/Reg Insulin Hm [HumuLIN 70/30 Kwikpen] 35 unit SQ QDAY 30 Days Insulin Detemir [Levemir Flextouch] 35 unit SQ BID 30 Days oxyCODONE /ACETAMINOPHEN [Percocet 5/325] 1 tab PO Q4HR #8 tab Metoclopramide [Reglan] 10 mg PO ACHS #120 tablet
[2021-07-13] MEDS ORDERED: FAMOTIDINE 20 MG TAB PO SCH (10:00)
[2021-07-13] MEDS ORDERED: oxyCODONE /ACETAMINOPHEN 5-325MG TAB PO ONE (11:19)
[2021-07-13 11:57] LABS: Basophils % (Auto) 0.2 % (0.0-1.8); Eosinophils % (Auto) 0.1 % (0.0-4.3); Hematocrit 37.3 % (30.3-42.9); Hemoglobin 11.9 gm/dl (10.1-14.3); Lymphocytes % (Auto) 47.3 % (13.4-35.0); Mean Corpuscular HGB Conc 32 % (30-34); Mean Corpuscular Volume 84 fl (79-97); Monocytes # (Auto) 0.4 K/mm3 (0.0-0.8); Monocytes % (Auto) 9.9 % (0.0-7.3); Platelet Count 231 K/mm3 (140-440); Red Blood Count 4.46 M/mm3 (3.65-5.03); Red Cell Distribution Width 18.4 % (13.2-15.2)
[2021-07-13 12:14] LABS: Blood Urea Nitrogen 3 mg/dL (7-17); Calcium 8.7 mg/dL (8.4-10.2); Hemolysis Index 5
[2021-07-13 12:15] LABS: BUN/Creatinine Ratio 6
[2021-07-13 12:43] VITALS: BP 104/66
[2021-07-13] MEDS ORDERED: INSULIN GLARGINE 100 UNITS/ML SUB-Q SCH (22:00)
== END 2021-07-13 14:00 | disposition home or self-care (01) | DRG 639 ==
LOC: ED 22:08 → CC1 07-12 05:21 → 3A 07-12 22:36
PROVIDERS: ADMIT Hospitalist; ATTEND Hospitalist
DX: E10.10 Type 1 diabetes mellitus with ketoacidosis without coma (principal); K31.84 Gastroparesis; E86.0 Dehydration; K21.9 Gastro-esophageal reflux disease without esophagitis; F17.200 Nicotine dependence, unspecified, uncomplicated; Z83.3 Family history of diabetes mellitus; Z82.49 Family history of ischemic heart disease and other diseases of the circulatory system; E86.9 Volume depletion, unspecified; E10.43 Type 1 diabetes mellitus with diabetic autonomic (poly)neuropathy
CPT/HCPCS: 36415; 71045; 80048; 80053; 81001; 82140; 82550; 82805; 82962; 83735; 84100; 84702; 85025; 87040; 93005; 94640; 96374; 96375; 99291; G0378; J3480; J3490; Q9967; J1170; J1815; J2270; J2405; J2765; J3475; J7030; J7040; J7120

== ENCOUNTER 2021-07-14 14:49 | Emergency (ER) | payer SELFPAY ==
[2021-07-14] MEDS ORDERED: MORPHINE 4 MG/1 ML INJ IV ONE (15:18)
[2021-07-14] MEDS ORDERED: ONDANSETRON 4 MG/2 ML INJ IV ONE (15:18)
[2021-07-14] MEDS ORDERED: SODIUM CHLORIDE 0.9% 1000 ML 1,000 ML IV ONE ×2 (15:18→15:19)
[2021-07-14] MEDS ORDERED: METOCLOPRAMIDE 10 MG/2 ML INJ IV ONE (15:18)
[2021-07-14] MEDS ORDERED: diphenhydrAMINE 50 MG/ML VIAL IV ONE (15:19)
--- NOTE | 2021-07-14 15:23 | Emergency Department Report ---
ED Abdominal Pain HPI - General Chief Complaint: Abdominal Pain Stated Complaint: ABD PAIN Time Seen by Provider: 07/14/21 15:15 Source: patient, EMS Mode of arrival: Stretcher Limitations: No Limitations - History of Present Illness Initial Comments: Patient is 20 years old female with history of insulin-dependent diabetes and gastroparesis. Patient presented to the ER via EMS from home for evaluation of abdominal pain, diffuse with no radiation associated with dry heaving's. Patient had multiple admission for DKA before. Patient denied any fever or chills. No chest pain. MD Complaint: abdominal pain -: days(s) Location: diffuse Radiation: none Migration to: no migration Associated Symptoms: nausea, vomiting. denies: diarrhea - Related Data Previous Rx's Medication Instructions Recorded Last Taken Type Insulin Detemir [Levemir Flextouch] 35 unit SQ BID 30 Days 07/13/21 Unknown Rx Insulin Lispro [Humalog 100 5 units SQ TIDWM #5 ml 07/13/21 Unknown Rx UNITS/ML Kwikpen] Insulin NPH Hum/Reg Insulin Hm 35 unit SQ QDAY 30 Days 07/13/21 Unknown Rx [HumuLIN 70/30 Kwikpen] Metoclopramide [Reglan] 10 mg PO ACHS #120 tablet 07/13/21 Unknown Rx oxyCODONE /ACETAMINOPHEN [Percocet 1 tab PO Q4HR #8 tab 07/13/21 Unknown Rx 5/325] Metoclopramide [Reglan] 10 mg PO TID PRN #20 tab 07/14/21 Unknown Rx Ondansetron [Zofran Odt] 4 mg PO Q8HR PRN #14 tab.rapdis 07/14/21 Unknown Rx traMADoL [Ultram 50 MG tab] 50 mg PO Q4HR PRN #14 tablet 07/14/21 Unknown Rx Allergies Allergy/AdvReac Type Severity Reaction Status Date / Time No Known Allergies Allergy Verified 07/14/21 14:56 ED Review of Systems ROS: Stated complaint: ABD PAIN Other details as noted in HPI Comment: All other systems reviewed and negative Constitutional: denies: chills, fever Respiratory: denies: cough, shortness of breath, SOB with exertion, SOB at rest Cardiovascular: denies: chest pain, palpitations Gastrointestinal: abdominal pain, nausea, vomiting. denies: diarrhea, constipation, hematemesis, melena, hematochezia Musculoskeletal: denies: back pain Neurological: denies: headache, weakness, numbness, paresthesias, confusion, abnormal gait ED Past Medical Hx - Past Medical History Hx Diabetes: Yes Hx GERD: Yes Hx Dementia: Yes Additional medical history: Gastroparesis - Social History Smoking Status: Never Smoker - Medications Home Medications: Home Medications Medication Instructions Recorded Confirmed Last Taken Type Insulin Detemir [Levemir Flextouch] 35 unit SQ BID 30 Days 07/13/21 Unknown Rx Insulin Lispro [Humalog 100 5 units SQ TIDWM #5 ml 07/13/21 Unknown Rx UNITS/ML Kwikpen] Insulin NPH Hum/Reg Insulin Hm 35 unit SQ QDAY 30 Days 07/13/21 Unknown Rx [HumuLIN 70/30 Kwikpen] Metoclopramide [Reglan] 10 mg PO ACHS #120 tablet 07/13/21 Unknown Rx oxyCODONE /ACETAMINOPHEN [Percocet 1 tab PO Q4HR #8 tab 07/13/21 Unknown Rx 5/325] Metoclopramide [Reglan] 10 mg PO TID PRN #20 tab 07/14/21 Unknown Rx Ondansetron [Zofran Odt] 4 mg PO Q8HR PRN #14 tab.rapdis 07/14/21 Unknown Rx traMADoL [Ultram 50 MG tab] 50 mg PO Q4HR PRN #14 tablet 07/14/21 Unknown Rx ED Physical Exam - General Limitations: No Limitations General appearance: alert - Head Head exam: Present: atraumatic, normocephalic, normal inspection - Eye Eye exam: Present: normal appearance - ENT ENT exam: Present: normal exam, normal orophraynx, mucous membranes moist - Neck Neck exam: Present: normal inspection, full ROM. Absent: tenderness, meningismus - Respiratory Respiratory exam: Present: normal lung sounds bilaterally - Cardiovascular Cardiovascular Exam: Present: regular rate, normal rhythm, normal heart sounds - GI/Abdominal GI/Abdominal exam: Present: soft, normal bowel sounds. Absent: distended, tenderness, guarding, rebound, rigid, hernia - Extremities Exam Extremities exam: Present: normal inspection, full ROM, normal capillary refill. Absent: tenderness - Back Exam Back exam: Present: normal inspection, full ROM. Absent: CVA tenderness (R), CVA tenderness (L) - Neurological Exam Neurological exam: Present: alert, oriented X3, CN II-XII intact, normal gait, reflexes normal. Absent: motor sensory deficit - Psychiatric Psychiatric exam: Present: normal mood - Skin Skin exam: Present: warm, intact, normal color ED Course Vital Signs 07/14/21 07/14/21 07/14/21 14:53 16:30 16:34 Temperature 98.6 F Pulse Rate 88 85 85 Respiratory 18 18 Rate Blood Pressure 126/63 Blood Pressure 144/101 129/65 [Left] O2 Sat by Pulse 100 99 99 Oximetry 07/14/21 07/14/21 07/14/21 16:56 18:43 19:01 Temperature Pulse Rate 78 62 90 Respiratory 17 17 17 Rate Blood Pressure Blood Pressure 129/65 129/60 126/67 [Left] O2 Sat by Pulse 99 99 99 Oximetry ED Medical Decision Making - Lab Data Result diagrams: 07/14/21 15:24 07/14/21 19:53 - Medical Decision Making Patient is 20 years old female with history of insulin-dependent diabetes and gastroparesis. Patient presented to the ER via EMS from home for evaluation of abdominal pain, diffuse with no radiation associated with dry heaving's. Patient had multiple admission for DKA before. Patient denied any fever or chills. No chest pain. Patient received normal saline, morphine, Zofran, Reglan and Benadryl. Patient stated that she is feeling much better. No more vomiting. Labs reviewed and showed anion gap of 28 improved to 24. Patient given prescription for tramadol, Zofran and Reglan and advised to follow-up with her primary doctor in the next 2 to 3 days and to return to the ER if she develop any symptoms. Critical care attestation.: If time is entered above; I have spent that time in minutes in the direct care of this critically ill patient, excluding procedure time. ED Disposition Clinical Impression: Gastroparesis, Noncompliance, Acute hyperglycemia Disposition: 01 HOME / SELF CARE / HOMELESS Is pt being admited?: No Condition: Stable Instructions: Hyperglycemia, [id number], Gastroparesis, Abdominal Pain (ED) Prescriptions: Metoclopramide [Reglan] 10 mg PO TID PRN #20 tab PRN Reason: Vomiting traMADoL [Ultram 50 MG tab] 50 mg PO Q4HR PRN #14 tablet PRN Reason: Pain Ondansetron [Zofran Odt] 4 mg PO Q8HR PRN #14 tab.rapdis PRN Reason: Nausea And Vomiting Referrals: PRIMARY CARE,MD [Primary Care Provider] - 3-5 Days
[2021-07-14 15:52] LABS: Basophils % (Auto) 0.2 % (0.0-1.8); Eosinophils % (Auto) 0.1 % (0.0-4.3); Hematocrit 42.3 % (30.3-42.9); Hemoglobin 13.3 gm/dl (10.1-14.3); Lymphocytes # (Auto) 0.9 K/mm3 (1.2-5.4); Lymphocytes % (Auto) 39.5 % (13.4-35.0); Mean Corpuscular HGB Conc 32 % (30-34); Mean Corpuscular Volume 84 fl (79-97); Monocytes # (Auto) 0.2 K/mm3 (0.0-0.8); Monocytes % (Auto) 8.2 % (0.0-7.3); Platelet Count 271 K/mm3 (140-440); Red Blood Count 5.05 M/mm3 (3.65-5.03); Red Cell Distribution Width 17.6 % (13.2-15.2)
[2021-07-14 16:14] LABS: Alanine Aminotransferase 11 units/L (7-56); Albumin 4.4 g/dL (3.9-5); Blood Urea Nitrogen 8 mg/dL (7-17); Calcium 9.4 mg/dL (8.4-10.2); Hemolysis Index 4
[2021-07-14 16:15] LABS: BUN/Creatinine Ratio 16; Bilirubin,Direct < 0.2 mg/dL (0-0.2)
[2021-07-14] MEDS ORDERED: INSULIN REGULAR, HUMAN 100 UNITS/1 ML IV ONE (16:28)
[2021-07-14] MEDS ORDERED: KETOROLAC 30 MG/1 ML INJ IV ONE (18:53)
[2021-07-14 19:02] VITALS: BP 126/67
[2021-07-14 19:31] LABS: Bilirubin,Urine NEG (Negative); Blood,Urine NEG (Negative); Color,Urine Colorless (Yellow); Mucus,Urine FEW /HPF; Protein,Urine <15 mg/dL mg/dL (Negative); RBC,Urine < 1.0 /HPF (0.0-6.0); Urobilinogen,Urine < 2.0 mg/dL (<2.0)
[2021-07-14 20:30] LABS: Blood Urea Nitrogen 7 mg/dL (7-17); Calcium 8.5 mg/dL (8.4-10.2); Hemolysis Index 2
[2021-07-14 20:31] LABS: BUN/Creatinine Ratio 18
== END 2021-07-14 21:47 | disposition home or self-care (01) ==
LOC: ED 14:49
DX: K31.84 Gastroparesis (principal); E11.65 Type 2 diabetes mellitus with hyperglycemia; K21.9 Gastro-esophageal reflux disease without esophagitis; Z79.4 Long term (current) use of insulin; Z79.899 Other long term (current) drug therapy
CPT/HCPCS: 36415; 80048; 80076; 81001; 82962; 83690; 84703; 85025; 96361; 96374; 96375; 99284; J1200; J1885; J2270; J2405; J2765; J7030; Q9967; J1815

== ENCOUNTER 2021-12-02 12:28 | Inpatient (IN) | payer MEDICAID, OTHER ==
[2021-12-02] MEDS ORDERED: MORPHINE 4 MG/1 ML INJ IV ONE (13:35)
[2021-12-02] MEDS ORDERED: ONDANSETRON 4 MG/2 ML INJ IV ONE (13:36)
--- NOTE | 2021-12-02 13:42 | Emergency Department Report ---
ED Abdominal Pain HPI - General Chief Complaint: Abdominal Pain Stated Complaint: ABD PAIN/ N/V Time Seen by Provider: 12/02/21 13:26 Source: patient, EMS Mode of arrival: Stretcher Limitations: No Limitations - History of Present Illness Initial Comments: 21-year-old -Russian female with no significant past medical history, complains of cute onset of abdominal pain 3 hours prior to arrival. patient states she was having interview for a job, when suddenly the pain came on. Described the pain as sharp and crampy all over. Denies any diarrhea but admits to having some vomiting MD Complaint: abdominal pain -: Sudden Location: diffuse Radiation: none Migration to: no migration Severity scale (0 -10): 6 Quality: stabbing, aching Consistency: constant Improves With: nothing Worsens With: nothing Associated Symptoms: nausea, vomiting. denies: diarrhea - Related Data Home Medications Medication Instructions Recorded Confirmed Last Taken Insulin Detemir [Levemir Flextouch] 25 unit SQ QHS 12/03/21 12/03/21 Unknown Previous Rx's Medication Instructions Recorded Last Taken Type Insulin Lispro [Humalog 100 5 units SQ TIDWM #5 ml 07/13/21 Unknown Rx UNITS/ML Kwikpen] Insulin NPH Hum/Reg Insulin Hm 35 unit SQ QDAY 30 Days 07/13/21 Unknown Rx [HumuLIN 70/30 Kwikpen] Metoclopramide [Reglan] 10 mg PO ACHS #120 tablet 07/13/21 Unknown Rx oxyCODONE /ACETAMINOPHEN [Percocet 1 tab PO Q4HR #8 tab 07/13/21 Unknown Rx 5/325] Metoclopramide [Reglan] 10 mg PO TID PRN #20 tab 07/14/21 Unknown Rx Ondansetron [Zofran Odt] 4 mg PO Q8HR PRN #14 tab.rapdis 07/14/21 Unknown Rx traMADoL [Ultram 50 MG tab] 50 mg PO Q4HR PRN #14 tablet 07/14/21 Unknown Rx Allergies Allergy/AdvReac Type Severity Reaction Status Date / Time No Known Allergies Allergy Verified 12/02/21 12:33 ED Review of Systems ROS: Stated complaint: ABD PAIN/ N/V Other details as noted in HPI Constitutional: denies: chills, fever Eyes: denies: eye pain, eye discharge, vision change ENT: denies: ear pain, throat pain Respiratory: denies: cough, shortness of breath, wheezing Cardiovascular: denies: chest pain, palpitations Endocrine: no symptoms reported Gastrointestinal: abdominal pain, nausea, vomiting. denies: diarrhea, constipation Genitourinary: denies: urgency, dysuria, discharge Musculoskeletal: denies: back pain, joint swelling, arthralgia Skin: denies: rash, lesions Neurological: denies: headache, weakness, paresthesias Psychiatric: denies: anxiety, depression Hematological/Lymphatic: denies: easy bleeding, easy bruising ED Past Medical Hx - Past Medical History Hx Diabetes: Yes Hx GERD: Yes Hx Dementia: Yes Additional medical history: Gastroparesis - Social History Smoking Status: Never Smoker - Medications Home Medications: Home Medications Medication Instructions Recorded Confirmed Last Taken Type Insulin Lispro [Humalog 100 5 units SQ TIDWM #5 ml 07/13/21 12/03/21 Unknown Rx UNITS/ML Kwikpen] Insulin NPH Hum/Reg Insulin Hm 35 unit SQ QDAY 30 Days 07/13/21 Unknown Rx [HumuLIN 70/30 Kwikpen] Metoclopramide [Reglan] 10 mg PO ACHS #120 tablet 07/13/21 Unknown Rx oxyCODONE /ACETAMINOPHEN [Percocet 1 tab PO Q4HR #8 tab 07/13/21 Unknown Rx 5/325] Metoclopramide [Reglan] 10 mg PO TID PRN #20 tab 07/14/21 Unknown Rx Ondansetron [Zofran Odt] 4 mg PO Q8HR PRN #14 tab.rapdis 07/14/21 Unknown Rx traMADoL [Ultram 50 MG tab] 50 mg PO Q4HR PRN #14 tablet 07/14/21 Unknown Rx Insulin Detemir [Levemir Flextouch] 25 unit SQ QHS 12/03/21 12/03/21 Unknown History ED Physical Exam - General Limitations: No Limitations General appearance: alert, in distress - Head Head exam: Present: atraumatic, normocephalic - Eye Eye exam: Present: normal appearance - ENT ENT exam: Present: mucous membranes moist - Neck Neck exam: Present: normal inspection - Respiratory Respiratory exam: Present: normal lung sounds bilaterally. Absent: respiratory distress - Cardiovascular Cardiovascular Exam: Present: regular rate, normal rhythm. Absent: systolic murmur, diastolic murmur, rubs, gallop - GI/Abdominal GI/Abdominal exam: Present: soft, tenderness, guarding, normal bowel sounds - Extremities Exam Extremities exam: Present: normal inspection - Back Exam Back exam: Present: normal inspection - Neurological Exam Neurological exam: Present: alert, oriented X3 - Psychiatric Psychiatric exam: Present: normal affect, normal mood - Skin Skin exam: Present: warm, dry, intact, normal color. Absent: rash ED Course Vital Signs 12/02/21 12/02/21 12/02/21 12:28 13:13 13:16 Temperature 98.9 F Pulse Rate 87 85 Respiratory 18 14 Rate Blood Pressure 126/74 126/74 Blood Pressure 149/97 [Left] O2 Sat by Pulse 100 98 99 Oximetry 12/02/21 12/02/21 12/02/21 13:30 13:45 14:00 Temperature Pulse Rate 88 91 H 95 H Respiratory 14 10 L Rate Blood Pressure 115/82 134/84 134/84 Blood Pressure [Left] O2 Sat by Pulse 100 100 Oximetry 12/02/21 12/02/21 12/02/21 14:10 14:15 14:30 Temperature Pulse Rate 103 H 101 H Respiratory 18 24 28 H Rate Blood Pressure 120/67 120/67 Blood Pressure [Left] O2 Sat by Pulse 98 99 99 Oximetry 12/02/21 12/02/21 12/02/21 14:45 15:01 15:15 Temperature Pulse Rate 96 H 96 H 97 H Respiratory 16 10 L 11 L Rate Blood Pressure 141/73 140/83 122/75 Blood Pressure [Left] O2 Sat by Pulse 99 99 98 Oximetry 12/02/21 12/02/21 12/02/21 15:30 15:45 16:01 Temperature Pulse Rate 99 H 102 H 100 H Respiratory 16 23 Rate Blood Pressure 140/83 122/75 145/76 Blood Pressure [Left] O2 Sat by Pulse 98 98 98 Oximetry 12/02/21 12/02/21 12/02/21 16:15 16:31 16:45 Temperature Pulse Rate 101 H 99 H Respiratory 12 10 L Rate Blood Pressure 122/75 134/83 145/94 Blood Pressure [Left] O2 Sat by Pulse 98 98 98 Oximetry 12/02/21 12/02/21 12/02/21 17:01 17:15 17:31 Temperature Pulse Rate Respiratory 21 18 22 Rate Blood Pressure 140/80 133/61 133/61 Blood Pressure [Left] O2 Sat by Pulse 97 100 100 Oximetry 12/02/21 12/02/21 12/02/21 17:45 18:01 18:31 Temperature Pulse Rate Respiratory 21 23 12 Rate Blood Pressure 133/61 124/75 106/58 Blood Pressure [Left] O2 Sat by Pulse 100 97 100 Oximetry 12/02/21 12/02/21 12/02/21 19:01 19:15 19:31 Temperature 98 F Pulse Rate 121 H Respiratory 25 H 13 Rate Blood Pressure 129/73 129/67 Blood Pressure [Left] O2 Sat by Pulse 99 97 Oximetry 12/02/21 12/02/21 12/02/21 20:01 20:31 21:01 Temperature Pulse Rate 113 H 110 H Respiratory 10 L 19 19 Rate Blood Pressure 111/55 111/55 129/81 Blood Pressure [Left] O2 Sat by Pulse 99 98 100 Oximetry 12/02/21 12/02/21 12/02/21 21:31 22:01 22:31 Temperature Pulse Rate 109 H 111 H 111 H Respiratory 18 20 20 Rate Blood Pressure 125/80 125/80 100/58 Blood Pressure [Left] O2 Sat by Pulse 100 100 100 Oximetry 12/02/21 12/02/21 12/02/21 23:01 23:29 23:31 Temperature Pulse Rate 120 H 123 H 124 H Respiratory 23 23 23 Rate Blood Pressure 96/58 96/58 103/60 Blood Pressure [Left] O2 Sat by Pulse 98 99 99 Oximetry 12/03/21 12/03/21 12/03/21 00:01 00:31 01:01 Temperature Pulse Rate 129 H 127 H 128 H Respiratory 24 26 H 24 Rate Blood Pressure 96/58 106/53 114/60 Blood Pressure [Left] O2 Sat by Pulse 98 99 98 Oximetry 12/03/21 12/03/21 12/03/21 01:31 02:01 02:31 Temperature Pulse Rate 129 H 129 H 132 H Respiratory 27 H 28 H 26 H Rate Blood Pressure 130/67 142/69 130/74 Blood Pressure [Left] O2 Sat by Pulse 100 99 98 Oximetry 12/03/21 12/03/21 12/03/21 03:01 03:31 04:01 Temperature Pulse Rate 130 H 119 H 126 H Respiratory 10 L 20 22 Rate Blood Pressure 144/84 160/104 133/85 Blood Pressure [Left] O2 Sat by Pulse 99 100 99 Oximetry 12/03/21 12/03/21 12/03/21 04:31 05:01 05:31 Temperature Pulse Rate 125 H 127 H 128 H Respiratory 20 17 20 Rate Blood Pressure 109/62 110/66 105/57 Blood Pressure [Left] O2 Sat by Pulse 99 99 99 Oximetry 12/03/21 12/03/21 12/03/21 06:01 06:30 07:01 Temperature Pulse Rate 133 H 126 H 133 H Respiratory 15 19 12 Rate Blood Pressure 109/67 112/60 109/64 Blood Pressure [Left] O2 Sat by Pulse 98 99 99 Oximetry 12/03/21 12/03/21 12/03/21 07:11 07:21 07:31 Temperature Pulse Rate 124 H 125 H 126 H Respiratory 17 21 18 Rate Blood Pressure 117/74 117/74 117/74 Blood Pressure [Left] O2 Sat by Pulse 100 99 99 Oximetry 12/03/21 07:40 Temperature Pulse Rate 127 H Respiratory 20 Rate Blood Pressure 117/74 Blood Pressure [Left] O2 Sat by Pulse 99 Oximetry ED Medical Decision Making - Lab Data Result diagrams: 12/02/21 13:59 12/03/21 11:05 Critical care attestation.: If time is entered above; I have spent that time in minutes in the direct care of this critically ill patient, excluding procedure time. ED Disposition Clinical Impression: DKA (diabetic ketoacidosis), Gastroparesis Disposition: ADMITTED INPATIENT Is pt being admited?: Yes Does the pt Need Aspirin: No Condition: Serious
[2021-12-02 14:25] LABS: Basophils % (Auto) 0.4 % (0.0-1.8); Hematocrit 38.9 % (30.3-42.9); Lymphocytes # (Auto) 0.9 K/mm3 (1.2-5.4); Lymphocytes % (Auto) 13.9 % (13.4-35.0); Mean Corpuscular HGB Conc 31 % (30-34); Mean Corpuscular Volume 82 fl (79-97); Monocytes # (Auto) 0.2 K/mm3 (0.0-0.8); Platelet Count 234 K/mm3 (140-440); Red Blood Count 4.77 M/mm3 (3.65-5.03); Red Cell Distribution Width 19.7 % (13.2-15.2)
[2021-12-02 14:47] LABS: Alanine Aminotransferase 9 units/L (7-56); Albumin 4.7 g/dL (3.9-5); Calcium 9.7 mg/dL (8.4-10.2); Hemolysis Index 21
[2021-12-02 15:00] LABS: BUN/Creatinine Ratio 15; Blood Urea Nitrogen 9 mg/dL (7-17)
[2021-12-02 15:03] LABS: Bilirubin,Urine NEG (Negative); Blood,Urine NEG (Negative); Color,Urine Straw (Yellow); Protein,Urine <15 mg/dL mg/dL (Negative)
[2021-12-02 15:05] LABS: HCG Qualitative,Urine Negative (Negative); Urobilinogen,Urine < 2 mg/dL (<2.0)
[2021-12-02] MEDS ORDERED: SODIUM CHLORIDE 0.9% 1000 ML 1,000 ML IV ONE ×3 (16:19→23:51)
--- NOTE | 2021-12-02 16:23 | Event Note ---
Date: 12/02/21 Pt signed out to me by Dr. Zaidi @ 03:27pm. Pt is a 21yo F, DMII, presents for evaluation of abdominal pain. HCG neg. Labs reviewed. Per his verbal report at sign out, pt has been given morphine, antiemetics, and IVF. She has a a pending disposition and a pending ct scan of her a/p. I assessed the patient independently. VSS. She is comfortable appearing. CT scan of abdomen pelvis negative for acute pathology. Urine drug screen is positive for marijuana. Patient has significantly elevated anion gap metabolic acidosis. She was given multiple liters of normal saline and repeat basic metabolic panel demonstrates a bicarbonate of 9. Patient is in diabetic ketoacidosis but with mild hyperglycemia. Case was discussed with , admitting hospitalist. He is in agreement that the patient is to be started on a low-dose insulin drip for elevated anion gap metabolic acidosis likely secondary to diabetic ketoacidosis. He has excepted the patient to the hospital service for further management.
--- NOTE | 2021-12-02 16:31 | Cat Scan Report ---
CT ABDOMEN AND PELVIS WITH CONTRAST INDICATION / CLINICAL INFORMATION: ABD PAIN 100ml of [id number]. TECHNIQUE: Axial CT images were obtained through the abdomen and pelvis after 100 cc of Omnipaque [address] scans at this location are performed using CT dose reduction for ALARA by means of automated exposure control. COMPARISON: 06/05/2021 FINDINGS: LOWER CHEST: No significant abnormality. LIVER: There is mild infiltration of the liver. GALLBLADDER: No significant abnormality. BILE DUCTS: No significant abnormality. PANCREAS: No significant abnormality. SPLEEN: No significant abnormality. ADRENALS: No significant abnormality. RIGHT KIDNEY / URETER: No significant abnormality. LEFT KIDNEY / URETER: No significant abnormality. STOMACH / SMALL BOWEL: No significant abnormality. COLON: There is a moderate amount of stool noted in colon. APPENDIX: No significant abnormality. PERITONEUM: No free fluid. No free air. No fluid collection. LYMPH NODES: No significant adenopathy. AORTA / ARTERIES: No significant abnormality. IVC / VEINS: No significant abnormality. URINARY BLADDER: No significant abnormality. REPRODUCTIVE ORGANS: No significant abnormality. ADDITIONAL FINDINGS: None. SKELETAL SYSTEM: No acute abnormality IMPRESSION: 1. There is no obstruction, inflammation, or free air. There are no abnormal fluid collections. Signer Name: Gopal Poe MD Signed: 12/02/2021 4:26 PM Workstation Name: [id number]
[2021-12-02 16:39] LABS: Amphetamine Screen,Urine Negative; Benzodiazepines Screen,Urine Negative; Cocaine Screen,Urine Negative; Methadone Screen,Urine Negative; Opiate Screen,Urine Negative
[2021-12-02] MEDS ORDERED: METOCLOPRAMIDE 10 MG/2 ML INJ IV ONE (17:07)
[2021-12-02] MEDS ORDERED: KETOROLAC 30 MG/1 ML INJ IV ONE (17:07)
[2021-12-02 17:29] LABS: Cannabinoid Screen,Urine Positive
[2021-12-02] MEDS ORDERED: ALUM-MAG HYDROXIDE-SIMETHICONE 200-200-20MG/5ML ORAL LIQD 30 ML PO ONE (20:00)
[2021-12-02] MEDS ORDERED: FAMOTIDINE 20 MG/2 ML INJ IV ONE (20:00)
[2021-12-02 20:09] LABS: Blood Urea Nitrogen 8 mg/dL (7-17); Calcium 8.6 mg/dL (8.4-10.2); Hemolysis Index 5
[2021-12-02 20:17] LABS: BUN/Creatinine Ratio 16
[2021-12-02] MEDS ORDERED: LORazepam 2 MG/ML VIAL IV ONE (20:50)
[2021-12-02 23:23] LABS: Blood Urea Nitrogen 9 mg/dL (7-17); Calcium 9.3 mg/dL (8.4-10.2); Hemolysis Index 76
[2021-12-02 23:34] LABS: BUN/Creatinine Ratio 15
[2021-12-03] MEDS ORDERED: DEXTROSE 50% IN WATER (25GM) 50 ML SYRINGE IV PRN ×2 (00:24→15:03)
[2021-12-03 00:47] LABS: ABG Base Excess -18.5 mmol/L (-2.0-3.0); ABG HCO3 7.3 mmol/L (20.0-26.0); ABG Methemoglobin 0.7 % (0.0-1.5); ABG PCO2 18.7 mm Hg; ABG PH 7.209 pH Units (7.350-7.450); ABG PO2 119.5 mm Hg (80.0-90.0)
[2021-12-03] MEDS ORDERED: MORPHINE 4 MG/1 ML INJ IV PRN (01:00)
[2021-12-03] MEDS ORDERED: INSULIN REGULAR, HUMAN 100 UNITS in SODIUM CHLORIDE 0.9% 99 ML IV SCH ×3 (01:00→01:20)
[2021-12-03] MEDS ORDERED: MAGNESIUM HYDROXIDE (MOM) ORAL LIQD UDC PO PRN (01:00)
[2021-12-03] MEDS ORDERED: ACETAMINOPHEN 325 MG TAB PO PRN (01:00)
[2021-12-03] MEDS ORDERED: MORPHINE 2 MG/1 ML INJ IV PRN (01:00)
[2021-12-03] MEDS ORDERED: SODIUM CHLORIDE 0.9% 1000 ML 1,000 ML IV SCH (01:00)
--- NOTE | 2021-12-03 01:16 | History and Physical Report ---
History of Present Illness Date of examination: 12/02/21 Date of admission: 12/02/2021 Chief complaint: Nausea and Vomiting History of present illness: 21-year-old -[place] female with significant past medical history diabetes mellitus, GERD and gastroparesis presents to the emergency room today with acute onset of abdominal pain. Abdominal pain is said to be crampy and generalized. She denies any diarrhea but has been having nausea and vomiting. She denies any fever or chills, no chest pain or shortness of breath, denies any headache or dizziness. She has been compliant with her medications. Work-up in the emergency room today, labs significant for blood glucose of 338, CO2 of 13, anion gap 27. Urinalysis was negative. UDS was positive for marijuana. Patient being admitted in [facility]. Past History Past Medical History: diabetes, GERD, other (Gastroparesis) Past Surgical History: No surgical history Social history: no significant social history Medications and Allergies Allergies Allergy/AdvReac Type Severity Reaction Status Date / Time No Known Allergies Allergy Verified 12/02/21 12:33 Home Medications Medication Instructions Recorded Confirmed Last Taken Type Insulin Detemir [Levemir Flextouch] 35 unit SQ BID 30 Days 07/13/21 Unknown Rx Insulin Lispro [Humalog 100 5 units SQ TIDWM #5 ml 07/13/21 Unknown Rx UNITS/ML Kwikpen] Insulin NPH Hum/Reg Insulin Hm 35 unit SQ QDAY 30 Days 07/13/21 Unknown Rx [HumuLIN 70/30 Kwikpen] Metoclopramide [Reglan] 10 mg PO ACHS #120 tablet 07/13/21 Unknown Rx oxyCODONE /ACETAMINOPHEN [Percocet 1 tab PO Q4HR #8 tab 07/13/21 Unknown Rx 5/325] Metoclopramide [Reglan] 10 mg PO TID PRN #20 tab 07/14/21 Unknown Rx Ondansetron [Zofran Odt] 4 mg PO Q8HR PRN #14 tab.rapdis 07/14/21 Unknown Rx traMADoL [Ultram 50 MG tab] 50 mg PO Q4HR PRN #14 tablet 07/14/21 Unknown Rx Active Meds: Active Medications Acetaminophen (Acetaminophen 325 Mg Tab) 650 mg PO Q6H PRN PRN Reason: Pain MILD(1-3)/Fever >100.5/HATCH Dextrose (Dextrose 50% In Water (25gm) 50 Ml Syringe) 0 ml IV Q30MIN PRN; Protocol PRN Reason: Hypoglycemia Sodium Chloride (Nacl 0.9% 1000 Ml) 1,000 mls @ 250 mls/hr IV ONCE ONE Stop: 12/03/21 03:50 Last Admin: 12/03/21 00:11 Dose: 250 mls/hr Insulin Human Regular 100 (units/ Sodium Chloride) 100 mls @ 2 mls/hr IV TITR DAVID; Protocol Insulin Human Regular 100 (units/ Sodium Chloride) 100 mls @ 1 mls/hr IV TITR DAVID; Protocol Sodium Chloride (Nacl 0.9% 1000 Ml) 1,000 mls @ 150 mls/hr IV DIRECT DAVID Insulin Human Regular 100 (units/ Sodium Chloride) 100 mls @ 1 mls/hr IV TITR DAVID; Protocol Potassium Chloride/Dextrose/Sod Cl (D5w/0.45% Nacl/Kcl 20 Meq) 20 meq in 1,000 mls @ 125 mls/hr IV DIRECT DAVID Magnesium Hydroxide (Magnesium Hydroxide (Mom) Oral Liqd Udc) 30 ml PO Q4H PRN PRN Reason: Constipation Morphine Sulfate (Morphine 2 Mg/1 Ml Inj) 2 mg IV Q4H PRN PRN Reason: Pain, Moderate (4-6) Morphine Sulfate (Morphine 4 Mg/1 Ml Inj) 4 mg IV Q4H PRN PRN Reason: Pain , Severe (7-10) Sodium Chloride (Sodium Chloride 0.9% 10 Ml Flush Syringe) 10 ml IV BID DAVID Sodium Chloride (Sodium Chloride 0.9% 10 Ml Flush Syringe) 10 ml IV PRN PRN PRN Reason: LINE FLUSH Review of Systems Constitutional: no fever, no chills Ears, nose, mouth and throat: no nasal congestion, no sore throat Cardiovascular: no chest pain, no palpitations Respiratory: no cough, no shortness of breath Gastrointestinal: nausea, vomiting, no diarrhea Genitourinary Female: no pelvic pain, no flank pain, no dysuria Musculoskeletal: no neck pain, no low back pain Integumentary: no rash, no pruritis Neurological: no headaches, no confusion Psychiatric: no anxiety, no depression Endocrine: no polyphagia, no polydipsia, no polyuria, no nocturia Exam - Constitutional Vitals: Temp Pulse Resp BP Pulse Ox 98 F 127 H 26 H 106/53 99 12/02/21 19:15 12/03/21 00:31 12/03/21 00:31 12/03/21 00:31 12/03/21 00:31 General appearance: Present: no acute distress, well-nourished - EENT Eyes: Present: PERRL, EOM intact. Absent: scleral icterus ENT: hearing intact, clear oral mucosa, dentition normal - Neck Neck: Present: supple, normal ROM - Respiratory Respiratory effort: normal Respiratory: bilateral: CTA - Cardiovascular Rhythm: regular Heart Sounds: Present: S1 & S2. Absent: gallop, systolic murmur, diastolic murmur, rub, click - Extremities Extremities: no ischemia, pulses intact, pulses symmetrical, No edema, normal temperature, normal color, Full ROM Peripheral Pulses: within normal limits - Abdominal General gastrointestinal: Present: soft, non-tender, non-distended, normal bowel sounds. Absent: mass - Integumentary Integumentary: Present: clear, warm, dry, normal turgor. Absent: rash - Musculoskeletal Musculoskeletal: strength equal bilaterally - Psychiatric Psychiatric: appropriate mood/affect, intact judgment & insight, memory intact, cooperative - Neurologic Neurologic: CNII-XII intact, no focal deficits, moves all extremities Results - Labs CBC & Chem 7: 12/02/21 13:59 12/03/21 05:49 Labs: Abnormal lab results 12/02/21 12/02/21 12/02/21 Range/Units 12:55 13:59 13:59 MCH 25 L (28-32) pg RDW 19.7 H (13.2-15.2) % Lymph # (Auto) 0.9 L (1.2-5.4) K/mm3 Seg Neutrophils % 82.7 H (40.0-70.0) % ABG pH (7.350-7.450) pH Units ABG pO2 (80.0-90.0) mm Hg ABG HCO3 (20.0-26.0) mmol/L ABG Base Excess (-2.0-3.0) mmol/L Potassium (3.6-5.0) mmol/L Chloride (98-107) mmol/L Carbon Dioxide 13 L (22-30) mmol/L Creatinine (0.6-1.2) mg/dL Glucose 338 H (65-100) mg/dL POC Glucose 365 H (70-105) mg/dL 12/02/21 12/02/21 12/02/21 Range/Units 19:27 19:37 22:56 MCH (28-32) pg RDW (13.2-15.2) % Lymph # (Auto) (1.2-5.4) K/mm3 Seg Neutrophils % (40.0-70.0) % ABG pH (7.350-7.450) pH Units ABG pO2 (80.0-90.0) mm Hg ABG HCO3 (20.0-26.0) mmol/L ABG Base Excess (-2.0-3.0) mmol/L Potassium 5.6 H (3.6-5.0) mmol/L Chloride 107.4 H 110.3 H (98-107) mmol/L Carbon Dioxide 9 L* 9 L* (22-30) mmol/L Creatinine 0.5 L (0.6-1.2) mg/dL Glucose 274 H 283 H (65-100) mg/dL POC Glucose 274 H (70-105) mg/dL 12/03/21 Range/Units 00:25 MCH (28-32) pg RDW (13.2-15.2) % Lymph # (Auto) (1.2-5.4) K/mm3 Seg Neutrophils % (40.0-70.0) % ABG pH 7.209 L (7.350-7.450) pH Units ABG pO2 119.5 H (80.0-90.0) mm Hg ABG HCO3 7.3 L (20.0-26.0) mmol/L ABG Base Excess -18.5 L (-2.0-3.0) mmol/L Potassium (3.6-5.0) mmol/L Chloride (98-107) mmol/L Carbon Dioxide (22-30) mmol/L Creatinine (0.6-1.2) mg/dL Glucose (65-100) mg/dL POC Glucose (70-105) mg/dL Assessment and Plan Assessment: 1. Diabetic ketoacidosis 2. Gastroparesis Plan: 1. Patient admitted and placed on insulin drip and IV fluid. 2. We will monitor Accu-Cheks closely. 3. Patient placed on antiemetic. DVT Propjhylaxis:SQ Heparin Code Status: Full Code
[2021-12-03 02:38] LABS: Blood Urea Nitrogen 8 mg/dL (7-17); Calcium 9.5 mg/dL (8.4-10.2); Hemolysis Index 23
[2021-12-03 03:11] LABS: BUN/Creatinine Ratio 13
[2021-12-03] MEDS ORDERED: SODIUM BICARB 8.4% 50 MEQ/50 ML SYRINGE IV ONE (03:15)
--- NOTE | 2021-12-03 04:00 | Event Note ---
Date: 12/03/21 [facility] central line note Nursing unable to establish peripheral IV so as requested to status IV access. Consent obtained verbally Location: Right femoral The skin was prepped and draped in a sterile fashion. The skin and subcutaneous tissue was anesthetized with 1% lidocaine The needle was inserted blood was aspirated after first attempt Using the Seldinger technique a guidewire was inserted. A small incision was made and a dilator was placed. Blood return was good from all 3 ports. All ports were flushed with saline. The central venous line was secured in place with adhesive Sterile OpSite dressing was applied The patient tolerated the procedure well There were no complications
[2021-12-03] MEDS: D5W/0.45% NACL/KCL 20 MEQ 20 MEQ/1,000 ML BAG IV SCH ×2 (04:10→12:13)
[2021-12-03 06:27] LABS: Blood Urea Nitrogen 8 mg/dL (7-17); Calcium 9.1 mg/dL (8.4-10.2); Hemolysis Index 12
[2021-12-03 06:29] LABS: BUN/Creatinine Ratio 11
[2021-12-03] MEDS ORDERED: LACTATED RINGERS 2,000 ML IV ONE (09:00)
[2021-12-03] MEDS ORDERED: FAMOTIDINE 20 MG/2 ML INJ IV SCH (10:00)
--- NOTE | 2021-12-03 11:33 | Progress Note ---
<KEYLA ORO - Last Filed: 12/03/21 20:06> Assessment and Plan Assessment and plan: This is a 21-year-old female with known past medical history of type 1 diabetes mellitus, GERD, and gastroparesis admitted for DKA Hospital course to Date: 12/03: Stable on RA, symptpoms resolved, denied any N/V, no abdominal pain. Remains on the DKA protocol. Additional IVF bolus administered, will transition to home regimen once anion gap is closed. Monitor and replace electrolytes as needed. PRN antiemetic for N/V and PRN analgesia for pain control. Thorough discussion with patient at the bedside. Plan of care was discussed and the importance of medications compliance and associated risks of uncontrolled diabetes was also emphasized. Patient acknowledges understanding and agreement with care plan. Case management consulted for assistance with medications and health insurance. Assessment and Plan #DKA (Diabetic Ketoacidosis) #Anion Gap Metabolic Acidosis #Uncontrolled Type 1 Diabetes Mellitus #Medication Noncompliance - HgbA1c is 16 from 06/2021 - On DKA protocol - Additonal IVF boluses administered - Continue insulin gtt and IVF hydration per DKA protocol - Monitor and replace electrolytes as needed - Monitor anion gap - Serial labs ordered #Abdominal Pain-resolved #Nausea and Vomiting-resolved #H/o Gastroparesis - Most likely due to DKA - CT Abd/Pelvis unremarkable - Symptoms resolved. Patient denied any N/V, no abdominal pain - Continue insulin gtt and IV fluid resuscitation therapy - Continue PRN antiemetic - Continue PRN analgesia for pain management #Hyperkalemia-improved #Metabolic Acidosis - secondary to above - Continue DKA protocol - Monitor and replace electrolytes as needed - Serial BMP ordered #GI/DVT Prophylaxis - PPI- Pepcid - SCD to bilateral lower extremities while in bed #Advance Care Planning - Disease education conducted, care plan discussed, diagnoses discussed, and importance of medications compliance was also discussed. Patient acknowledges understanding and agreement with care plan. Patient informed of the seriousness of her diagnoses. - Case management consulted for assistance with meds and health insurance The high probability of a clinically significant, sudden or life threatening deterioration of the [multiple] system(s) required my full and direct attention, intervention and personal management. The aggregate critical care time was [60] minutes. This time is in addition to time spent performing reported procedures but includes the following: [x] Data Review and interpretation [x] Patient assessment and monitoring of vital signs [x] Documentation [x] Medication orders and management Disposition Plan: ICU Total Time Spent with Patient (Minutes): 60 History Interval history: Patient seen and examined at the bedside. Fully AAO, on RA. Symptoms resolved this am, patient denied any N/V, no abdominal pain nor any discomfort. Remains on insulin gtt and IVF hydration per DKA protocol. VSS. VENKATESH overnight Hospitalist Physical - Constitutional Vitals: Temp Pulse Resp BP Pulse Ox 98 F 112 H 31 H 117/74 100 12/02/21 19:15 12/03/21 08:50 12/03/21 08:50 12/03/21 07:40 12/03/21 08:50 General appearance: Present: no acute distress, well-nourished - EENT Eyes: Present: PERRL, EOM intact ENT: hearing intact - Neck Neck: Present: normal ROM - Respiratory Respiratory effort: normal Respiratory: bilateral: CTA - Cardiovascular Rhythm: regular Heart Sounds: Present: S1 & S2 - Extremities Extremities: no ischemia, pulses intact, pulses symmetrical Peripheral Pulses: within normal limits - Abdominal General gastrointestinal: soft, non-distended, normal bowel sounds - Integumentary Integumentary: Present: clear, warm, dry - Psychiatric Psychiatric: appropriate mood/affect, cooperative - Neurologic Neurologic: CNII-XII intact, moves all extremities - Allied Health Allied health notes reviewed: nursing Results - Labs CBC & Chem 7: 12/02/21 13:59 12/03/21 05:49 Labs: Laboratory Last Values WBC 6.8 K/mm3 (4.5-11.0) 12/02/21 13:59 RBC 4.77 M/mm3 (3.65-5.03) 12/02/21 13:59 Hgb 12.0 gm/dl (10.1-14.3) 12/02/21 13:59 Hct 38.9 % (30.3-42.9) 12/02/21 13:59 MCV 82 fl (79-97) 12/02/21 13:59 MCH 25 pg (28-32) L 12/02/21 13:59 MCHC 31 % (30-34) 12/02/21 13:59 RDW 19.7 % (13.2-15.2) H 12/02/21 13:59 Plt Count 234 K/mm3 (140-440) 12/02/21 13:59 Lymph % (Auto) 13.9 % (13.4-35.0) 12/02/21 13:59 [place] % (Auto) 3.0 % (0.0-7.3) 12/02/21 13:59 Eos % (Auto) 0.0 % (0.0-4.3) 12/02/21 13:59 Baso % (Auto) 0.4 % (0.0-1.8) 12/02/21 13:59 Lymph # (Auto) 0.9 K/mm3 (1.2-5.4) L 12/02/21 13:59 [place] # (Auto) 0.2 K/mm3 (0.0-0.8) 12/02/21 13:59 Eos # (Auto) 0.0 K/mm3 (0.0-0.4) 12/02/21 13:59 Baso # (Auto) 0.0 K/mm3 (0.0-0.1) 12/02/21 13:59 Seg Neutrophils % 82.7 % (40.0-70.0) H 12/02/21 13:59 Seg Neutrophils # 5.6 K/mm3 (1.8-7.7) 12/02/21 13:59 ABG pH 7.209 pH Units (7.350-7.450) L 12/03/21 00:25 ABG pCO2 18.7 mm Hg 12/03/21 00:25 ABG pO2 119.5 mm Hg (80.0-90.0) H 12/03/21 00:25 ABG HCO3 7.3 mmol/L (20.0-26.0) L 12/03/21 00:25 ABG O2 Saturation 98.0 % (95.0-99.0) 12/03/21 00:25 ABG O2 Content 16.5 (0.0-44) 12/03/21 00:25 ABG Base Excess -18.5 mmol/L (-2.0-3.0) L 12/03/21 00:25 ABG Hemoglobin 12.1 gm/dl (12.0-16.0) 12/03/21 00:25 ABG Carboxyhemoglobin 1.4 % (0.0-5.0) 12/03/21 00:25 ABG Methemoglobin 0.7 % (0.0-1.5) 12/03/21 00:25 Oxyhemoglobin 95.9 % (95.0-99.0) 12/03/21 00:25 FiO2 21 % 12/03/21 00:25 Sodium 145 mmol/L (137-145) 12/03/21 05:49 Potassium 4.3 mmol/L (3.6-5.0) 12/03/21 05:49 Chloride 114.7 mmol/L (98-107) H 12/03/21 05:49 Carbon Dioxide 11 mmol/L (22-30) L 12/03/21 05:49 Anion Gap 24 mmol/L 12/03/21 05:49 BUN 8 mg/dL (7-17) 12/03/21 05:49 Creatinine 0.7 mg/dL (0.6-1.2) 12/03/21 05:49 Estimated GFR > 60 ml/min 12/03/21 05:49 BUN/Creatinine Ratio 11 % 12/03/21 05:49 Glucose 194 mg/dL (65-100) H 12/03/21 05:49 POC Glucose 174 mg/dL (70-105) H 12/03/21 06:57 Calcium 9.1 mg/dL (8.4-10.2) 12/03/21 05:49 Phosphorus 3.70 mg/dL (2.5-4.5) 12/03/21 01:33 Magnesium 1.90 mg/dL (1.7-2.3) 12/03/21 01:33 Total Bilirubin 0.20 mg/dL (0.1-1.2) 12/02/21 13:59 AST 13 units/L (5-40) 12/02/21 13:59 ALT 9 units/L (7-56) 12/02/21 13:59 Alkaline Phosphatase 76 units/L (35-129) 12/02/21 13:59 Total Protein 7.1 g/dL (6.3-8.2) 12/02/21 13:59 Albumin 4.7 g/dL (3.9-5) 12/02/21 13:59 Albumin/Globulin Ratio 2.0 % 12/02/21 13:59 Lipase 21 units/L (13-60) 12/02/21 13:59 Urine Color Straw (Yellow) 12/02/21 Unknown Urine Turbidity Clear (Clear) 12/02/21 Unknown Urine pH 5.0 (5.0-7.0) 12/02/21 Unknown Ur Specific [place] 1.026 (1.003-1.030) 12/02/21 Unknown Urine Protein <15 mg/dl mg/dL (Negative) 12/02/21 Unknown Urine Glucose (UA) >=500 mg/dL (Negative) 12/02/21 Unknown Urine Ketones 80 mg/dL (Negative) 12/02/21 Unknown Urine Blood Neg (Negative) 12/02/21 Unknown Urine Nitrite Neg (Negative) 12/02/21 Unknown Urine Bilirubin Neg (Negative) 12/02/21 Unknown Urine Urobilinogen < 2 mg/dL (<2.0) 12/02/21 Unknown Ur Leukocyte Esterase Neg (Negative) 12/02/21 Unknown Urine WBC (Auto) 1.0 /HPF (0.0-6.0) 12/02/21 Unknown Urine RBC (Auto) 1.0 /HPF (0.0-6.0) 12/02/21 Unknown U Epithel Cells (Auto) 1.0 /HPF (0-13.0) 12/02/21 Unknown Urine HCG, Qual Negative (Negative) 12/02/21 Unknown Urine Opiates Screen Negative 12/02/21 Unknown Urine Methadone Screen Negative 12/02/21 Unknown Ur Barbiturates Screen Negative 12/02/21 Unknown Ur Phencyclidine Scrn Negative 12/02/21 Unknown Ur Amphetamines Screen Negative 12/02/21 Unknown U Benzodiazepines Scrn Negative 12/02/21 Unknown Urine Cocaine Screen Negative 12/02/21 Unknown U Marijuana (THC) Screen Positive 12/02/21 Unknown Drugs of Abuse Note Disclamer 12/02/21 Unknown Active Medications - Current Medications Current Medications: Generic Name Dose Route Start Last Admin Trade Name Freq PRN Reason Stop Dose Admin Acetaminophen 650 mg 12/03/21 01:00 Acetaminophen 325 Mg Tab PO Q6H PRN Pain MILD(1-3)/Fever >100.5/HATCH Dextrose 0 ml 12/03/21 00:24 Dextrose 50% In Water (25gm) 50 Ml Syringe IV Q30MIN PRN Hypoglycemia Protocol Famotidine 20 mg 12/03/21 10:00 12/03/21 10:24 Famotidine 20 Mg/2 Ml Inj IV 20 mg QDAY DAVID Administration Insulin Human Regular 100 100 mls @ 2 mls/hr 12/03/21 01:20 12/03/21 10:26 units/ Sodium Chloride IV 2 units/hr TITR DAVID 2 mls/hr Titration Protocol 2 UNITS/HR Sodium Chloride 1,000 mls @ 150 mls/hr 12/03/21 01:00 12/03/21 04:18 Nacl 0.9% 1000 Ml IV 150 mls/hr DIRECT DAVID Administration Potassium Chloride/Dextrose/Sod Cl 20 meq in 1,000 mls @ 125 mls/hr 12/03/21 01:00 12/03/21 04:10 D5w/0.45% Nacl/Kcl 20 Meq IV 125 mls/hr DIRECT DAVID Administration Magnesium Hydroxide 30 ml 12/03/21 01:00 Magnesium Hydroxide (Mom) Oral Liqd Udc PO Q4H PRN Constipation Morphine Sulfate 2 mg 12/03/21 01:00 12/03/21 04:30 Morphine 2 Mg/1 Ml Inj IV 2 mg Q4H PRN Administration Pain, Moderate (4-6) Sodium Chloride 10 ml 12/03/21 10:00 12/03/21 10:25 Sodium Chloride 0.9% 10 Ml Flush Syringe IV 10 ml BID DAVID Administration Sodium Chloride 10 ml 12/03/21 01:00 Sodium Chloride 0.9% 10 Ml Flush Syringe IV PRN PRN LINE FLUSH Nutrition/Malnutrition Assess - Dietary Evaluation Nutrition/Malnutrition Findings: Nutrition Notes Start: 12/03/21 11:01 Freq: Status: Active Protocol: Document 12/03/21 11:01 VIKTOR (Rec: 12/03/21 11:04 VIKTOR [id number]) Nutrition Notes Need for Assessment generated from: MD Order,Education Initial or Follow up Brief Note Current Diagnosis Diabetes Other Pertinent Diagnosis DKA Current Diet NPO Labs/Tests BG 338 upon admission Pertinent Medications Insulin gtt, D5 1/2NS + 20mEq KCl at 125ml/hr Weight Status Overweight Subjective/Other Information RD consulted for diet education. Pt with a few admissions this yr for DKA and was assessed by RD and declined diet education . She has a hx of non-compliance. Burn Absent Trauma Absent GI Symptoms Nausea,Vomiting Minimum of two criteria No Nutrition Intervention Follow-Up By: 12/10/21 Additional Comments F/U: diet advancement, diet education needs <BRAD GREENWOOD - Last Filed: 12/05/21 07:19> Assessment and Plan Assessment and plan: I saw and evaluated the patient. I agree with the findings and the plan of care as documented in the Nurse Practitioner's~note, with the following corrections and additions. Hospitalist Physical - Constitutional Vitals: Temp Pulse Resp BP Pulse Ox 99.8 F H 102 H 24 131/71 99 12/03/21 20:00 12/03/21 21:40 12/03/21 21:40 12/03/21 21:40 12/03/21 21:40 Results - Labs CBC & Chem 7: 12/02/21 13:59 12/03/21 11:05 Labs: Laboratory Last Values WBC 6.8 K/mm3 (4.5-11.0) 12/02/21 13:59 RBC 4.77 M/mm3 (3.65-5.03) 12/02/21 13:59 Hgb 12.0 gm/dl (10.1-14.3) 12/02/21 13:59 Hct 38.9 % (30.3-42.9) 12/02/21 13:59 MCV 82 fl (79-97) 12/02/21 13:59 MCH 25 pg (28-32) L 12/02/21 13:59 MCHC 31 % (30-34) 12/02/21 13:59 RDW 19.7 % (13.2-15.2) H 12/02/21 13:59 Plt Count 234 K/mm3 (140-440) 12/02/21 13:59 Lymph % (Auto) 13.9 % (13.4-35.0) 12/02/21 13:59 [place] % (Auto) 3.0 % (0.0-7.3) 12/02/21 13:59 Eos % (Auto) 0.0 % (0.0-4.3) 12/02/21 13:59 Baso % (Auto) 0.4 % (0.0-1.8) 12/02/21 13:59 Lymph # (Auto) 0.9 K/mm3 (1.2-5.4) L 12/02/21 13:59 [place] # (Auto) 0.2 K/mm3 (0.0-0.8) 12/02/21 13:59 Eos # (Auto) 0.0 K/mm3 (0.0-0.4) 12/02/21 13:59 Baso # (Auto) 0.0 K/mm3 (0.0-0.1) 12/02/21 13:59 Seg Neutrophils % 82.7 % (40.0-70.0) H 12/02/21 13:59 Seg Neutrophils # 5.6 K/mm3 (1.8-7.7) 12/02/21 13:59 ABG pH 7.209 pH Units (7.350-7.450) L 12/03/21 00:25 ABG pCO2 18.7 mm Hg 12/03/21 00:25 ABG pO2 119.5 mm Hg (80.0-90.0) H 12/03/21 00:25 ABG HCO3 7.3 mmol/L (20.0-26.0) L 12/03/21 00:25 ABG O2 Saturation 98.0 % (95.0-99.0) 12/03/21 00:25 ABG O2 Content 16.5 (0.0-44) 12/03/21 00:25 ABG Base Excess -18.5 mmol/L (-2.0-3.0) L 12/03/21 00:25 ABG Hemoglobin 12.1 gm/dl (12.0-16.0) 12/03/21 00:25 ABG Carboxyhemoglobin 1.4 % (0.0-5.0) 12/03/21 00:25 ABG Methemoglobin 0.7 % (0.0-1.5) 12/03/21 00:25 Oxyhemoglobin 95.9 % (95.0-99.0) 12/03/21 00:25 FiO2 21 % 12/03/21 00:25 Sodium 139 mmol/L (137-145) 12/03/21 11:05 Potassium 3.7 mmol/L (3.6-5.0) 12/03/21 11:05 Chloride 110.7 mmol/L (98-107) H 12/03/21 11:05 Carbon Dioxide 18 mmol/L (22-30) L D 12/03/21 11:05 Anion Gap 14 mmol/L 12/03/21 11:05 BUN 7 mg/dL (7-17) 12/03/21 11:05 Creatinine 0.5 mg/dL (0.6-1.2) L 12/03/21 11:05 Estimated GFR > 60 ml/min 12/03/21 11:05 BUN/Creatinine Ratio 14 % 12/03/21 11:05 Glucose 135 mg/dL (65-100) H 12/03/21 11:05 POC Glucose 144 mg/dL (70-105) H 12/03/21 16:18 Calcium 8.1 mg/dL (8.4-10.2) L 12/03/21 11:05 Phosphorus 1.20 mg/dL (2.5-4.5) L D 12/03/21 11:05 Magnesium 1.70 mg/dL (1.7-2.3) 12/03/21 11:05 Total Bilirubin 0.20 mg/dL (0.1-1.2) 12/02/21 13:59 AST 13 units/L (5-40) 12/02/21 13:59 ALT 9 units/L (7-56) 12/02/21 13:59 Alkaline Phosphatase 76 units/L (35-129) 12/02/21 13:59 Total Protein 7.1 g/dL (6.3-8.2) 12/02/21 13:59 Albumin 4.7 g/dL (3.9-5) 12/02/21 13:59 Albumin/Globulin Ratio 2.0 % 12/02/21 13:59 Lipase 21 units/L (13-60) 12/02/21 13:59 Urine Color Straw (Yellow) 12/02/21 Unknown Urine Turbidity Clear (Clear) 12/02/21 Unknown Urine pH 5.0 (5.0-7.0) 12/02/21 Unknown Ur Specific [place] 1.026 (1.003-1.030) 12/02/21 Unknown Urine Protein <15 mg/dl mg/dL (Negative) 12/02/21 Unknown Urine Glucose (UA) >=500 mg/dL (Negative) 12/02/21 Unknown Urine Ketones 80 mg/dL (Negative) 12/02/21 Unknown Urine Blood Neg (Negative) 12/02/21 Unknown Urine Nitrite Neg (Negative) 12/02/21 Unknown Urine Bilirubin Neg (Negative) 12/02/21 Unknown Urine Urobilinogen < 2 mg/dL (<2.0) 12/02/21 Unknown Ur Leukocyte Esterase Neg (Negative) 12/02/21 Unknown Urine WBC (Auto) 1.0 /HPF (0.0-6.0) 12/02/21 Unknown Urine RBC (Auto) 1.0 /HPF (0.0-6.0) 12/02/21 Unknown U Epithel Cells (Auto) 1.0 /HPF (0-13.0) 12/02/21 Unknown Urine HCG, Qual Negative (Negative) 12/02/21 Unknown Urine Opiates Screen Negative 12/02/21 Unknown Urine Methadone Screen Negative 12/02/21 Unknown Ur Barbiturates Screen Negative 12/02/21 Unknown Ur Phencyclidine Scrn Negative 12/02/21 Unknown Ur Amphetamines Screen Negative 12/02/21 Unknown U Benzodiazepines Scrn Negative 12/02/21 Unknown Urine Cocaine Screen Negative 12/02/21 Unknown U Marijuana (THC) Screen Positive 12/02/21 Unknown Drugs of Abuse Note Disclamer 12/02/21 Unknown Nutrition/Malnutrition Assess - Dietary Evaluation Nutrition/Malnutrition Findings: Nutrition Notes Start: 12/03/21 11:01 Freq: Status: Discharge Protocol: Document 12/03/21 11:01 VIKTOR (Rec: 12/03/21 11:04 VIKTOR [id number]) Nutrition Notes Need for Assessment generated from: MD Order,Education Initial or Follow up Brief Note Current Diagnosis Diabetes Other Pertinent Diagnosis DKA Current Diet NPO Labs/Tests BG 338 upon admission Pertinent Medications Insulin gtt, D5 1/2NS + 20mEq KCl at 125ml/hr Weight Status Overweight Subjective/Other Information RD consulted for diet education. Pt with a few admissions this yr for DKA and was assessed by RD and declined diet education . She has a hx of non-compliance. Burn Absent Trauma Absent GI Symptoms Nausea,Vomiting Minimum of two criteria No Nutrition Intervention Follow-Up By: 12/10/21 Additional Comments F/U: diet advancement, diet education needs
--- NOTE | 2021-12-03 11:36 | Electrocardiograph Report ---
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
--- NOTE | 2021-12-03 12:19 | Consultation ---
History of Present Illness Consult date: 12/03/21 Requesting physician: IVANIA RAHMAN Reason for consult: other (DKA) History of present illness: PULMONARY/CCM CONSULT NOTE (Full dictation # [id number]) Please see dictated notes for full details Past History Past Medical History: diabetes, GERD, other (Gastroparesis) Past Surgical History: No surgical history Social history: no significant social history Medications and Allergies Allergies Allergy/AdvReac Type Severity Reaction Status Date / Time No Known Allergies Allergy Verified 12/02/21 12:33 Home Medications Medication Instructions Recorded Confirmed Last Taken Type Insulin Lispro [Humalog 100 5 units SQ TIDWM #5 ml 07/13/21 Unknown Rx UNITS/ML Kwikpen] Insulin NPH Hum/Reg Insulin Hm 35 unit SQ QDAY 30 Days 07/13/21 Unknown Rx [HumuLIN 70/30 Kwikpen] Metoclopramide [Reglan] 10 mg PO ACHS #120 tablet 07/13/21 Unknown Rx oxyCODONE /ACETAMINOPHEN [Percocet 1 tab PO Q4HR #8 tab 07/13/21 Unknown Rx 5/325] Metoclopramide [Reglan] 10 mg PO TID PRN #20 tab 07/14/21 Unknown Rx Ondansetron [Zofran Odt] 4 mg PO Q8HR PRN #14 tab.rapdis 07/14/21 Unknown Rx traMADoL [Ultram 50 MG tab] 50 mg PO Q4HR PRN #14 tablet 07/14/21 Unknown Rx Insulin Detemir [Levemir Flextouch] 35 unit SQ QHS 12/03/21 Unknown History Active Meds: Active Medications Acetaminophen (Acetaminophen 325 Mg Tab) 650 mg PO Q6H PRN PRN Reason: Pain MILD(1-3)/Fever >100.5/HATCH Dextrose (Dextrose 50% In Water (25gm) 50 Ml Syringe) 0 ml IV Q30MIN PRN; Protocol PRN Reason: Hypoglycemia Famotidine (Famotidine 20 Mg/2 Ml Inj) 20 mg IV QDAY DAVID Last Admin: 12/03/21 10:24 Dose: 20 mg Insulin Human Regular 100 (units/ Sodium Chloride) 100 mls @ 2 mls/hr IV TITR DAVID; Protocol Last Titration: 12/03/21 10:26 Dose: 2 units/hr, 2 mls/hr Sodium Chloride (Nacl 0.9% 1000 Ml) 1,000 mls @ 150 mls/hr IV DIRECT DAVID Last Admin: 12/03/21 04:18 Dose: 150 mls/hr Potassium Chloride/Dextrose/Sod Cl (D5w/0.45% Nacl/Kcl 20 Meq) 20 meq in 1,000 mls @ 125 mls/hr IV DIRECT DAVID Last Admin: 12/03/21 12:13 Dose: 125 mls/hr Magnesium Hydroxide (Magnesium Hydroxide (Mom) Oral Liqd Udc) 30 ml PO Q4H PRN PRN Reason: Constipation Morphine Sulfate (Morphine 2 Mg/1 Ml Inj) 2 mg IV Q4H PRN PRN Reason: Pain, Moderate (4-6) Last Admin: 12/03/21 04:30 Dose: 2 mg Sodium Chloride (Sodium Chloride 0.9% 10 Ml Flush Syringe) 10 ml IV BID DAVID Last Admin: 12/03/21 10:25 Dose: 10 ml Sodium Chloride (Sodium Chloride 0.9% 10 Ml Flush Syringe) 10 ml IV PRN PRN PRN Reason: LINE FLUSH Physical Examination Vital signs: Vital Signs Temp Pulse Resp BP Pulse Ox 98.9 F 87 18 149/97 100 12/02/21 12:28 12/02/21 12:28 12/02/21 12:28 12/02/21 12:28 12/02/21 12:28 Results - Laboratory Findings CBC and BMP: 12/02/21 13:59 12/03/21 11:05 ABG ABG pH 7.209 pH Units (7.350-7.450) L 12/03/21 00:25 ABG pCO2 18.7 mm Hg 12/03/21 00:25 ABG pO2 119.5 mm Hg (80.0-90.0) H 12/03/21 00:25 ABG O2 Saturation 98.0 % (95.0-99.0) 12/03/21 00:25 Abnormal lab findings: Abnormal Labs 12/02/21 12/02/21 12/02/21 12:55 13:59 13:59 MCH 25 L RDW 19.7 H Lymph # (Auto) 0.9 L Seg Neutrophils % 82.7 H ABG pH ABG pO2 ABG HCO3 ABG Base Excess Potassium Chloride Carbon Dioxide 13 L Creatinine Glucose 338 H POC Glucose 365 H 12/02/21 12/02/21 12/02/21 19:27 19:37 22:56 MCH RDW Lymph # (Auto) Seg Neutrophils % ABG pH ABG pO2 ABG HCO3 ABG Base Excess Potassium 5.6 H Chloride 107.4 H 110.3 H Carbon Dioxide 9 L* 9 L* Creatinine 0.5 L Glucose 274 H 283 H POC Glucose 274 H 12/03/21 12/03/21 12/03/21 00:25 01:04 01:33 MCH RDW Lymph # (Auto) Seg Neutrophils % ABG pH 7.209 L ABG pO2 119.5 H ABG HCO3 7.3 L ABG Base Excess -18.5 L Potassium Chloride 111.3 H Carbon Dioxide 7 L* Creatinine Glucose 254 H POC Glucose 282 H 12/03/21 12/03/21 12/03/21 02:27 03:59 05:02 MCH RDW Lymph # (Auto) Seg Neutrophils % ABG pH ABG pO2 ABG HCO3 ABG Base Excess Potassium Chloride Carbon Dioxide Creatinine Glucose POC Glucose 218 H 217 H 214 H 12/03/21 12/03/21 12/03/21 05:49 06:08 06:57 MCH RDW Lymph # (Auto) Seg Neutrophils % ABG pH ABG pO2 ABG HCO3 ABG Base Excess Potassium Chloride 114.7 H Carbon Dioxide 11 L Creatinine Glucose 194 H POC Glucose 175 H 174 H
[2021-12-03 13:03] LABS: Blood Urea Nitrogen 7 mg/dL (7-17); Calcium 8.1 mg/dL (8.4-10.2); Hemolysis Index 2
[2021-12-03 13:05] LABS: BUN/Creatinine Ratio 14
[2021-12-03] MEDS ORDERED: MAGNESIUM SULFATE 2 GM/50 ML BAG IV ONE (14:00)
[2021-12-03] MEDS ORDERED: POTASSIUM PHOSPHATE 15 MMOL in SODIUM CHLORIDE 0.9% 250ML 250 ML IV ONE (14:00)
[2021-12-03] MEDS ORDERED: INSULIN GLARGINE 100 UNITS/ML SUB-Q SCH (15:04)
[2021-12-03] MEDS: METOCLOPRAMIDE 10 MG TAB PO SCH ×2 (17:16→21:46)
[2021-12-03] MEDS: INSULIN REGULAR, HUMAN 100 UNITS/1 ML SUB-Q SCH ×2 (17:16→21:47)
[2021-12-03 21:51] VITALS: BP 131/71
--- NOTE | 2021-12-04 03:48 | Consultation ---
DATE OF CONSULTATION: 12/03/2021 PULMONARY CRITICAL CARE CONSULT NOTE CONSULTING PHYSICIAN: Dr. Goins. REASON FOR CONSULTATION: Diabetic ketoacidosis. CHIEF COMPLAINT AND HISTORY OF PRESENT ILLNESS: As follows. The patient is a now 21-year-old -[place] female with past medical history significant amongst other things for a diagnosis of diabetes that was made about 10 years ago. She also has gastroesophageal reflux disease and the complication of gastroparesis, came to the Emergency Room, complaining of acute onset abdominal pain, crampy generalized, denied any diarrhea. She had nausea and vomiting. She states that she will occasionally forget to take her medications, but tries to be as compliant as she can. She denies fevers or chills. She denies any chest pain or shortness of breath. Denies headaches. Denies any new sores or wounds on her body. Workup in the Emergency Room revealed diabetic ketoacidosis with anion gap of 27, serum bicarbonate of 13 and she is admitted on the IV insulin drip prior to the intensive care unit where I stopped by to see her. When I stopped by to see her, she was resting in bed. Abdominal pain was feeling a little better. She was still on the IV insulin drip. Denies any more vomiting, but she still feels a little nauseous at times. With regards to tobacco use/abuse history. She denies tobacco use. This really is as much of the history of this presentation. PAST MEDICAL HISTORY: Diabetes, gastroesophageal reflux disease, gastroparesis. PAST SURGICAL HISTORY: Denies. MEDICATIONS: She was on at the time I stopped by to see her according to the medication administration record included the following: Tylenol 650 mg p.o. q. 6 hours p.r.n. mild pain or fevers, Pepcid 20 mg p.o. daily, IV insulin drip was going at 2 units per hour, magnesium sulfate 2 grams IV x 1. Milk of magnesia 30 mg p.o. q. 4 hours p.r.n. constipation, Reglan 5 mg p.o. q. a.c. and bedtime scheduled, morphine sulfate 2 mg IV q. 4 hours p.r.n. moderate pain, D5 half NS with 20 mEq of K per liter run at 125 mL per hour. She also received 15 millimoles of potassium phosphate. ALLERGIES: No known drug allergies. DIET: Slightly obese. Denies acute weight loss or gain in the preceding few weeks to months. FAMILY AND SOCIAL HISTORY: Lives in the community. Denies current alcohol, tobacco or illicit drug use or abuse. Her UDS was positive for THC. FAMILY HISTORY: Otherwise, noncontributory. REVIEW OF SYSTEMS: No loss of consciousness. No new onset seizures. No new onset focal weakness. Denies gross hematochezia or melena. Denies gross hematuria or dysuria. Denies hematemesis. She did have some emesis. Denies heat or cold intolerance. Complete 13-system review of systems obtained. Pertinent positives and/or negatives as in body of history above, otherwise noncontributory. Of note, she also denied polydipsia and polyuria. PHYSICAL EXAMINATION: VITAL SIGNS: On presentation, she was afebrile, temperature 98.9 degrees Fahrenheit, pulse of 87, respiratory rate of 18, blood pressure 149/97, O2 sats 100% on room air. GENERAL: She is a young, obese female. Normocephalic, atraumatic. Resting in bed with normal respiratory effort at rest. HEAD, EYES, EARS, NOSE AND THROAT: Anicteric. No conjunctival erythema. Oropharynx was dry. NECK: No gross jugular venous distention, no thyromegaly. Grossly, there were no palpable lymph nodes in the supraclavicular or submandibular lymph node chains. LUNGS: Auscultation of both lung mcneal unremarkable. Clear bilaterally. HEART: Sounds 1 and 2 are heard, regular rate and rhythm without overt rubs or murmurs. ABDOMEN: Soft, full, bowel sounds are positive. Mild epigastric tenderness. No palpable hepatosplenomegaly. EXTREMITIES: Without overt digital clubbing or cyanosis, no pedal edema. Pedal pulses are 2+ bilaterally. NEUROLOGIC: Pupils are equal, round, about 4 mm, reactive to light. Extraocular muscle movements intact. She moves all 4 extremities spontaneously. SKIN: Normal turgor without overt cellulitis or rash. Please see the wound care nurses' notes for full description of her skin. PSYCHIATRIC: Mood was normal. Affect was appropriate. She had intact judgment and insight. LABORATORY DATA: From my review are as follows: White cell count 6800, hemoglobin 12.0, hematocrit 38.9, platelet count 234. Arterial blood gas showed a pH of 7.21, pCO2 of 19, pO2 of 120 that was on room air. Serum sodium 141, potassium 4.3, chloride 106, bicarbonate 13, BUN 9, creatinine 0.6, glucose was 338. Liver function test within normal limits. Lipase within normal limits. Urinalysis, she is spilling glucose, otherwise negative for nitrites and leukocyte esterase and no bacteria. Urine screen was negative. Urine drug screen was presumptive positive for THC. No microbiology studies. A CT of the abdomen and pelvis was done at presentation. I have reviewed the radiologist's interpretation and it is reported as no obstruction, inflammation. No free air, no abnormal fluid collections. ASSESSMENT: * Abdominal pain due to diabetic ketoacidosis. * Diabetic ketoacidosis. * History of gastroparesis. * History of diabetes. * Metabolic acidosis. * Element of medication noncompliance. PLAN: I have told her we will continue the IV insulin therapy for now. We are waiting on the next set of labs. She should be able to transition to oral nutrition and off the DKA protocol. Tobacco abstinence or cessation was strongly counseled at bedside despite her denial of using any now. In light of the drug screen illicit drug use or abuse, counseling was also done. She is appropriately on GI prophylaxis, DVT prophylaxis with SCDs. Flu and pneumonia vaccination will be addressed per protocol. Thank you very much for the consult. We will follow along and make further recommendations as picture progresses/becomes clearer. She is critically ill on life-sustaining interventions including the IV insulin therapy, at high risk of from endocrine system decompensation. At this time, I spent about 35 minutes of critical care time without overlap and excluding any procedural time that may be necessary. TID: [id number] RECEIPT: [id number] PAMELA/MITRA
[2021-12-04] MEDS ORDERED: FAMOTIDINE 20 MG TAB PO SCH (10:00)
[2021-12-04] MEDS ORDERED: INSULIN GLARGINE 100 UNITS/ML SUB-Q SCH (22:00)
== END 2021-12-03 23:18 | disposition home or self-care (01) | DRG 639 ==
LOC: ED 12:28 → CC1 12-03 01:02
PROVIDERS: ADMIT Internal Medicine Geriatric Medicine; ATTEND Internal Medicine
DX: E11.10 Type 2 diabetes mellitus with ketoacidosis without coma (principal); K31.84 Gastroparesis
CPT/HCPCS: 36415; 74177; 80048; 80053; 80307; 81001; 81025; 82803; 82962; 83690; 83735; 84100; 85025; 93005; G0378; J3480; J3490; J7510; Q9967; J1815; J1885; J2060; J2270; J2405; J2765; J3475; J7030; J7050; J7120